=== PATIENT | male | born 1940 | race Caucasian/White ===

== ENCOUNTER 2017-09-15 12:24 | Day surgery (SDC) | payer MEDICARE, OTHER ==
[~2017-09-15] VITALS: Ht 175.3 cm; Wt 90.7 kg
[~2017-09-15 12:24] MED LIST: ACYCLOVIR200 MG PO; ASPIRIN EC325 MG PO; ATENOLOL25 MG PO; BISOPROLOL FUMAR5 MG PO; COZAAR25 MG PO; CRESTOR40 MG NG; LIPITOR40 MG PO; NORCO 5-325 TA1 EACH PO; PRAVASTATIN SOD40 MG PO; SEPTRA DS TABL1 EACH PO
[2017-09-15] MEDS ORDERED: ASPIR-LOW81 MG PO (12:43)
[2017-09-15] MEDS ORDERED: CENTRUM SILVER1 EAC3 PO (12:44)
--- NOTE | 2017-09-15 15:27 | NUR ---
09/15/17 Maureen7 Silvia Best 1523-PATIENT ARRIVED TO PACU ON 2L NC O2 SAT 100% PATIENT AWAKE DENIES PAIN OR NAUSEA. RR EVEN. ABDOMEN SOFT LAYING LEFT LATERAL. PASSING FLATUS.
--- NOTE | 2017-09-16 09:53 | OR ---
[facility] [address], [place] [address] Signed DATE OF OPERATION: 09/15/2017 SURGEON: Emre Mendoza MD PREOPERATIVE DIAGNOSIS: History of hyperplastic polyp 2008. POSTOPERATIVE DIAGNOSIS: Normal colon to cecum. PROCEDURE: Total colonoscopy to cecum. ANESTHESIA: Intravenous sedation, fentanyl 100 mcg, Versed 5 mg. INDICATION: This 76-year-old white man is a patient of Dr. Villegas. He underwent colonoscopy by me in 2008, at which time he was found to have a hyperplastic polyp. He has been referred for screening colonoscopy on the basis of his age and time interval since last colonoscopy. The risks of bleeding, infection, and perforation related to colonoscopy reviewed with him. He understands and wished to proceed. FINDINGS: The prep was good. Complete colonoscopy was undertaken to the cecum without question. There were deep sulci of the sigmoid, but no obvious diverticula proper. He had no signs of polyps or other abnormality. PROCEDURE IN DETAIL: The patient was brought to the endoscopy suite and placed in lateral decubitus position, given intravenous sedation to the point of slurred speech and nystagmus. Digital rectal examination was normal. An Olympus video colonoscope was passed in the rectum and manipulated throughout the colon, ultimately intubating the cecum itself. The ileocecal valve and appendiceal orifice were normal. Scope was withdrawn from that point and examination throughout carefully and deliberately showed no evidence of abnormality. In the sigmoid and left colon, were deep sulci of the haustra, but no sign of actual diverticula. Retroflexed view of the rectum was normal. Scope was straightened and withdrawn and removed, and the patient was taken to the recovery room in good condition. Electronically Signed By: EMRE MENDOZA MD 09/16/17 0953 PATIENT NAME: EMRE DAVIS OPERATIVE REPORT DATE OF : 38 REPORT #: [id number] PHYSICIAN: EMRE MENDOZA MD PCP: BETZAIDA MONSIVAIS MD REPORT IS CONFIDENTIAL AND NOT TO BE RELEASED WITHOUT AUTHORIZATION [facility] [address], [place] [address] Signed CONCLUSION DIAGNOSIS: Normal colon. PLAN: Expectant management as he does not have high risk profile for additional development of polyps or cancer. He will return to the ongoing care of Dr. Villegas. MD PRUDENCE Niño/MODL /[id number] cc: Ilia Villegas MD Copies: ILIA VILLEGAS MD ~ Electronically Signed By: EMRE MENDOZA MD 09/16/17 0953 PATIENT NAME: EMRE DAVIS MIRYAM OPERATIVE REPORT DATE OF : 38 REPORT #: [id number] PHYSICIAN: EMRE MENDOZA MD PCP: BETZAIDA MONSIVAIS MD REPORT IS CONFIDENTIAL AND NOT TO BE RELEASED WITHOUT AUTHORIZATION
== END 2017-09-15 16:15 | disposition home or self-care (01) ==
LOC: OPS 12:24 → DS 12:24 → OPS 13:00 → DS 13:00 → OPS 16:15
PROVIDERS: Surgery
PROC: 0DJD8ZZ Inspection of Lower Intestinal Tract, Via Natural or Artificial Opening Endoscopic (ICD-10-PCS; principal; 2017-09-15 13:00)
DX: Z12.11 Encounter for screening for malignant neoplasm of colon (principal); E78.00 Pure hypercholesterolemia, unspecified; I10 Essential (primary) hypertension; Z86.010 Personal history of colon polyps; Z88.8 Allergy status to other drugs, medicaments and biological substances; Z87.891 Personal history of nicotine dependence; Z98.890 Other specified postprocedural states; Z98.41 Cataract extraction status, right eye; Z98.42 Cataract extraction status, left eye; Z90.89 Acquired absence of other organs; Z95.3 Presence of xenogenic heart valve; Z86.14 Personal history of Methicillin resistant Staphylococcus aureus infection
CPT/HCPCS: 99153; G0500; J0290; J1580; J2250; J3010; J7120

== ENCOUNTER 2018-08-28 13:37 | Emergency (ER) | payer MEDICARE, OTHER ==
[~2018-08-28] VITALS: Ht 175.3 cm; Wt 90.7 kg
[~2018-08-28 13:37] MED LIST changes: +AMOXICILLIN500 MG PO; +ASPIR-LOW81 MG PO; +CENTRUM SILVER1 EAC3 PO; +TRIAMCINOLONE A15 GM TOP
[2018-08-28] MEDS ORDERED: LEVOTHYROXINE25 MCG PO (13:50)
--- NOTE | 2018-08-29 13:56 | EKG ---
[facility] [address] [facility] [place] [address] Signed Sinus bradycardia Left anterior fascicular block Abnormal ECG No previous ECGs available Confirmed by BURT CANNON MD ([id number]) on 08/29/2018 1:56:09 PM Electronically Signed By: BURT CANNON MD 08/29/18 1356 PATIENT NAME: EMRE DAVIS Electrocardiogram DATE OF : 38 PHYSICIAN: BURT CANNON MD REPORT #: [id number] REPORT IS CONFIDENTIAL AND NOT TO BE RELEASED WITHOUT AUTHORIZATION
== END 2018-08-28 16:36 | disposition short-term general hospital (02) ==
LOC: ED 13:37
DX: S82.102A Unspecified fracture of upper end of left tibia, initial encounter for closed fracture (principal); S82.832A Other fracture of upper and lower end of left fibula, initial encounter for closed fracture; V00.328A Other snow-ski accident, initial encounter; I10 Essential (primary) hypertension; Z88.5 Allergy status to narcotic agent; Z88.8 Allergy status to other drugs, medicaments and biological substances; Z79.899 Other long term (current) drug therapy; Z79.82 Long term (current) use of aspirin
CPT/HCPCS: 71045; 73560; 73590; 80053; 81001; 85025; 85610; 90471; 90714; 93005; 93010; 96374; 99291; J3010

== ENCOUNTER → 2018-10-12 | Emergency (ER) | payer MEDICARE, OTHER ==
[~2018-10-12] VITALS: Ht 175.3 cm; Wt 90.7 kg
[~2018-10-12] MED LIST changes: +LEVOTHYROXINE25 MCG PO; +TAMSULOSIN HCL0.4 MG PO
--- OUTSIDE RECORDS SUMMARY | ~2018-10-12 | XMS | Clinical Summary ---
Demographics + + + | Address | [address] | | | [place] [address] | + + + | Home Phone | | + + + | Preferred Language | Unknown | + + + | Marital Status | | + + + | [employer] Affiliation | LUT | + + + | Race | White | + + + | Ethnic Group | Not or | + + + Author + + + | Author | [facility] | + + + | Organization | [facility] | + + + | Address | Unknown | + + + | Phone | Unavailable | + + + Support + + + + + | Name | Relationship | Address | Phone | + + + + + | STANTON MENENDEZ | ECON | [place] | | + + + + + Care Team Providers + +------+ + | Care Heavy Threader Name | Role | Phone | + +------+ + | Ilia Villegas MD | PP | | + +------+ + Source Comments [facility] is fully live on both EpicCare Ambulatory and EpicCare InPatient[facility] Allergies + + + + + + | Active Allergy | Reactions | Severity | Noted | Comments | | | | | Date | | + + + + + + | Codeine | Rash | | 08/28/19 | | | | | | 19 | | + + + + + + | Carvedilol | Hives | | 08/28/19 | | | | | | 19 | | + + + + + + | Rosuvastatin | Hives | | 08/28/19 | | | | | | 19 | | + + + + + + | Atorvastatin Calcium | Rash | | 08/28/19 | | | | | | 19 | | + + + + + + | Lisinopril | Hives | | 08/28/19 | | | | | | 19 | | + + + + + + | Metoprolol | Rash | | 08/28/19 | | | | | | 19 | | + + + + + + Current Medications + + +---------+---------+------+------+-------+ | Prescription | Sig. | Disp. | Refills | Star | End | Statu | | | | | | t | Date | s | | | | | | Date | | | + + +---------+---------+------+------+-------+ | losartan 100 mg | Take 100 mg by mouth | | | | | Activ | | oral | once daily. | | | | | e | | tabletIndications: | Indications: high | | | | | | | high blood pressure | blood pressure | | | | | | + + +---------+---------+------+------+-------+ | pravastatin 40 mg | Take 40 mg by mouth | | | | | Activ | | oral tablet | once daily at | | | | | e | | | bedtime. | | | | | | + + +---------+---------+------+------+-------+ | bisoprolol 5 mg | Take 5 mg by mouth | | | | | Activ | | oral tablet | once daily. | | | | | e | + + +---------+---------+------+------+-------+ | levothyroxine 25 | Take 25 mcg by mouth | | | | | Activ | | mcg oral tablet | before breakfast. | | | | | e | + + +---------+---------+------+------+-------+ | aspirin EC 81 mg | Take 81 mg by mouth | | | | | Activ | | oral tablet,delayed | once daily. | | | | | e | | release (DR/EC) | | | | | | | + + +---------+---------+------+------+-------+ | TURMERIC ORAL | Take 900 mg by mouth | | | | | Activ | | | once daily. | | | | | e | + + +---------+---------+------+------+-------+ | acyclovir 400 mg | Take 400 mg by mouth | | | | | Activ | | oral tablet | four times daily as | | | | | e | | | needed (Cold | | | | | | | | sores). | | | | | | + + +---------+---------+------+------+-------+ | acetaminophen 500 | Take 2 tablets by | | | 02/2 | | Activ | | mg oral tablet | mouth three times | | | 820 | | e | | | daily. Use this | | | 19 | | | | | medication to help | | | | | | | | wean off your | | | | | | | | stronger opiate | | | | | | | | medication. DO NOT | | | | | | | | exceed 3200 mg in a | | | | | | | | 24 hr period. | | | | | | + + +---------+---------+------+------+-------+ | oxyCODONE | Take 1 to 2 tablets | 90 | 0 | 02/2 | | Activ | | (immediate release) | by mouth every three | tablet | | 820 | | e | | 5 mg oral | hours as needed | | | 19 | | | | tabletIndications: | (moderate pain | | | | | | | Closed fracture of | refractory to | | | | | | | left tibia and | non-opiates). | | | | | | | fibula, initial | | | | | | | | encounter | | | | | | | + + +---------+---------+------+------+-------+ | polyethylene | Mix 1 packet and | 24 | 0 | 02/2 | | Activ | | glycol 17 gram oral | take orally once | packet | | 820 | | e | | powder in packet | daily as needed (1st | | | 19 | | | | | line - for no BM | | | | | | | | for 2 days). | | | | | | + + +---------+---------+------+------+-------+ | senna-docusate | Take 1 tablet by | | | 02/2 | | Activ | | 8.6-50 mg oral | mouth two times | | | 8/20 | | e | | tablet | daily. | | | 19 | | | + + +---------+---------+------+------+-------+ | tamsulosin 0.4 mg | Take 1 capsule by | 60 | 0 | 02/2 | | Activ | | oral capsule | mouth once daily. | capsule | | 8/20 | | e | | | | | | 19 | | | + + +---------+---------+------+------+-------+ Active Problems + + + | Problem | Noted Date | + + + | Acquired hypothyroidism | 08/31/2018 | + + + | Closed fracture of left tibia and fibula, initial encounter | 08/29/2018 | + + + Encounters +--------+ + + + + | Date | Type | Specialty | Care Team | Description | +--------+ + + + + | 09/02/ | Pharmacy | | | | | 2019 | Visit | | | | +--------+ + + + + | 08/30/ | Procedure | | | | | 2019 | Pass | | | | +--------+ + + + + | 08/30/ | Surgery | | Richard Gonzalez, | Open Reduction | | 2018 | | | MD | Internal | | | | | | Fixationleft tibial | | | | | | plateau fracture | +--------+ + + + + | 08/29/ | Anesthesia | | Nidhi High MD | | | 2019 | Event | | | | +--------+ + + + + | 08/28/ | Hospital | | Jesus Manuel, | | | 2019 - | Encounter | | Jeffrey Hull MD | | | | | | Yesenia Hong MD | | | 09/02/ | | | Richard Gonzalez MD | | | 2018 | | | | | +--------+ + + + + +---+ + | | Discharge | | | Summaries | | | - Shatzer, | | | Natalya, | | | AGACNP - | | | 09/02/2018 | | | 8:51 AM | | | PST | | | Formatting | | | of this | | | note may be | | | different | | | from the | | | original.OR | | | [facility] | | | & [facility] | | | [facility] | | | EPARTMENT | | | OF | | | ORTHOPAEDIC | | | S & | | | REHABILITAT | | | IONINPATIEN | | | T HOSPITAL | | | DISCHARGE | | | SUMMARY& | | | INTERDISCIP | | | LINARY | | | INSTRUCTION | | | SPatient: | | | Emre C | | | SpencerMRN: | | | | | | [id number] | | | : | | | [id number] | | | dmission | | | Date: | | | 08/28/2018Di | | | scharge | | | Date: | | | 09/02/2018 | | | Attending | | | Physician: | | | Richard M | | | Friess, | | | MDPCP: | | | Ilia | | | Bakari, | | | MDService: | | | [facility] | | | Orthopaedic | | | s & | | | Rehabilitat | | | ionDiagnose | | | s Principal | | | Final | | | Diagnosis: | | | 1. L | | | bicondylar | | | tibial | | | plateau | | | fracture, | | | nondisplace | | | dProcedures | | | | | | 08/30/2018: | | | 1. ORIF L | | | tibial | | | plateauBrie | | | f Hospital | | | Course Emre | | | Shon is | | | a 77 y.o. | | | male | | | admitted | | | for the | | | procedure(s | | | ) described | | | above. | | | The | | | inpatient | | | stay | | | related to | | | this | | | procedure(s | | | ) took an | | | uncomplicat | | | ed | | | perioperati | | | ve course | | | and the | | | patient was | | | followed | | | closely by | | | the | | | attending | | | providers, | | | resident | | | providers, | | | and | | | medical/maryse | | | sing staff. | | | Post | | | operatively | | | , the | | | patient was | | | admitted | | | to the | | | hospital | | | for | | | convalescen | | | t care. | | | Pain | | | control was | | | managed | | | with iv/po | | | pain | | | medication | | | as needed. | | | The | | | Patient was | | | given | | | 24hrs of IV | | | | | | antibiotics | | | | | | post-operat | | | ively. For | | | DVT | | | prophylaxis | | | the | | | patient was | | | started on | | | Lovenox | | | and SCDs | | | were also | | | used. The | | | patient | | | made | | | appropriate | | | gains | | | toward | | | activity | | | and | | | functional | | | goals while | | | an | | | inpatient, | | | working | | | daily with | | | physical | | | therapy. | | | While on | | | the | | | hospital | | | floor, the | | | patient | | | tolerated | | | oral intake | | | sufficient | | | to | | | maintain | | | nutrition | | | and | | | hydration. | | | The | | | surgical | | | wound | | | remained | | | clean, dry, | | | and intact | | | without | | | signs | | | concerning | | | for | | | infection. | | | The | | | patient was | | | felt | | | appropriate | | | for | | | discharge | | | to home, | | | and the | | | patient | | | and/or | | | family | | | members | | | agree with | | | this course | | | of action. | | | Diet | | | Regular | | | Regular | | | diet- There | | | are no | | | restriction | | | s to your | | | diet. You | | | may eat or | | | drink | | | whatever | | | you prefer, | | | though | | | healthy | | | food | | | choices are | | | | | | recommended | | | . Wound | | | Care - If | | | you have | | | sutures or | | | gus, do | | | not get | | | your wound | | | wet for 3-5 | | | days after | | | your | | | operation. | | | Sponge bath | | | or cover | | | the | | | incision | | | with a | | | waterproof | | | bandage. | | | Keep your | | | incision | | | covered | | | with a | | | dressing | | | until there | | | is no | | | discharge | | | on | | | bandage.- | | | If you have | | | | | | Steri-Strip | | | s (paper | | | tape) over | | | your | | | incision, | | | keep the | | | incision | | | covered | | | until there | | | is no | | | discharge | | | on bandage. | | | Do not | | | remove | | | Steri-Strip | | | s, they | | | will fall | | | off on | | | their own. | | | Trim edges | | | of the | | | Steri-Strip | | | s if they | | | start to | | | peel up. Do | | | not get | | | your wound | | | wet for 5-7 | | | days after | | | your | | | operation.- | | | Once wound | | | is closed | | | (no | | | drainage), | | | you may | | | shower. Let | | | water run | | | over wound. | | | Pat dry. | | | Do not | | | scrub or | | | soak wound | | | in water.- | | | Avoid using | | | lotions, | | | powders, | | | oils, or | | | ointments | | | on your | | | incision.- | | | DO NOT let | | | anyone | | | start you | | | on | | | antibiotics | | | if they | | | suspect | | | your wound | | | is | | | infected. | | | Call [facility] | | | Orthopedics | | | first at | | | [phone] | | | 0. Activity | | | | | | Nonweightbe | | | aring left | | | leg | | | Condition | | | on | | | Discharge | | | Stable | | | Follow-Up | | | Appointment | | | s | | | ORTHOPEDICS | | | OUTPATIENT | | | CLINIC: [place] | | | to have | | | local | | | provider | | | (PCP) | | | remove | | | sutures in | | | 3 weeks | | | (~09/20). | | | Follow up | | | in 6 weeks | | | (~10/11) with | | | Dr Gonzalez. | | | Call | | | [phone] | | | 0 to | | | confirm or | | | schedule | | | this | | | appointment | | | . PCP: As | | | needed for | | | any medical | | | concerns | | | not related | | | to your | | | surgery. | | | Medication | | | List START | | | taking | | | these | | | medications | | | | | | acetaminoph | | | en 500 mg | | | TabCommonly | | | known as: | | | | | | TYLENOLTake | | | 2 tablets | | | by mouth | | | three times | | | daily. Use | | | this | | | medication | | | to help | | | wean off | | | your | | | stronger | | | opiate | | | medication. | | | DO NOT | | | exceed 3200 | | | mg in a 24 | | | hr period. | | | oxyCODONE | | | (immediate | | | release) 5 | | | mg | | | TabCommonly | | | known as: | | | | | | ROXICODONET | | | mahi 1 to 2 | | | tablets by | | | mouth every | | | three | | | hours as | | | needed | | | (moderate | | | pain | | | refractory | | | to | | | non-opiates | | | ). | | | polyethylen | | | e glycol 17 | | | gram | | | PwpkCommonl | | | y known as: | | | | | | MIRALAXMix | | | 1 packet | | | and take | | | orally once | | | daily as | | | needed (1st | | | line - for | | | no BM for | | | 2 days). | | | senna-docus | | | ate 8.6-50 | | | mg | | | TabCommonly | | | known as: | | | SENOKOT | | | STake 1 | | | tablet by | | | mouth two | | | times | | | daily. | | | tamsulosin | | | 0.4 mg | | | CapCommonly | | | known as: | | | FLOMAXTake | | | 1 capsule | | | by mouth | | | once daily. | | | CONTINUE | | | taking | | | these | | | medications | | | acyclovir | | | 400 mg | | | TabCommonly | | | known as: | | | | | | ZOVIRAXTake | | | 400 mg by | | | mouth four | | | times daily | | | as needed | | | (Cold | | | sores). | | | aspirin EC | | | 81 mg | | | TbecTake 81 | | | mg by | | | mouth once | | | daily. | | | bisoprolol | | | 5 mg | | | TabCommonly | | | known as: | | | ZEBETATake | | | 5 mg by | | | mouth once | | | daily. | | | levothyroxi | | | ne 25 mcg | | | TabTake 25 | | | mcg by | | | mouth | | | before | | | breakfast. | | | losartan | | | 100 mg | | | TabCommonly | | | known as: | | | COZAARTake | | | 100 mg by | | | mouth once | | | daily. | | | Indications | | | : high | | | blood | | | pressure | | | pravastatin | | | 40 mg | | | TabCommonly | | | known as: | | | | | | PRAVACHOLTa | | | ke 40 mg by | | | mouth once | | | daily at | | | bedtime. | | | TURMERIC | | | ORALTake | | | 900 mg by | | | mouth once | | | daily. ASK | | | your | | | doctor | | | about these | | | | | | medications | | | RX | | | DURABLE | | | MEDICAL | | | EQUIPMENT | | | MI19" | | | wheelchair | | | with | | | elevated | | | leg lifts | | | Duration:3m | | | o Problem: | | | Closed | | | fracture of | | | left tibia | | | and | | | fibula, | | | initial | | | encounter | | | Associated | | | ICD10 Code: | | | S82.202A, | | | S82.402AAsk | | | about: | | | Should I | | | take this | | | medication? | | | [facility] | | | Orthopaedic | | | Service | | | Pain Policy | | | At the | | | 6-week | | | post-operat | | | sweta jered, | | | pain | | | management | | | will be | | | reassessed | | | and pain | | | management | | | recommendat | | | ions may be | | | modified | | | by the | | | discretion | | | of the | | | Provider. | | | At the | | | 3-month | | | post-operat | | | sweta jered, | | | the patient | | | will be | | | referred to | | | pain | | | management | | | for ongoing | | | pain of | | | poly-trauma | | | , referred | | | to PCP, or | | | transitione | | | d to | | | Tylenol.All | | | refills | | | must be | | | requested | | | through a | | | pharmacy. | | | The | | | pharmacy | | | may then | | | either call | | | the office | | | with a | | | request or | | | fax the | | | request to | | | clinic.Beti | | | ents must | | | give the | | | Outpatient | | | Clinic a | | | minimum of | | | 72 hours to | | | refill or | | | deny | | | narcotic | | | prescriptio | | | n from the | | | time that | | | they | | | receive | | | request | | | from | | | pharmacy. | | | Requests | | | received | | | after 3pm | | | will not be | | | processed | | | until the | | | following | | | business | | | day.Prescri | | | ptions will | | | not be | | | available | | | through our | | | office | | | after-hours | | | , weekends, | | | and | | | holidays. | | | NO | | | EXCEPTIONS. | | | Deep Vein | | | Thrombosis | | | (Leg Blood | | | Clot) | | | Prevention | | | DVT | | | prophylaxis | | | : You are | | | at | | | increased | | | risk of | | | forming a | | | blood clot | | | following | | | your | | | surgery.- | | | We have | | | recommended | | | that you | | | take | | | Aspirin for | | | 4 weeks | | | following | | | your | | | surgery to | | | decrease | | | this risk.- | | | See | | | discharge | | | prescriptio | | | ns for | | | administrat | | | ion | | | instruction | | | s.- Call | | | Orthopedic | | | Clinic at | | | [phone] | | | 0 if any | | | persistent, | | | localized | | | swelling | | | that does | | | not improve | | | with time | | | or | | | elevation | | | or if you | | | have any | | | persistent | | | calf pain, | | | shortness | | | of breath | | | or chest | | | pain.Contac | | | t Your | | | Physician | | | When to | | | Call: 1. | | | Difficulty | | | breathing, | | | chest pain | | | or unusual | | | shortness | | | of breath; | | | 2. | | | Excessive | | | bleeding, | | | drainage, | | | redness, | | | swelling at | | | the | | | operative | | | site (if | | | the wound | | | appears to | | | be worse | | | instead of | | | better each | | | day); 3. | | | Fevers, | | | chills, | | | increased | | | pain that | | | is not | | | relieved by | | | pain | | | medications | | | ; 4. | | | Persistent | | | nausea or | | | vomiting; | | | 5. Other | | | specific | | | concerns; | | | Please | | | call:- | | | [phone] | | | 00 during | | | business | | | hours | | | (8:00am - | | | 4:30pm)- | | | [phone] | | | 11 if after | | | hours and | | | ask for the | | | | | | orthopaedic | | | surgery | | | resident on | | | | | | call.Additi | | | onal | | | Post-Op | | | Instruction | | | s / What to | | | Expect | | | CONSTIPATIO | | | N - To | | | prevent | | | constipatio | | | n you have | | | been | | | advised to | | | purchase | | | over the | | | counter | | | medications | | | that will | | | help you | | | have a | | | bowel | | | movement. | | | These | | | medications | | | include | | | senna and | | | miralax. | | | Take these | | | medications | | | together | | | until you | | | have a | | | bowel | | | movement. | | | Once you | | | reach your | | | goal, you | | | can reduce | | | or stop | | | taking one | | | or both | | | medications | | | . If you | | | have loose | | | or | | | excessive | | | stools stop | | | taking the | | | | | | medication. | | | Also keep | | | in mind | | | that eating | | | a well | | | balanced | | | diet with | | | plenty of | | | fruits and | | | vegetables; | | | proper | | | hydration; | | | and walking | | | can also | | | help | | | encourage | | | bowel | | | movements. | | | -Apply ice | | | over the | | | surgical | | | site for 20 | | | minutes at | | | a time as | | | needed for | | | pain.-Avoid | | | alcohol | | | and smoking | | | during the | | | healing | | | process.-Yo | | | u may | | | experience | | | numbness | | | that is | | | usually | | | temporary.- | | | There will | | | be bruising | | | and | | | swelling | | | that should | | | improve in | | | the first | | | 2 weeks.-To | | | reduce | | | likelihood | | | of falling | | | at home, | | | remove | | | throw rugs, | | | loose | | | wires or | | | other | | | objects | | | from floor | | | and leave | | | some lights | | | on at | | | night.- | | | Elevate | | | your | | | extremity | | | whenever | | | possible to | | | improve | | | pain and | | | swelling.Pa | | | in | | | Management | | | Opiate | | | medications | | | . Per | | | policy, you | | | will have | | | only been | | | written for | | | 7 days of | | | opiates | | | upon | | | discharge. | | | It is best | | | for your | | | health to | | | taper these | | | | | | medications | | | gradually | | | over the | | | next 7 | | | days. We | | | recommend | | | extend the | | | time | | | interval | | | between the | | | doses to | | | taper. The | | | | | | alternative | | | would be | | | to maintain | | | the same | | | time | | | interval, | | | but | | | decrease | | | the dose. | | | Example | | | Taper: DOSE | | | every 4 | | | hours at | | | time of | | | discharge | | | Day 1: DOSE | | | every 4 | | | hrDays 2: | | | DOSE every | | | 5 hours | | | Days 3 - 4: | | | DOSE every | | | 6 hours | | | Day 4 - 5: | | | DOSE every | | | 8 hoursDay | | | 6: DOSE | | | every 12 | | | hoursDay 7: | | | infrequent | | | dose, only | | | as needed, | | | no more | | | than once a | | | day or | | | with PT | | | Over the | | | Counter | | | Medications | | | :You are | | | encouraged | | | to use | | | acetaminoph | | | en (aka | | | Tylenol) as | | | long as | | | you have no | | | history of | | | liver | | | issues. | | | The maximum | | | daily dose | | | of | | | acetaminoph | | | en is | | | 4000mg a | | | day. | | | Please | | | follow the | | | directions | | | on the | | | bottle | | | closely. | | | One | | | commonly | | | used | | | regimen | | | while you | | | are in the | | | hospital is | | | 1,000mg | | | three times | | | daily, or | | | 650mg four | | | times | | | daily. | | | Please stop | | | using | | | immediately | | | is you are | | | having | | | right sided | | | abdominal | | | pain, | | | appear | | | yellow and | | | seek | | | medical | | | attention | | | immediately | | | . - You | | | are advised | | | to not | | | drive, | | | operate | | | heavy | | | equipment, | | | or consume | | | alcohol | | | while on | | | prescriptio | | | n narcotic | | | pain | | | medication. | | | - Take a | | | stool | | | softener | | | while | | | taking | | | narcotic | | | pain | | | medication | | | in order to | | | prevent | | | constipatio | | | n.- If you | | | are running | | | out of | | | pain | | | medication | | | and feel | | | that you | | | will need | | | more, call | | | [phone] | | | 0 during | | | business | | | hours in | | | order to | | | get a new | | | prescriptio | | | n. Please | | | allow 48 | | | hours for | | | refills to | | | be | | | processed.- | | | Schedule | | | II | | | narcotics | | | can NOT be | | | called in | | | to a | | | pharmacy. | | | Please | | | arrange for | | | someone to | | | coal picker | | | your | | | prescriptio | | | n or allow | | | additional | | | time for | | | our clinic | | | to mail you | | | requested | | | refill.- | | | On-call | | | (after | | | hours) MDs | | | are not | | | permitted | | | to | | | prescribe | | | narcotic | | | pain | | | medications | | | .- | | | Prescriptio | | | ns will not | | | be | | | available | | | through our | | | office on | | | weekends or | | | | | | holidays.Ho | | | me Health | | | Referral | | | after | | | Hospitaliza | | | tion | | | Comments: I | | | certify | | | that this | | | patient is | | | under my | | | care and | | | that I, or | | | Nurse | | | Practitione | | | r or | | | Physician | | | Event Planning Intern | | | working | | | with me, | | | had a face | | | to face | | | encounter | | | with this | | | patient on | | | 09/01/2018On | | | behalf of | | | Attending | | | Physician: | | | Richard M | | | Friess, MDI | | | am | | | ordering | | | and certify | | | that the | | | following | | | services | | | are | | | medically | | | necessary | | | home health | | | services | | | Home Health | | | Physical | | | Therapy | | | Evaluate | | | and Treat | | | I am | | | ordering | | | and certify | | | that the | | | following | | | services | | | are | | | medically | | | necessary | | | home health | | | services | | | Home Health | | | | | | Occupationa | | | l Therapy | | | Evaluate | | | and Treat | | | I am | | | ordering | | | and certify | | | that the | | | following | | | services | | | are | | | medically | | | necessary | | | home health | | | services | | | Home Health | | | Care/Bath | | | Aid I | | | certify | | | that the | | | patient is | | | homebound | | | based on | | | the | | | following | | | clinical | | | findings | | | Post-hospit | | | al | | | weakness, | | | decreased | | | strength | | | and | | | endurance, | | | and tires | | | easily with | | | minimal | | | exertion | | | Vital Signs | | | on | | | Discharge: | | | Ht 1.778 m | | | (5' 10"), | | | Wt 89.6 kg | | | (197 lb 8 | | | oz), BP | | | 122/79, | | | Pulse 70, | | | Temperature | | | 36.6 C | | | (97.9 F), | | | RR 16, | | | SpO2 92%, | | | BMI 28.34 | | | kg/(m^2). | | | Facility | | | age limit | | | for growth | | | percentiles | | | is 17 | | | years. | | | Condition | | | on | | | Discharge: | | | ImprovedDis | | | charging | | | Patient To: | | | Home Date | | | and Time | | | of | | | Discharge | | | Summary | | | Completion: | | | 09/02/2018, | | | 8:51 AM | | | Discharging | | | Provider: | | | Natalya Vazquez | | | [place], | | | AGACNPDisch | | | arging | | | Attending: | | | Richard M | | | MD Carlos | | | Thank you | | | for the | | | opportunity | | | to take | | | care of | | | Emre C | | | Shon | | | during this | | | inpatient | | | stay, it | | | has been | | | our | | | pleasure.Je | | | nnifer C. | | | [place], | | | AGACNP===== | | | | | | | | | | | | | | | | | | ====[place] | | | Health & | | | Science | | | [facility] | | | epartment | | | of | | | Orthopaedic | | | s & | | | Rehabilitat | | | [id number] | | [address] | | | [address] | | | [address] | | | [address]: | | | [id number] | | | [place] | | | [phone] | | [phone] | | | | | | | | | | | | | | | | | | | | | ========= | +---+ + +--------+--------+---+---+-----+ | 08/28/ | Intake | | | N/A | | 2019 | | | | | +--------+--------+---+---+-----+ from Last 3 Months Family History + + +------+ + | Medical History | Relation | Name | Comments | + + +------+ + | Emphysema | Brother | | | + + +------+ + | Lupus | Father | | | + + +------+ + | Coronary Artery | Mother | | | | Disease | | | | + + +------+ + | Heart Disease | Mother | | | + + +------+ + + +------+ + + | Relation | Name | Status | Comments | + +------+ + + | Brother | | | | + +------+ + + | Father | | | | + +------+ + + | Mother | | | | + +------+ + + Social History + +-------+ +--------+ + | Tobacco Use | Types | Packs/Day | Years | Date | | | | | Used | | + +-------+ +--------+ + | Former Smoker | | 1 | | Quit: 07/06/1971 | + +-------+ +--------+ + + +---+---+---+ | Smokeless Tobacco: | | | | | Never Used | | | | + +---+---+---+ + + +---------+ + | Alcohol Use | Drinks/We | oz/Week | Comments | | | ek | | | + + +---------+ + | Yes | | | 1 drink/day | + + +---------+ + + + + | Sex Assigned at | Date Recorded | | | | + + + | Not on file | | + + + Last Filed Vital Signs + + + + | Vital Sign | Reading | Time Taken | + + + + | Blood Pressure | 124/60 | 09/02/2018 12:57 PM PST | + + + + | Pulse | 60 | 09/02/2018 12:57 PM PST | + + + + | Temperature | 36.8 C (98.2 F) | 09/02/2018 12:57 PM PST | + + + + | Respiratory Rate | 16 | 09/02/2018 12:57 PM PST | + + + + | Oxygen Saturation | 95% | 09/02/2018 12:57 PM PST | + + + + | Inhaled Oxygen | - | - | | Concentration | | | + + + + | Weight | 89.6 kg (197 lb 8 | 08/29/2018 12:00 AM PST | | | oz) | | + + + + | Height | 177.8 cm (5' 10") | 08/29/2018 12:00 AM PST | + + + + | Body Mass Index | 28.34 | 08/29/2018 12:00 AM PST | + + + + Plan of Treatment +--------+---------+ + + + | Date | Type | Specialty | Care Team | Description | +--------+---------+ + + + | 10/19/ | Office | | Richard Gonzalez, | | | 2018 | Visit | | [address] | | | | | | [address] | | | | | | [place], [place] | | | | | | [address] | | | | | | [phone] | | | | | | | | +--------+---------+ + + + + + + + + | Health Maintenance | Due Date | Last Done | Comments | + + + + + | Pneumococcal (Adult) | | | | | (1 of 2 - PCV13) | 5 | | | + + + + + | Influenza (Flu) | Completed | 03/29/2018, 04/15/2016, | | | vaccination | | 03/30/2013, Additional history | | | | | exists | | + + + + + Implants + +------+------+ +--------+--------+--------+ | Implanted | Type | Area | Manufacture | Device | Expira | Model | | | | | r | | tion | / | | | | | | Identi | Date | Serial | | | | | | fier | | / Lot | + +------+------+ +--------+--------+--------+ | Plate 220mm Stainless Steel 9 | | | [employer] | | | 222.22 | | Hole Lcp Bone Tibia Left | | | | | | 5 / / | | Proximal Lateral Nonsterile - | | | | | | | | [id number]: Qty: 1 | | | | | | | | on 08/30/2018 by Carlos, | | | | | | | | Richard English MD | | | | | | | + +------+------+ +--------+--------+--------+ | Screw Bone 5mm 46mm Lcp | | | [employer] | | | 212.21 | | Stainless Steel T25 Full | | | | | | 7 / / | | Thread Cone Periarticular | | | | | | | | Cortical Fix Angle Self - | | | | | | | | [id number]: Qty: 1 on | | | | | | | | 08/30/2018 by Richard Gonzalez | | | | | | | | MD Amador | | | | | | | + +------+------+ +--------+--------+--------+ | Screw Bone 5mm 50mm Lcp | | | [employer] | | | 212.21 | | Stainless Steel T25 Full | | | | | | 9 / / | | Thread Cone Periarticular | | | | | | | | Cortical Fix Angle Self - | | | | | | | | [id number]: Qty: 1 on | | | | | | | | 08/30/2018 by Richard Gonzalez | | | | | | | | M, MD | | | | | | | + +------+------+ +--------+--------+--------+ | Screw Bone 5mm 60mm Lcp | | | [employer] | | | 212.22 | | Stainless Steel T25 Full | | | | | | 1 / / | | Thread Cone Periarticular | | | | | | | | Cortical Fix Angle Self - | | | | | | | | [id number]: Qty: 1 on | | | | | | | | 08/30/2018 by Richard Gonzalez | | | | | | | | M, MD | | | | | | | + +------+------+ +--------+--------+--------+ | Screw Bone 5mm 75mm Lcp | | | [employer] | | | 212.22 | | Stainless Steel Full Thread | | | | | | 4 / / | | Periarticular Cortical Self | | | | | | | | Tapping Tip Locking - | | | | | | | | [id number]: Qty: 1 on | | | | | | | | 08/30/2018 by Richard Gonzalez | | | | | | | | M, MD | | | | | | | + +------+------+ +--------+--------+--------+ | Screw Bone 5mm 80mm Lcp | | | [employer] | | | 212.22 | | Stainless Steel Full Thread | | | | | | 5 / / | | Periarticular Cortical T25 | | | | | | | | Stardrive Self Tap - | | | | | | | | [id number]: Qty: 1 on | | | | | | | | 08/30/2018 by Richard Gonzalez | | | | | | | | Amador, MD | | | | | | | + +------+------+ +--------+--------+--------+ | Screw Bone 4.5mm 8mm 34mm Lcp | | | [employer] | | | 214.83 | | Stainless Steel | | | | | | 4 / / | | Periarticular Condyle | | | | | | | | Cortical Self Tapping Large - | | | | | | | | [id number]: Qty: 3 | | | | | | | | on 08/30/2018 by Carlos, | | | | | | | | Richard English MD | | | | | | | + +------+------+ +--------+--------+--------+ | Screw Bone 4.5mm 38mm Lc-Dcp | | | [employer] | | | 214.83 | | Dhs Dcs Stainless Steel | | | | | | 8 / / | | Cortical Self Tapping | | | | | | | | Nonsterile Large Fragment - | | | | | | | | [id number]: Qty: 1 on | | | | | | | | 08/30/2018 by Richard Gonzalez | | | | | | | | M, MD | | | | | | | + +------+------+ +--------+--------+--------+ | Screw Bone 4.5mm 40mm Lcp | | | [employer] | | | 214.84 | | Stainless Steel Standard | | | | | | 0 / / | | Cortical Self Tapping Tip | | | | | | | | Nonsterile - | | | | | | | | [id number]: Qty: 1 on | | | | | | | | 08/30/2018 by Richard Gonzalez | | | | | | | | M, MD | | | | | | | + +------+------+ +--------+--------+--------+ Procedures + +--------+ + + + | Procedure Name | Priori | Date/Time | Associated Diagnosis | Comments | | | ty | | | | + +--------+ + + + | PROCEDURE NOTE | Routin | 09/02/2018 | | Results for this | | | e | 2:24 PM | | procedure are in the | | | | PST | | results section. | + +--------+ + + + | PROCEDURE NOTE | Routin | 08/30/2018 | | Results for this | | | e | 11:48 PM | | procedure are in the | | | | PST | | results section. | + +--------+ + + + | X-RAY KNEE 2 VIEWS | Urgent | 08/30/2018 | | Results for this | | LEFT | | 8:29 PM | | procedure are in the | | | | PST | | results section. | + +--------+ + + + | CAPILLARY BLOOD | Routin | 08/30/2018 | Closed fracture of | Results for this | | GLUCOSE (NO CHG), | e | 6:16 PM | left tibia and | procedure are in the | | POC | | PST | fibula, initial | results section. | | | | | encounter | | + +--------+ + + + | PROCEDURE NOTE | Routin | 08/30/2018 | | Results for this | | | e | 6:08 PM | | procedure are in the | | | | PST | | results section. | + +--------+ + + + | X-RAY FLUOROSCOPY IN | Urgent | 08/30/2018 | | Results for this | | OR > 1 HOUR | | 5:52 PM | | procedure are in the | | | | PST | | results section. | + +--------+ + + + | X-RAY TIBIA & FIBULA | Urgent | 08/30/2018 | | Results for this | | 2 VIEWS LT | | 5:52 PM | | procedure are in the | | | | PST | | results section. | + +--------+ + + + | ETT | Routin | 08/30/2018 | | Results for this | | | e | 4:24 PM | | procedure are in the | | | | PST | | results section. | + +--------+ + + + | CAPILLARY BLOOD | Routin | 08/30/2018 | Closed fracture of | Results for this | | GLUCOSE (NO CHG), | e | 2:37 PM | left tibia and | procedure are in the | | POC | | PST | fibula, initial | results section. | | | | | encounter | | + +--------+ + + + | PROXIMAL TIBIA | Electi | 08/30/2018 | Left Tibial | | | (PLATEAU) OPEN | ve | 2:16 PM | Plateau Fracture | | | REDUCTION INTERNAL | Surgic | PST | | | | FIXATION | al | | | | + +--------+ + + + | CBC (HEMOGRAM) ONLY | Routin | 08/30/2018 | | Results for this | | | e | 5:00 AM | | procedure are in the | | | | PST | | results section. | + +--------+ + + + | MAGNESIUM, PLASMA | Routin | 08/30/2018 | | Results for this | | | e | 5:00 AM | | procedure are in the | | | | PST | | results section. | + +--------+ + + + | BASIC METABOLIC SET | Routin | 08/30/2018 | | Results for this | | (NA, K, CL, TCO2, | e | 5:00 AM | | procedure are in the | | BUN, CR, GLU, CA) | | PST | | results section. | + +--------+ + + + | CBC ONLY | Routin | 08/30/2018 | | Results for this | | | e | 5:00 AM | | procedure are in the | | | | PST | | results section. | + +--------+ + + + | CARDIOLOGY | | 08/30/2018 | | Results for this | | | | 12:00 AM | | procedure are in the | | | | PST | | results section. | + +--------+ + + + | TRANSTHORACIC | Urgent | 08/29/2018 | | Results for this | | ECHOCARDIOGRAM, | | 2:25 PM | | procedure are in the | | ADULT | | PST | | results section. | + +--------+ + + + | CAPILLARY BLOOD | Routin | 08/29/2018 | Closed fracture of | Results for this | | GLUCOSE (NO CHG), | e | 9:44 AM | left tibia and | procedure are in the | | POC | | PST | fibula, initial | results section. | | | | | encounter | | + +--------+ + + + | X-RAY CHEST 1 VIEW | Urgent | 08/29/2018 | | Results for this | | | | 7:30 AM | | procedure are in the | | | | PST | | results section. | + +--------+ + + + | TROPONIN I, PLASMA | Urgent | 08/29/2018 | | Results for this | | | | 3:11 AM | | procedure are in the | | | | PST | | results section. | + +--------+ + + + | BASIC METABOLIC SET | Urgent | 08/29/2018 | | Results for this | | (NA, K, CL, TCO2, | | 3:11 AM | | procedure are in the | | BUN, CR, GLU, CA) | | PST | | results section. | + +--------+ + + + | 12 LEAD ECG | Routin | 08/28/2018 | | Results for this | | | e | 11:38 PM | | procedure are in the | | | | PST | | results section. | + +--------+ + + + | CT LOWER EXTREMITY | Urgent | 08/28/2018 | | Results for this | | LEFT WO CONTRAST | | 9:59 PM | | procedure are in the | | | | PST | | results section. | + +--------+ + + + | RAINBOW HOLD TUBE - | Urgent | 08/28/2018 | | | | RED TOP | | 8:25 PM | | | | | | PST | | | + +--------+ + + + | RAINBOW HOLD TUBE - | Urgent | 08/28/2018 | | | | PURPLE TOP | | 8:25 PM | | | | | | PST | | | + +--------+ + + + | RAINBOW HOLD TUBE - | Urgent | 08/28/2018 | | | | GREEN TOP | | 8:25 PM | | | | | | PST | | | + +--------+ + + + | RAINBOW HOLD TUBE - | Urgent | 08/28/2018 | | | | BLUE TOP | | 8:25 PM | | | | | | PST | | | + +--------+ + + + | BLOOD BANK HOLD TUBE | Urgent | 08/28/2018 | | Results for this | | - DON | | 8:25 PM | | procedure are in the | | | | PST | | results section. | | T PROCESS | | | | | + +--------+ + + + | RAINBOW HOLD, CORE | Urgent | 08/28/2018 | | Results for this | | PANEL | | 8:25 PM | | procedure are in the | | | | PST | | results section. | + +--------+ + + + | CBC (HEMOGRAM) ONLY | Urgent | 08/28/2018 | | Results for this | | | | 8:25 PM | | procedure are in the | | | | PST | | results section. | + +--------+ + + + | TROPONIN I, PLASMA | Urgent | 08/28/2018 | | Results for this | | | | 8:25 PM | | procedure are in the | | | | PST | | results section. | + +--------+ + + + | CONFIRMATORY ABO/RH | Routin | 08/28/2018 | | Results for this | | | e | 8:25 PM | | procedure are in the | | | | PST | | results section. | + +--------+ + + + | ANTIBODY SCREEN | Routin | 08/28/2018 | | Results for this | | | e | 8:25 PM | | procedure are in the | | | | PST | | results section. | + +--------+ + + + | ABO & RH TYPE | Routin | 08/28/2018 | | Results for this | | | e | 8:25 PM | | procedure are in the | | | | PST | | results section. | + +--------+ + + + | COAGULOPATHY PANEL | Urgent | 08/28/2018 | | Results for this | | (INR,APTT,FIBRINOGEN | | 8:25 PM | | procedure are in the | | ) | | PST | | results section. | + +--------+ + + + | CBC ONLY | Urgent | 08/28/2018 | | Results for this | | | | 8:25 PM | | procedure are in the | | | | PST | | results section. | + +--------+ + + + from Last 3 Months Results PROCEDURE NOTE (09/02/2018 2:24 PM) + + + | Narrative | Performed At | + + + | Richard Gonzalez MD 09/06/2018 12:42 PM Date of Service: | | | 08/30/2018 Attending Surgeon: Richard Gonzalez MD | | | Event Planning Intern(s): kwame barrientos MD Preoperative Diagnosis: 1. left | | | bicondylar tibial plateau fracture. Postoperative Diagnosis: | | | same Procedures Performed: 1. ORIF left bicondylar tibial | | | plateau fracture. Anesthesia: General endotracheal anesthesia. | | | Implants: [employer]ynthes MARIA M proximal tibial locking plates and small | | | fragment screws Indication For Procedure: Emre Menendez who | | | sustained a left bicondylar tibial plateau fracture while skiing. | | | THis is significanlty displaced and unstable nad he was admitted for | | | open reduction and internal fixation once the skin was less | | | swollen. We discussed the procedure, alternatives, risks at length | | | with the patient and family and answered all their questions to | | | their satisfaction. A consent form was signed and leg marked. | | | Procedure In Detail: The patient was identified in the preoperative | | | holding area by name, date, medical record number, and was | | | transported to the operating room and transferred to the operating | | | table where general endotracheal anesthesia was induced without | | | difficulty. We then prepped and draped his left lower extremity | | | in the usual sterile fashion. At this time, a time-out procedure was | | | undertaken during which he was identified and the consent form was | | | reviewed as well as the site marking. It was verified that he had | | | received his preoperative antibiotics as well as the placement of a | | | pneumatic compression device in his right lower extremity, which was | | | on and working. Everyone in the room was in agreement that the | | | correct side, site, and procedure were to take place and the | | | procedure began. After the placement of the tourniquet, the | | | incision was marked and then made with a 15 blade scalpel along the | | | lateral aspect of the leg, curving anterior between Gerdy's tubercle | | | and the fibular head. Sharp dissection was carried down to the | | | level of the bone with an electrocautery. The iliotibial band was | | | reflected from the joint line, and the anterior compartment | | | musculature was reflected posteriorly from the tibial attachments. A | | | sharp sub-meniscal arthrotomy was made, and all sutures were placed | | | into the lateral meniscus, skin, and capsule to lateral the joint | | | surface. A curved circular tamp was then inserted and the | | | articular fragment was elevated. Its position was checked on AP and | | | lateral fluoroscopy images and found to be in adequate position. It | | | was then held into place using a K-wire. The medial tibia plateau | | | was reduced using bumps and clamps placed through a percutaneous | | | incision over the medial tibia plateau. OBth medial and lateral | | | tibia plateau was well reduced. Once this was completed, an | | | appropriately-sized lateral [employer]ynthe[employer] proximal tibial MARIA M locking | | | plate was positioned and provisionally fixed using K-wires. This was | | | checked with fluoroscopy and found to be in adequate position. We | | | then placed a nonlocking shaft screw to adhere the plate to the | | | bone, as well as locking screws proximally, as well as an additional | | | nonlocking 4.5 mm cortical screws within the shaft. We then | | | removed all provisional K-wires and clamps, and final fluoroscopy | | | fluoroscopic images were obtained. It was found at this time that | | | the fracture ends were all adequately reduced and securely held with | | | hardware. The knee was stable to varus and valgus stress. All | | | wounds were then copiously irrigated with sterile saline and the | | | fascia was closed with 0 Vicryl. Subdermal tissue was closed with | | | 2-0 Biosyn and the skin was closed with 3-0 nylon. Sterile | | | Webril was then wrapped, as well as a large Franck wrap. The patient | | | was then awoken from anesthesia and extubated without difficulty and | | | transported back to the postanesthesia care unit. Postoperative | | | Plan: The patient be touchdown weightbearing on his left lower | | | extremity for approximately 6 weeks, given the severity of his | | | fracture. He will follow up in approximately 2-3 weeks locally in | | | [place] with his PCP for suture removal. He will need to return | | | and see me at the 6 week marke with repeat xrasy ap/lateral left | | | knee at his 6 week followup visit. In accordance with medicare | | | guidelines I was present for the critical portion of the procedure. | | | Richard Gonzalez MD | | + + + PROCEDURE NOTE (08/30/2018 11:48 PM)X-RAY KNEE 2 VIEWS LEFT (08/30/2018 8:29 PM) + + + | Narrative | Performed At | + + + | EXAM: KNEE 2 VIEWS LEFT HISTORY: post op tibial plateau, include | [facility] | | all hardware COMPARISON: 08/28/2018 FINDINGS: The proximal | RADIOLOGY VOICE | | tibial fixation plate and screws are intact and in satisfactory | RECOGNITION 2 | | position. The comminuted proximal tibial fracture is in improved | | | anatomic alignment compared to prior exam. The mildly displaced | | | proximal fibular fracture is unchanged. The knee joint remains | | | aligned. There is mild soft tissue swelling and a small joint | | | effusion. Vascular calcifications are noted. IMPRESSION: | | | Intact fixation hardware about a comminuted proximal tibial fracture, | | | in improved anatomic alignment compared to prior exam. Unchanged | | | mildly displaced proximal fibular fracture. I have personally | | | reviewed the images and, if necessary, edited the report. I agree with | | | the report as now presented. Final signature: Douglas Burden, | | | 08/31/2018 8:05 AM Preliminary: Jesse Bernard MD | | | Dictation initiated: Jesse Bernard MD 08/31/2018 7:34 AM | | + + + + + | Procedure Note | + + | Service Account, Radiant Res In Interface - 08/31/2018 8:06 AM PST EXAM: KNEE 2 | | VIEWS LEFT HISTORY: post op tibial plateau, include all hardware COMPARISON: 08/28/2018 | | FINDINGS: The proximal tibial fixation plate and screws are intact and in satisfactory | | position. The comminuted proximal tibial fracture is in improved anatomic alignment | | compared to prior exam. The mildly displaced proximal fibular fracture is unchanged. The | | knee joint remains aligned. There is mild soft tissue swelling and a small joint | | effusion. Vascular calcifications are noted. IMPRESSION: Intact fixation hardware about | | a comminuted proximal tibial fracture, in improved anatomic alignment compared to prior | | exam. Unchanged mildly displaced proximal fibular fracture. I have personally reviewed | | the images and, if necessary, edited the report. I agree with the report as now | | presented. Final signature: Douglas Burden MD 08/31/2018 8:05 AM Preliminary: Jesse | | MD Joana Dictation initiated: Jesse Bernard MD 08/31/2018 7:34 AM | | | |Intact fixation hardware about a comminuted proximal tibial fracture, in improved anatomic alignment compared to prior exam. | | | |Unchanged mildly displaced proximal fibular fracture. | | | |I have personally reviewed the images and, if necessary, edited the report. I agree with e report as now presented. | | | |Final signature: Dougals Burden MD 08/31/2018 8:05 AM | |Preliminary: Jesse Bernard MD | |Dictation initiated: Jesse Bernard MD 08/31/2018 7:34 AM | + + + +---------+ + + | Performing | Address | City/State/Zipcode | Phone Number | | Organization | | | | + +---------+ + + | [facility] | | | | | VOICE RECOGNITION 2 | | | | + +---------+ + + CAPILLARY BLOOD GLUCOSE (NO CHG), POC (08/30/2018 6:16 PM)Only the most recent of 3 result s within the time period is included. + +---------+ + + | Component | Value | Ref Range | Performed At | + +---------+ + + | BLOOD GLUCOSE, POC | 111 (H) | 60 - 99 mg/dL | [facility] | | | | | [facility] | | | | | [facility] | + +---------+ + + + + + + + | Performing | Address | City/State/Zipcode | Phone Number | | Organization | | | | + + + + + | [facility] | [address] | [place] | | | [facility] | [address] | [address] | | | TESTS | | | | + + + + + PROCEDURE NOTE (08/30/2018 6:08 PM) + + + | Narrative | Performed At | + + + | Kwame Barrientos MD 08/30/2018 6:20 PM [facility] | | [facility] Department of Orthopaedics & Rehabilitation | | | BRIEF OPERATIVE NOTE Patient: /Age: MRN: CSN: | | | Date: Admission Date: Hospital Day: Orthopaedic | | | Attending: Emre Menendez 1940 77 y.o. [phone] [id number] | | | 08/30/2018 08/28/2018 2 Richard Gonzalez MD | | | Attending | | | Surgeon: Richard Gonzalez MD Event Planning Intern(s): MD Melchor MARTINEZ | | | MD Johnny Preoperative Diagnosis(es): Left bicondylar | | | tibial plateau fracture, nondisplaced Postoperative | | | Diagnosis(es): same Procedure(s) Performed: Left tibial | | | plateau open reduction internal fixation Anesthesia Type: | | | General Estimated Blood Loss: 100 mL IV Fluids: Please | | | see the anesthesia record Urine Output: Please see the anesthesia | | | record Tourniquet Time: None Complications: None | | | Apparent Orthopaedic Implants: Synthes tibial MARIA M plate | | | Specimens: None Drains: None Findings in | | | Brief: Well-reduced fracture OR Disposition: Transferred | | | from the OR in stable condition. POST PROCEDURE PLAN PACU | | | Disposition: Admit to primary service, ortho consulting, and | | | transfer to the hospital [facility], acute care Care Protocol Items: | | | 1. Immobility due to illness 1. PT/OT: Ordered | | | 2. Weight bearing: touch-down weight bearing, left lower | | | extremity 3. ROM: range of motion as | | | tolerated. 2. VTE prophylaxis: Per primary team, ok for | | | prophylaxis for 2-3 weeks from ortho standpoint 3. Acute | | | pain from illness: oral analgesia and IV analgesia, wean as possible | | | 4. Infectious Disease: ceFAZolin, for 24 hours | | | perioperatively 5. Special Concerns: post-op imaging ordered, | | | brigid out POD#1 6. Disposition: Continue acute inpatient care | | | 7. Orthopaedic Follow-up: ORTHO TRAUMA & FRACTURE, | | | [phone] Please call the clinic to make a follow up appointment | | | in approximately 2 weeks with Thao Hodge 8. Anticipated | | | Discharge: 2-3 days KWAME BARRIENTOS MD | | | [facility] | | | [place] Department of Orthopaedics & Rehabilitation [address] [place] [address] | | | [facility] Mail Code: OP31 [facility] [address] | | | | | + + + X-RAY FLUOROSCOPY IN OR > 1 HOUR (08/30/2018 5:52 PM) + + + | Narrative | Performed At | + + + | - At the time of the study, no professional interpretation was | | | requested. - | | + + + X-RAY TIBIA & FIBULA 2 VIEWS LT (08/30/2018 5:52 PM) + + + | Narrative | Performed At | + + + | - At the time of the study, no professional interpretation was | | | requested. - | | + + + ANE ETT (08/30/2018 4:24 PM) + + + | Narrative | Performed At | + + + | Mari Sinclair CRNA 08/30/2018 4:49 PM Procedure Reason | | | for Intubation: For surgical procedure, Location Performed: OR , | | | Patient was preoxygenated Mask Ventilation Grade 1 - Ventilated by | | | mask Intubation Blade type: Other , Atraumatic laryngoscopy: | | | Atraumatic Laryngoscopy, Intubation adjuncts: Stylet used , | | | Laryngoscopic view: Grade II, Fiberoptics used: Glidescope , Number | | | of Attempts: 2, Positive for EtCO2: Yes, Breath sounds: Bilateral | | | and equal Prior intubation attempts: Blade type: Frantz , | | | Blade size: 4, Intubation adjuncts: Stylet used, , Laryngoscopic | | | view: Grade III, Fiberoptics used: N/A ETT ETT Size: 7.5 ETT | | | secured with: adhesive tape Depth at Lip: 22 Cm Airway | | | leak: No Narrative Attending: CASEY POON First | | | attempt with mac 4 Arytenoids only visualized. Attempt to pass | | | styletted ett thru cords, they were not open. Glidescope used, | | | grade 2 view. ett passed easily. Sats stable throughout intubation | | | Performed by MARI TURNER | | + + + CBC (HEMOGRAM) ONLY (08/30/2018 5:00 AM)Only the most recent of 2 results within the time period is included. + + + + + | Component | Value | Ref Range | Performed At | + + + + + | WHITE CELL COUNT | 9.42 | 3.50 - 10.80 K/cu mm | [facility] | | | | | SERVICES CORE | + + + + + | RED CELL COUNT | 4.09 (L) | 4.50 - 6.00 M/cu mm | [facility] | | | | | SERVICES, CORE | + + + + + | HEMOGLOBIN | 13.1 (L) | 13.5 - 17.5 g/dL | [facility] | | | | | SERVICES, CORE | + + + + + | HEMATOCRIT | 40.3 (L) | 41.0 - 53.0 % | [facility] | | | | | SERVICES, CORE | + + + + + | MCV | 98.5 | 80.0 - 100.0 fL | [facility] | | | | | SERVICES, CORE | + + + + + | MCHC | 32.5 | 32.0 - 36.0 g/dL | [facility] | | | | | SERVICES, CORE | + + + + + | RDW SD | 50.7 (H) | 35.1 - 46.3 fL | [facility] | | | | | SERVICES, CORE | + + + + + | PLATELET COUNT | 137 (L)Comment: Few | 150 - 400 K/cu mm | [facility] | | | platelet clumps present. | | SERVICES, CORE | | | Macroplatelets present. | | | + + + + + | MPV | 11.5 | 9.7 - 12.3 fL | [facility] | | | | | SERVICES, CORE | + + + + + | NRBC% | 0.0 | 0.0 - 0.3 % | [facility] | | | | | SERVICES, CORE | + + + + + | NRBC# | 0.00 | 0.00 - 0.02 K/cu mm | [facility] | | | | | PHOEBE, [place]AR | + + + + + + + | Specimen | + + | Blood - Blood | + + + + + + + | Performing | Address | City/State/Zipcode | Phone Number | | Organization | | | | + + + + + | [facility] | [address] | [place] [address] | | | [place] | [address] | | | + + + + + BASIC METABOLIC SET (NA, K, CL, TCO2, BUN, CR, GLU, CA) (08/30/2018 5:00 AM)Only the most recent of 2 results within the time period is included. + +---------+ + + | Component | Value | Ref Range | Performed At | + +---------+ + + | GLUCOSE, PLASMA | 110 (H) | 70 - 99 mg/dL | [facility] | | (LAB) | | | SERVICES, CORE | + +---------+ + + | BUN, PLASMA (LAB) | 24 (H) | 6 - 20 mg/dL | [facility] | | | | | SERVICES, CORE | + +---------+ + + | CREATININE PLASMA | 1.27 | 0.70 - 1.30 mg/dL | [facility] | | (LAB) | | | SERVICES, CORE | + +---------+ + + | EGFR - | >60 | >60 mL/min | [facility] | | [facility] | | | SERVICES, CORE | + +---------+ + + | EGFR NON | 55 (L) | >60 mL/min | [facility] | | -[facility] | | | SERVICES, CORE | + +---------+ + + | SODIUM, PLASMA (LAB) | 137 | 136 - 145 mmol/L | [facility] | | | | | SERVICES, CORE | + +---------+ + + | POTASSIUM, PLASMA | 4.1 | 3.4 - 5.0 mmol/L | [facility] | | (LAB) | | | SERVICES, CORE | + +---------+ + + | CHLORIDE, PLASMA | 106 | 97 - 108 mmol/L | [facility] | | (LAB) | | | SERVICES, CORE | + +---------+ + + | TOTAL CO2, PLASMA | 25 | 21 - 32 mmol/L | [facility] | | (LAB) | | | SERVICES, CORE | + +---------+ + + | CALCIUM, PLASMA | 8.1 (L) | 8.6 - 10.2 mg/dL | [facility] | | (LAB) | | | SERVICES, CORE | + +---------+ + + | ANION GAP | 6 | 4 - 11 mmol/L | [facility] | | | | | SERVICES, CORE | + +---------+ + + | POTASSIUM CMNT | No Hemo | | [facility] | | | | | SERVICES, CORE | + +---------+ + + + + | Specimen | + + | Blood - Blood | + + + + + | Narrative | Performed At | + + + | GFR is estimated using the MDRD equation recommended by the | [facility] | | National Kidney Disease Education Program. Estimated GFR | LABORATORY | | Interpretive Information: <60 mL/min/1.73 sq | SERVICES, CORE | | m Chronic Kidney Disease <15 mL/min/1.73 | | | sq m Kidney Failure Estimated GFR greater | | | than 60 mL/min/1.73 sq m is of limited clinical value. The MDRD | | | equation is not valid in the following situations: - Patients under | | | 18 years of age - Severe malnutrition or obesity - Vegetarian diet | | | - Rapidly changing kidney function - Amputees, paraplegics, or other | | | muscle-wasting diseses | | + + + + + + + + | Performing | Address | City/State/Zipcode | Phone Number | | Organization | | | | + + + + + | [facility] | [address] | [place] [address] | | | SERVICES, [place] | [address] | | | + + + + + MAGNESIUM, PLASMA (08/30/2018 5:00 AM) + +-------+ + + | Component | Value | Ref Range | Performed At | + +-------+ + + | MAGNESIUM,PLASMA | 2.5 | 1.6 - 2.6 mg/dL | [facility] | | | | | [facility] | + +-------+ + + + + | Specimen | + + | Blood - Blood | + + + + + + + | Performing | Address | City/State/Zipcode | Phone Number | | Organization | | | | + + + + + | [facility] | [address] | [place] [address] | | | SERVICES, CORE | [address] | | | + + + + + CARDIOLOGY (08/30/2018) + + + | Narrative | Performed At | + + + | | | + + + TRANSTHORACIC ECHOCARDIOGRAM, ADULT (08/29/2018 2:25 PM) + + + + + | Component | Value | Ref Range | Performed At | + + + + + | AOV VMN (AORTIC | 19.5 | | [facility] | | VALVE) | | | CARDIOLOGY | + + + + + | BIPLANE, EF | 58 | | [facility] | | | | | CARDIOLOGY | + + + + + | EJECTION FRACTION | 55 to 60 | | [facility] | | | | | CARDIOLOGY | + + + + + | LA DIMENSION | 3.2 | | [facility] | | | | | CARDIOLOGY | + + + + + | LVIDD | 4.9 | | [facility] | | | | | CARDIOLOGY | + + + + + | MV A VMAX | 0.8 | | [facility] | | | | | CARDIOLOGY | + + + + + | MV E? | 0.1 | | [facility] | | | | | CARDIOLOGY | + + + + + | MV E VMAX | 0.5 | | [facility] | | | | | CARDIOLOGY | + + + + + | MV E/E' (MITRAL | 5.4 | | [facility] | | VALVE) | | | CARDIOLOGY | + + + + + | MITRAL ANNULUS | 9.1 | | [facility] | | MEDIAL E/E" (TISSUE | | | CARDIOLOGY | | DOPPLER) | | | | + + + + + | RVSP | 44 | | [facility] | | | | | CARDIOLOGY | + + + + + | RV TDI S? | 11.0 | | [facility] | | | | | CARDIOLOGY | + + + + + | TR VMAX (TRICUSPID | 3.0 | | [facility] | | VALVE) | | | CARDIOLOGY | + + + + + | EJECTION FRACTION | 57.5 | % | [facility] | | RANGE MEAN VALUE | | | CARDIOLOGY | + + + + + + + + | Narrative | Performed At | + + + | [facility] | [facility] | | [facility] Adult Echocardiography | CARDIOLOGY | | Laboratory [address] [place] [address] | | | [place] [address] Pt Name: | | | EMRE MENENDEZ Study Date/Time 08/29/2018 / 2:25:40 | | | PMMRN: [id number] Most recent | | | prior: -Acc #: [id number] No. previous | | | echos: 0DOB: 1940 77 years Heart Rate: | | | 70 bpmHeight: 70.0 in Blood | | | Pressure: 128/62 mm/HgWeight: 198.0 | | | lb Gender: | | | MBSA: 2.08 m | | | Order ID: [id number] | | | Study Location: 14CSonographer: Marta Haines [facility] AE, PESonographer | | | 2:Referring Provider: Yesenia Ryanalities Performed: 2D, Color | | | flow, Spectral Doppler and Definity contrast.Study Quality: This was a | | | technically difficult study, but image quality improved with echo | | | contrast.Imaging Limitations: There is prominent lung artifact | | | seen.Exam Indication: Bioprosthetic aortic valve; Preoperative | | | EvaluationHistory: 77 y.o. M with PMHx of CAD s/p single vessel bypass | | | and aortic valve replacement, Hypothyroidism, HTN, who presents with | | | a tibial plateau fracture after a skiing accident. We are consulted | | | for preoperative risk stratification. Patient history has been | | | obtained from the EHR Transthoracic Echocardiographic Report | | | + | | | ---------+Final | | | Impressions: | | | | | | | | | | | | | | | | | | 1. The left ventricular size is | | | normal. | | | 2. The LV function is | | | normal. | | | 3. Right ventricular size, thickness | | | and function are normal. 4. The | | | estimated right ventricular systolic pressure is mildly | | | elevated (RVSP = 44.2 | | | mmHg). | | | 5. 25mm Magna | | | Ease BioAVR. There is no valvular or | | | perivalvular regurgitation. Advertising Teacher 3.0m/s, AT | | | < 100ms, PkGr 37, MnGr 22 which are mildly elevated for | | | valve type and compared to previous outside echo. | | | Short acceleration time suggestive of patient | | | prosthesis mismatch but this should be followed up on post | | | hospital | | | admission. | | | 6. There are no prior exams available for comparison but | | | see comments in # | | | 5 | | | | | | + | | | + Description of Findings: Cardiac | | | Rhythm: Normal sinus rhythm.Left Ventricle: The left ventricular size | | | is normal. Visually estimated left ventricular ejection fraction is 55 | | | - 60%. There is no left ventricular hypertrophy. Abnormal | | | (paradoxical) motion consistent with left bundle branch block. The LV | | | diastolic filling pattern is normal. The ejection fraction is 58.0 % | | | as measured by Neves's biplane method. The LV function is normal. | | | Due to poor endocardial definition, ultrasound contrast was used | | | (Definity).Left Ventricular Wall Motion: Left ventricular systolic | | | thickening is normal in all segments.Atria: Left atrial size is | | | normal. Normal right atrium.Right Ventricle: Right ventricular size, | | | thickness and function are normal. The RV TDI s' velocity is | | | 11cm/sec.Aortic Valve: No indication of aortic valve regurgitation. | | | The peak & mean transvalvular gradients are 37.1 mmHg and 21.8 mmHg | | | respectively. The DVI is 0.32. The calculated KEO is 1.33 cm | | | using an LVOT diameter of 2.30 cm (continuity equation). The | | | indexed stroke volume is 34.2 ml/m | | | . The peak aortic velocity was obtained from the apical location. | | | 25mm Magna Ease BioAVR. There is no valvular or perivalvular | | | regurgitation. Advertising Teacher 3.0m/s, AT < 100ms, PkGr 37, MnGr 22 which are | | | mildly elevated for valve type and compared to previous outside echo. | | | Short acceleration time suggestive of patient prosthesis mismatch but | | | this should be followed up on post hospital admission. The peak aortic | | | velocity was obtained from the apical location.Mitral Valve: The | | | mitral valve is structurally normal. Mild mitral annular | | | calcification. Trace mitral valve regurgitation.Tricuspid Valve: The | | | tricuspid valve is structurally normal. Mild tricuspid regurgitation. | | | The tricuspid regurgitant velocity is 3.01 m/s, and with an assumed | | | right atrial pressure of 8 mmHg, the estimated right ventricular | | | systolic pressure is mildly elevated at 44.2 mmHg.Pulmonic Valve: The | | | pulmonic valve is not well visualized. Mild pulmonary valve | | | regurgitation.Aorta: Visualized portions of the ascending aorta and | | | aortic root appear normal.Venous: The inferior vena cava was not well | | | visualized.Pericardium: No pericardial effusion is seen. Additional | | | Findings: There are no prior exams.2D | | | Measurements Doppler Measurements | | | 2D NL Values | | | Aortic MitralLVID(d) 4.89 (3.5-5.7cm) | | | Max Russel 3.05 Peak E 0.54 | | | cm | | | m/s | | | m/sLVID(s) 3.63 Mean grad | | | 21.8 Peak A 0.84 | | | cm | | | mmHg m/sIVS(d) 1.15 (0.6-1.1cm) | | | LVOT Russel 0.97 E/A Ratio 0.65 | | | cm | | | m/sLVPW(d) 1.20 (0.6-1.1cm) LVOT VTI 0.171 TDI | | | (E/e') 5.4 | | | cm mLA A/Ps 2D | | | 3.20 (2.7-3.9cm) LVOT Diam 2.30 MV mn gd | | | cm cmLA vol A/L | | | 27.8 (16-34) LVOT SV 34.2 MR | | | EROindex ml/m | | | indexed ml/m | | | LA vol MOD 54.1 (40-73ml) Tricuspid | | | PulmonicBP ml TR | | | Vmax 3.01 PV Vmax 1.3LA vol MOD 26.0 | | | (16-34) m/s | | | m/sindex ml/m | | | RA Press 8 RVOT | | | VTILVEDV 55.20 | | | mmHgindex ml/m | | | RVSP 44 PV mn | | | gdBiplane EF 58.0 % mmHg | | | Aorta: | | | Index: | | | Ao Sinus 3.00 (2.1-3.5cm) | | | 14.4 | | | cm mm/m | | | Asc | | | Ao 3.90 18.8 | | | (prox) cm | | | mm/m | | | Evaluation of chamber size and geometry is accomplished through the | | | incorporation of linear, volumetric, and indexed values Report | | | electronically signed by: [id number] Bruno Mars MD (08/30/2018, | | | 9:08:12 AM)Fellow(s) participating in diagnosis: Abbe Lizarraga; | | | Final | | + + + + + | Procedure Note | + + | Interface, Cardiology Results - 08/30/2018 9:08 AM [facility] | | [facility] Echocardiography Laboratory [address] [place] [address] | | [place], [place] [address] Pt Name: EMRE Agudelo | | SHON Study Date/Time 08/29/2018 / 2:25:40 PMMRN: [id number] Most | | recent prior: -Acc #: [id number] No. previous echos: 0DOB: 1940 77 | | years Heart Rate: 70 bpmHeight: 70.0 in Blood Pressure: | | 128/62 mm/HgWeight: 198.0 lb Gender: MBSA: 2.08 m | | Order ID: [id number] [facility] | | [facility] AE, PESonographer 2:Referring Provider: Yesenia Morley Performed: | | 2D, Color flow, Spectral Doppler and Definity contrast.Study Quality: This was a | | technically difficult study, but image quality improved with echo contrast.Imaging | | Limitations: There is prominent lung artifact seen.Exam Indication: Bioprosthetic aortic | | valve; Preoperative EvaluationHistory: 77 y.o. M with PMHx of CAD s/p single vessel | | bypass and aortic valve replacement, Hypothyroidism, HTN, who presents with a tibial | | plateau fracture after a skiing accident. We are consulted for preoperative risk | | stratification. Patient history has been obtained from the EHR Transthoracic | | Echocardiographic | | Report+ +Fi | | nal Impressions: | | | | 1. The left ventricular size is | | normal. 2. The LV function is normal. | | 3. Right ventricular size, thickness and function | | are normal. 4. The estimated right ventricular systolic pressure is | | mildly elevated (RVSP = 44.2 mmHg). | | 5. 25mm Magna Ease BioAVR. There is no valvular or perivalvular | | regurgitation. Advertising Teacher 3.0m/s, AT < 100ms, PkGr 37, MnGr 22 which are mildly elevated | | for valve type and compared to previous outside echo. Short acceleration time | | suggestive of patient prosthesis mismatch but this should be followed up on post | | hospital admission. 6. There are no prior exams | | available for comparison but see comments in # 5 | | | | + + | | Description of Findings: Cardiac Rhythm: Normal sinus rhythm.Left Ventricle: The left | | ventricular size is normal. Visually estimated left ventricular ejection fraction is 55 | | - 60%. There is no left ventricular hypertrophy. Abnormal (paradoxical) motion | | consistent with left bundle branch block. The LV diastolic filling pattern is normal. | | The ejection fraction is 58.0 % as measured by Neves's biplane method. The LV function | | is normal. Due to poor endocardial definition, ultrasound contrast was used | | (Definity).Left Ventricular Wall Motion: Left ventricular systolic thickening is normal | | in all segments.Atria: Left atrial size is normal. Normal right atrium.Right Ventricle: | | Right ventricular size, thickness and function are normal. The RV TDI s' velocity is | | 11cm/sec.Aortic Valve: No indication of aortic valve regurgitation. The peak & mean | | transvalvular gradients are 37.1 mmHg and 21.8 mmHg respectively. The DVI is 0.32. The | | calculated KEO is 1.33 cm | | using an LVOT diameter of 2.30 cm (continuity equation). The indexed stroke volume is | | 34.2 ml/m | | . The peak aortic velocity was obtained from the apical location. 25mm Magna Ease | | BioAVR. There is no valvular or perivalvular regurgitation. Advertising Teacher 3.0m/s, AT < 100ms, PkGr | | 37, MnGr 22 which are mildly elevated for valve type and compared to previous outside | | echo. Short acceleration time suggestive of patient prosthesis mismatch but this should | | be followed up on post hospital admission. The peak aortic velocity was obtained from | | the apical location.Mitral Valve: The mitral valve is structurally normal. Mild mitral | | annular calcification. Trace mitral valve regurgitation.Tricuspid Valve: The tricuspid | | valve is structurally normal. Mild tricuspid regurgitation. The tricuspid regurgitant | | velocity is 3.01 m/s, and with an assumed right atrial pressure of 8 mmHg, the estimated | | right ventricular systolic pressure is mildly elevated at 44.2 mmHg.Pulmonic Valve: The | | pulmonic valve is not well visualized. Mild pulmonary valve regurgitation.Aorta: | | Visualized portions of the ascending aorta and aortic root appear normal.Venous: The | | inferior vena cava was not well visualized.Pericardium: No pericardial effusion is seen. | | Additional Findings: There are no prior exams.2D Measurements Doppler | | Measurements 2D NL Values Aortic MitralLVID(d) 4.89 | | (3.5-5.7cm) Max Russel 3.05 Peak E 0.54 cm m/s | | m/sLVID(s) 3.63 Mean grad 21.8 Peak A 0.84 | | cm mmHg m/sIVS(d) 1.15 (0.6-1.1cm) LVOT | | Russel 0.97 E/A Ratio 0.65 cm m/sLVPW(d) 1.20 | | (0.6-1.1cm) LVOT VTI 0.171 TDI (E/e') 5.4 cm mLA | | A/Ps 2D 3.20 (2.7-3.9cm) LVOT Diam 2.30 MV mn gd cm | | cmLA vol A/L 27.8 (16-34) LVOT SV 34.2 MR EROindex ml/m | | indexed ml/m | | LA vol MOD 54.1 (40-73ml) Tricuspid PulmonicBP ml TR | | Vmax 3.01 PV Vmax 1.3LA vol MOD 26.0 (16-34) m/s | | m/sindex ml/m | | RA Press 8 RVOT VTILVEDV 55.20 | | mmHgindex ml/m | | RVSP 44 PV mn gdBiplane EF 58.0 % mmHg | | Aorta: Index: | | Ao Sinus 3.00 (2.1-3.5cm) 14.4 cm | | mm/m | | Asc Ao 3.90 18.8 | | (prox) cm mm/m | | Evaluation of chamber size and geometry is accomplished through the incorporation of | | linear, volumetric, and indexed values Report electronically signed by: [id number] | | Bruno Mars MD (08/30/2018, 9:08:12 AM)Fellow(s) participating in diagnosis: Abbe | | Elham; Final | | | |Additional Findings: There are no prior exams. | |2D Measurements Doppler Measurements | | | | 2D NL Values Aortic Mitral | |LVID(d) 4.89 (3.5-5.7cm) Max Russel 3.05 Peak E 0.54 | | cm m/s m/s | |LVID(s) 3.63 Mean grad 21.8 Peak A 0.84 | | cm mmHg m/s | |IVS(d) 1.15 (0.6-1.1cm) LVOT Russel 0.97 E/A Ratio 0.65 | | cm m/s | |LVPW(d) 1.20 (0.6-1.1cm) LVOT VTI 0.171 TDI (E/e') 5.4 | | cm m | |LA A/Ps 2D 3.20 (2.7-3.9cm) LVOT Diam 2.30 MV mn gd | | cm cm | |LA vol A/L 27.8 (16-34) LVOT SV 34.2 MR ERO | |index ml/m indexed ml/m | |LA vol MOD 54.1 (40-73ml) Tricuspid Pulmonic | |BP ml TR Vmax 3.01 PV Vmax 1.3 | |LA vol MOD 26.0 (16-34) m/s m/s | |index ml/m RA Press 8 RVOT VTI | |LVEDV 55.20 mmHg | |index ml/m RVSP 44 PV mn gd | |Biplane EF 58.0 % mmHg | | | | Aorta: Index: | | Ao Sinus 3.00 (2.1-3.5cm) 14.4 | | cm mm/m | | Asc Ao 3.90 18.8 | | (prox) cm mm/m | |Evaluation of chamber size and geometry is accomplished through the incorporation of | |linear, volumetric, and indexed values | | | |Report electronically signed by: [id number] Bruno Mars MD (08/30/2018, 9:08:12 AM) | |Fellow(s) participating in diagnosis: Abbe Lizarraga; | | | | | | | | Final | + + + + + + + | Performing | Address | City/State/Zipcode | Phone Number | | Organization | | | | + + + + + | [facility] | [address] | [place], [place] | | | CARDIOLOGY | [address] | [address] | | + + + + + X-RAY CHEST 1 VIEW (08/29/2018 7:30 AM) + + + | Narrative | Performed At | + + + | EXAM: CHEST 1 VIEW HISTORY: preop COMPARISON: None. | [facility] | | FINDINGS: Midline sternal closure devices and a valve prosthesis | RADIOLOGY VOICE | | are noted. The cardiomediastinal contour is normal. The lungs are | RECOGNITION 2 | | clear. There is no pleural effusion or pneumothorax. There is no | | | pulmonary edema. The bones are intact. IMPRESSION: Clear | | | lungs. I have personally reviewed the images and, if necessary, | | | edited the report. I agree with the report as now presented. | | | Final signature: Sharad Saxena MD 08/29/2018 12:35 PM | | | Preliminary: Sharad Saxena MD Dictation initiated: Sharad Saxena MD 08/29/2018 12:34 PM | | + + + + + | Procedure Note | + + | Service Account, [employer] Res In Interface - 08/29/2018 12:36 PM PST EXAM: CHEST 1 | | VIEW HISTORY: preop COMPARISON: None. FINDINGS: Midline sternal closure devices and a | | valve prosthesis are noted. The cardiomediastinal contour is normal. The lungs are | | clear. There is no pleural effusion or pneumothorax. There is no pulmonary edema. The | | bones are intact. IMPRESSION: Clear lungs. I have personally reviewed the images and, if | | necessary, edited the report. I agree with the report as now presented. Final | | signature: Sharad Saxena MD 08/29/2018 12:35 PM Preliminary: Sharad Saxena MD | | Dictation initiated: Sharad Saxena MD 08/29/2018 12:34 PM | |Midline sternal closure devices and a valve prosthesis are noted. The cardiomediastinal con tour is normal. The lungs are clear. There is no pleural effusion or pneumothorax. There is no pulmonary edema. The bones are intact. | | | |IMPRESSION: | | | |Clear lungs. | | | |I have personally reviewed the images and, if necessary, edited the report. I agree with e report as now presented. | | | |Final signature: Sharad Saxena MD 08/29/2018 12:35 PM | |Preliminary: Sharad Saxena MD | |Dictation initiated: Sharad Saxena MD 08/29/2018 12:34 PM | + + + +---------+ + + | Performing | Address | City/State/Zipcode | Phone Number | | Organization | | | | + +---------+ + + | [facility] | | | | | VOICE RECOGNITION 2 | | | | + +---------+ + + TROPONIN I, PLASMA (08/29/2018 3:11 AM)Only the most recent of 2 results within the time bev duarte is included. + +-------+ + + | Component | Value | Ref Range | Performed At | + +-------+ + + | TROPONIN I | 0.27 | <0.80 ng/mL | [facility] | | | | | SERVICES, CORE | + +-------+ + + + + | Specimen | + + | Blood - Blood | + + + + + + + | Performing | Address | City/State/Zipcode | Phone Number | | Organization | | | | + + + + + | [facility] | [address] | [place] [address] | | | [place] | [address] | | | + + + + + 12 LEAD ECG (08/28/2018 11:38 PM) + + + + + | Component | Value | Ref Range | Performed At | + + + + + | VENTRICULAR RATE | 68 | bpm | [facility] | | | | | CARDIOLOGY | + + + + + | ATRIAL RATE | 68 | ms | [facility] | | | | | CARDIOLOGY | + + + + + | P-R INTERVAL | 118 | ms | [facility] | | | | | CARDIOLOGY | + + + + + | P AXIS | 37 | deg | [facility] | | | | | CARDIOLOGY | + + + + + | QRS DURATION | 122 | ms | [facility] | | | | | CARDIOLOGY | + + + + + | QT | 403 | ms | [facility] | | | | | CARDIOLOGY | + + + + + | QTCB | 429 | ms | [facility] | | | | | CARDIOLOGY | + + + + + | R AXIS | -89 | deg | [facility] | | | | | CARDIOLOGY | + + + + + | T AXIS | 108 | deg | [facility] | | | | | CARDIOLOGY | + + + + + | ECG IMPRESSION | Sinus rhythm | | [facility] | | | | | CARDIOLOGY | + + + + + | ECG IMPRESSION | Left bundle branch | | [facility] | | | block- ABNORMAL ECG - | | CARDIOLOGY | + + + + + | ECG IMPRESSION | Electronically signed | | [facility] | | | by: MIRYAM TAFOYA | | CARDIOLOGY | | | 08-29-2018 08:48:52 | | | + + + + + + + + | Narrative | Performed At | + + + | | | + + + + + + + + | Performing | Address | City/State/Zipcode | Phone Number | | Organization | | | | + + + + + | [facility] | [address] | [place], [place] | | | CARDIOLOGY | [address] | [address] | | + + + + + CT LOWER EXTREMITY LEFT WO CONTRAST (08/28/2018 9:59 PM) + + + | Narrative | Performed At | + + + | EXAM: CT EXT LWR LEFT WO CONTRAST HISTORY: tibial plateau | [facility] | | fracture COMPARISON: None. TECHNIQUE: Non-contrast axial CT | RADIOLOGY VOICE | | images of the left knee were acquired. Sagittal and coronal | RECOGNITION 2 | | reformations were completed. No IV contrast was administered. | | | FINDINGS: There is a comminuted tibial plateau fracture with a | | | sagittally oriented fracture margin bisecting the tibial condyles, | | | extending through the tibial spines with only trace articular surface | | | incongruity. There is comminution and minimal displacement at the | | | anterior lip of the tibial plateau with 3 mm articular surface | | | incongruity. Minimal displacement of the proximal diaphyseal fracture | | | fragments is noted. A comminuted, impacted and mildly displaced | | | fibular head-neck fracture is observed. No additional fracture or | | | focal destruction is identified. The joint spaces are preserved with | | | minimal spurring. There is a moderate lipohemarthrosis. Diffuse soft | | | tissue edema is noted. There are vascular calcifications. | | | IMPRESSION: Comminuted, minimally displaced left tibial plateau | | | fracture as described. Comminuted, impacted and mildly displaced | | | fibular head-neck fracture. Moderate lipohemarthrosis. I have | | | personally reviewed the images and, if necessary, edited the report. I | | | agree with the report as now presented. Final signature: Lillian | | | Sagrario Hardwick MD 08/29/2018 10:34 AM Preliminary: Lillian Hardwick, | | | Dictation initiated: Lillian Hardwick MD 08/29/2018 | | | 10:30 AM | | + + + + + | Procedure Note | + + | Service Account, Radiant Res In Interface - 08/29/2018 10:36 AM PST EXAM: CT EXT LWR | | LEFT WO CONTRAST HISTORY: tibial plateau fracture COMPARISON: None. TECHNIQUE: | | Non-contrast axial CT images of the left knee were acquired. Sagittal and coronal | | reformations were completed. No IV contrast was administered. FINDINGS: There is a | | comminuted tibial plateau fracture with a sagittally oriented fracture margin bisecting | | the tibial condyles, extending through the tibial spines with only trace articular | | surface incongruity. There is comminution and minimal displacement at the anterior lip | | of the tibial plateau with 3 mm articular surface incongruity. Minimal displacement of | | the proximal diaphyseal fracture fragments is noted. A comminuted, impacted and mildly | | displaced fibular head-neck fracture is observed. No additional fracture or focal | | destruction is identified. The joint spaces are preserved with minimal spurring. There | | is a moderate lipohemarthrosis. Diffuse soft tissue edema is noted. There are vascular | | calcifications. IMPRESSION: Comminuted, minimally displaced left tibial plateau fracture | | as described. Comminuted, impacted and mildly displaced fibular head-neck fracture. | | Moderate lipohemarthrosis. I have personally reviewed the images and, if necessary, | | edited the report. I agree with the report as now presented. Final signature: Lillian Zabala | | MD [place] 08/29/2018 10:34 AM Preliminary: Lillian Hardwick MD Dictation | | initiated: Lillian Hardwick MD 08/29/2018 10:30 AM | | | |Comminuted, impacted and mildly displaced fibular head-neck fracture. | | | |Moderate lipohemarthrosis. | | | |I have personally reviewed the images and, if necessary, edited the report. I agree with th e report as now presented. | | | |Final signature: Lillian Hardwick MD 08/29/2018 10:34 AM | |Preliminary: Lillian Hardwick MD | |Dictation initiated: Lillian Hardwick MD 08/29/2018 10:30 AM | + + + +---------+ + + | Performing | Address | City/State/Zipcode | Phone Number | | Organization | | | | + +---------+ + + | [facility] | | | | | VOICE RECOGNITION 2 | | | | + +---------+ + + RAINBOW HOLD TUBE - RED TOP (08/28/2018 8:25 PM) + + | Specimen | + + | Blood | + + + + + + + | Performing | Address | City/State/Zipcode | Phone Number | | Organization | | | | + + + + + | [facility] | [address] | [place] [address] | | | SERVICES, [place] | [address] | | | + + + + + RAINBOW HOLD TUBE - PURPLE TOP (08/28/2018 8:25 PM) + + | Specimen | + + | Blood | + + + + + + + | Performing | Address | City/State/Zipcode | Phone Number | | Organization | | | | + + + + + | [facility] | [address] | [place] [address] | | | SERVICES, CORE | [address] | | | + + + + + RAINBOW HOLD TUBE - GREEN TOP (08/28/2018 8:25 PM) + + | Specimen | + + | Blood | + + + + + + + | Performing | Address | City/State/Zipcode | Phone Number | | Organization | | | | + + + + + | [facility] | [address] | [place] [address] | | | SERVICES, CORE | [address] | | | + + + + + RAINBOW HOLD TUBE - BLUE TOP (08/28/2018 8:25 PM) + + | Specimen | + + | Blood | + + + + + + + | Performing | Address | City/State/Zipcode | Phone Number | | Organization | | | | + + + + + | [facility] | [address] | [place] [address] | | | SERVICES, CORE | [address] | | | + + + + + BLOOD BANK HOLD TUBE - DON T PROCESS (08/28/2018 8:25 PM) + + + + + | Component | Value | Ref Range | Performed At | + + + + + | SPECIMEN COLLECTED, | Sample received with | | [facility] | | HELD | adeq label/volume to | | SERVICES, | | | process | | TRANSFUSION | | | | | MEDICINE | + + + + + + + | Specimen | + + | Blood - Blood | + + + + + + + | Performing | Address | City/State/Zipcode | Phone Number | | Organization | | | | + + + + + | [facility] | [address] | [place] [address] | | | SERVICES, | [address] | | | | TRANSFUSION MEDICINE | | | | + + + + + CONFIRMATORY ABO/RH (08/28/2018 8:25 PM) + + + + + | Component | Value | Ref Range | Performed At | + + + + + | ABO Group | O | | [facility] | | | | | SERVICES, | | | | | TRANSFUSION | | | | | MEDICINE | + + + + + | Rh Type | Positive | | [facility] | | | | | SERVICES, | | | | | TRANSFUSION | | | | | MEDICINE | + + + + + + + | Specimen | + + | Blood - Blood | + + + + + + + | Performing | Address | City/State/Zipcode | Phone Number | | Organization | | | | + + + + + | [facility] | [address] | [place] [address] | | | SERVICES, | [address] | | | | TRANSFUSION MEDICINE | | | | + + + + + COAGULOPATHY PANEL (INR,APTT,FIBRINOGEN) (08/28/2018 8:25 PM) + +-------+ + + | Component | Value | Ref Range | Performed At | + +-------+ + + | INR | 1.00 | 0.90 - 1.20 INR | [facility] | | | | | SERVICES, CORE | + +-------+ + + | APTT | 28.9 | 26.0 - 36.0 seconds | [facility] | | | | | SERVICES, CORE | + +-------+ + + | FIBRINOGEN LEVEL | 346 | 150 - 450 mg/dL | [facility] | | | | | SERVICES, CORE | + +-------+ + + + + | Specimen | + + | Blood - Blood | + + + + + | Narrative | Performed At | + + + | INR Therapeutic ranges for full anticoagulation: INR for | [facility] | | Venous Thromboembolism (2.0 - 3.0) INR | LABORATORY | | INR for most patients with mech. valves (2.5 - 3.5) INR | SERVICES, CORE | | APTT values for monitoring heparin therapy may be affected by | | | specimens processed >1 hour after collection. APTT Therapeutic | | | Range: (75 - 120) sec | | | Heparin levels of 0.35 - 0.7 U/mL | | + + + + + + + + | Performing | Address | City/State/Zipcode | Phone Number | | Organization | | | | + + + + + | [facility] | [address] | [place] [address] | | | SERVICES, CORE | [address] | | | + + + + + ANTIBODY SCREEN (08/28/2018 8:25 PM) + + + + + | Component | Value | Ref Range | Performed At | + + + + + | Antibody Screen | Negative | | [facility] | | | | | SERVICES, | | | | | TRANSFUSION | | | | | MEDICINE | + + + + + + + | Specimen | + + | Blood - Blood | + + + + + + + | Performing | Address | City/State/Zipcode | Phone Number | | Organization | | | | + + + + + | [facility] | [address] | [place] [address] | | | SERVICES, | [address] | | | | TRANSFUSION MEDICINE | | | | + + + + + ABO & RH TYPE (08/28/2018 8:25 PM) + + + + + | Component | Value | Ref Range | Performed At | + + + + + | ABO Group | O | | [facility] | | | | | SERVICES, | | | | | TRANSFUSION | | | | | MEDICINE | + + + + + | Rh Type | Positive | | [facility] | | | | | SERVICES, | | | | | TRANSFUSION | | | | | MEDICINE | + + + + + + + | Specimen | + + | Blood - Blood | + + + + + + + | Performing | Address | City/State/Zipcode | Phone Number | | Organization | | | | + + + + + | [facility] | [address] | [place] [address] | | | SERVICES, | [address] | | | | TRANSFUSION MEDICINE | | | | + + + + + from Last 3 Months Insurance + +--------+ +--------+ + + | Payer | Benefi | Subscriber | Type | Phone | Address | | | t Plan | ID | | | | | | / | | | | | | | Group | | | | | + +--------+ +--------+ + + | MEDICARE | MEDICA | xxxxxxxxxxx | Medica | +- | [address] | | | RE A & | | re | [phone] | [place] [address] | | | B | | | | | + +--------+ +--------+ + + | [employer] | MUTUAL | [id number] | Indankush | [phone] | [employer] | | MEDICARE SUPPL | OF | | ity | [address] | | | [place] | | | | [id number] | | | MEDICA | | | | | | | RE | | | | | | | SUPPL | | | | | + +--------+ +--------+ + + + +--------+ +--------+ + + | Guarantor Name | Accoun | Relation to | Date | Phone | Billing Address | | | t Type | Patient | of | | | | | | | | | | + +--------+ +--------+ + + | EMRE MENENDEZ | Person | Self [birth year] | Home: | [address] | | | al/Fam | | 1941 | [phone] | [place] [address] | | | [place] | | | [phone] | | + +--------+ +--------+ + +
--- OUTSIDE RECORDS SUMMARY | ~2018-10-12 | XMS | Clinical Summary ---
Demographics + + + | Address | [address] | | | [place] [address] | + + + | Home Phone | | + + + | Preferred Language | Unknown | + + + | Marital Status | | + + + | Jew Affiliation | 1028 | + + + | Race | Unknown | + + + | Ethnic Group | Unknown | + + + Author + + + | Author | [email or web address] | + + + | Organization | [email or web address] | + + + | Address | Unknown | + + + | Phone | Unavailable | + + + Support + + + + + | Name | Relationship | Address | Phone | + + + + + | Demi Davis I | ECON | [address] | | | | [place] | | | | | [address] | | + + + + + | Héctor Francois | ECON | Unknown | | + + + + + Care Team Providers + +------+ + | Care Radio News Anchor Name | Role | Phone | + +------+ + | Ilia Villegas MD | PP | | + +------+ + Allergies + + + + + + | Active Allergy | Reactions | Severity | Noted | Comments | | | | | Date | | + + + + + + | Carvedilol | Hives | High | 09/03/19 | | | | | | 16 | | + + + + + + | Rosuvastatin | Hives | High | 05/11/20 | Hives and itching | | | | | 14 | -patient take | | | | | | pravastatin at home | + + + + + + | Atorvastatin | Hives | High | 05/11/20 | Patient takes | | | | | 14 | pravastatin at home | + + + + + + | Lisinopril | Hives | High | | | + + + + + + | Metoprolol | Rash | Medium | 09/26/19 | | | | | | 16 | | + + + + + + Current Medications + + +--------+---------+------+------+-------+ | Prescription | Sig. | Disp. | Refills | Star | End | Statu | | | | | | t | Date | s | | | | | | Date | | | + + +--------+---------+------+------+-------+ | Multiple | Take by mouth | | | | | Activ | | Vitamins-Minerals | daily. | | | | | e | | (CENTRUM SILVER | | | | | | | | ADULT 50+) TABS | | | | | | | + + +--------+---------+------+------+-------+ | acyclovir | Take 200 mg by mouth | | | | | Activ | | (ZOVIRAX) 200 MG | as needed. Cap 5 | | | | | e | | capsule | times daily for 10 | | | | | | | | days PRN | | | | | | + + +--------+---------+------+------+-------+ | fluticasone | 1 spray by Each Nare | 16 g | 0 | 03/0 | | Activ | | (FLONASE) 50 MCG/ACT | route daily as | | | 5/20 | | e | | nasal | needed for Rhinitis. | | | 16 | | | + + +--------+---------+------+------+-------+ | pravastatin | Take 1 tablet by | 30 | 11 | 03/2 | | Activ | | (PRAVACHOL) 40 MG | mouth nightly. | tablet | | /20 | | e | | tablet | | | | 17 | | | + + +--------+---------+------+------+-------+ | triamcinolone | Apply topically as | | | | | Activ | | (KENALOG) 0.1 % | needed. | | | | | e | | cream | | | | | | | + + +--------+---------+------+------+-------+ | amoxicillin | Take 500 mg by mouth | | | | | Activ | | (AMOXIL) 500 MG | as needed. | | | | | e | | capsule | | | | | | | + + +--------+---------+------+------+-------+ | levothyroxine | Take 25 mcg by mouth | | | | | Activ | | (SYNTHROID) 25 MCG | every morning | | | | | e | | tablet | before breakfast. | | | | | | + + +--------+---------+------+------+-------+ | aspirin 81 MG | Take 81 mg by mouth | | | | | Activ | | tablet | daily. | | | | | e | + + +--------+---------+------+------+-------+ | losartan (COZAAR) | TAKE 1 TABLET BY | 90 | 1 | 02/0 | | Activ | | 100 MG tablet | MOUTH ONCE DAILY | tablet | | 4/20 | | e | | | | | | 19 | | | + + +--------+---------+------+------+-------+ | bisoprolol | Take 1 tablet by | 90 | 3 | 02/0 | 02/0 | Activ | | (ZEBETA) 5 MG tablet | mouth daily. | tablet | | 6/20 | 6/20 | e | | | | | | 19 | 20 | | + + +--------+---------+------+------+-------+ Active Problems + + + | Problem | Noted Date | + + + | S/P aortic valve replacement | 10/01/2016 | + + + | S/P CABG x 1 | 09/06/2015 | + + + | CAD (coronary artery disease) | 05/11/2014 | + + + + + | Last Assessment & Plan: 2V-CAD, Hx PCI/stent, Hx CABG/AVR, | | LVEF 55-60%. 75yo WM, continues to recover from his open | | heart procedure. Minimal incisional discomfort, incision healed | | nicely. No edema. He continues to walk on a daily basis, | | denying any anginal type chest discomfort, no significant | | shortness of breath, unaware of any palpitations. His recent | | echocardiogram shows a stable bioprosthetic aortic valve with no | | aortic insufficiency, minimal gradient. Ejection fraction is low | | normal. Tolerating medications. No changes in therapy. | | Endocarditis prophylaxis reenforced.Hx CAB09/04/2015, CABG*1/AVR | | (free JOYCE to D1, #25 Magna-Ease).Hx PCI/stent: 02/27/2012, LAD | | (3.5*8mm, 3.0*15mm Promus VIN's), D1 POBA.Hx Pacemaker/ICD: | | noLast Cath, 08/09/2015: RHC: RA 3mmHg, RV 29/3, PA 31/11, PCWP 9 | | LHC: systemic 148/58, LVEDP 20, | | trans-Ao 26mmHg, CO/CI (Tami: | | 5.1/2.5; Th: 5.5/2.6), KEO (F/Th): 1.1/1.2cm2 | | Cor: left main OK, mid-LAD stent patent, 80% osteal | | D1 (pinched by stent), LCx OK, 20-40% prox-RCA | | LVEF 45-50%, global hypokinesis, no segmental | | WMA.Last Echo, 12/10/2015 ([facility]): bio-AVR, stable, no AI, | | peak/mean gradients 14/9mmHg, mild MR, mild TR, trace PI, LVEDd | | 60mm, LVEF 55-60%, mild LAE, est systolic PAP 33-38mmHg.Last | | stress test, 06/20/2015: 8:56min Ephraim, (-) chest pain, ECG (-), | | frequent PAC's, PAT, PVC's, no ischemia or infarction, however, | | LV enlarged with global hypokinesis, LVEF 37%.ECG, 09/17/2015: | | sinus rhythm (96bpm), PAC, LAFB, PRWP, IVCD, non-spec ST-T | | changes. | + + + + + | Carotid stenosis | 05/11/2014 | + + + + + | Last Assessment & Plan: Carotid stenosis, magdalena. Hx Right CEA | | 2005. Denies any new visual disturbances, dysarthria, dysphasia, | | lateralizing signs or symptoms.Carotid US, 07/24/2015: mild | | disease, magdalena. | + + + + + | Mixed hyperlipidemia | 05/11/2014 | + + + + + | Last Assessment & Plan: Hyperlipidemia, continue current meds | | at current dose (pravastatin). Labs anticipated. | + + Resolved Problems + + + + | Problem | Noted | Resolved | | | Date | Date | + + + + | (aortic stenosis) | 05/11/20 | | | | 14 | 7 | + + + + + + | Last Assessment & Plan: /AI. AVR, 09/04/2015, CABG*1/AVR | | (free JOYCE to D1, #25 Magna-Ease). Endocarditis prophylaxis | | reenforced.Last Echo, 12/10/2015 ([facility]): bio-AVR, stable, | | no AI, peak/mean gradients 14/9mmHg, mild MR, mild TR, trace PI, | | LVEDd 60mm, LVEF 55-60%, mild LAE, est systolic PAP 33-38mmHg. | + + Encounters +--------+--------+ + + + | Date | Type | Specialty | Care Team | Description | +--------+--------+ + + + | 08/11/ | Refill | | Nyla Forman | Medication Refill | | 2018 | | | ADEOLA Kee | | +--------+--------+ + + + | 08/08/ | Refill | | Gloria Chavez, | Medication Refill | | 2018 | | | MD | | +--------+--------+ + + + from Last 3 Months Family History + + +------+ + | Medical History | Relation | Name | Comments | + + +------+ + | Heart disease | Mother | | | + + +------+ + | High cholesterol | Mother | | | + + +------+ + | Hypertension | Mother | | | + + +------+ + + +------+ + + | Relation | Name | Status | Comments | + +------+ + + | Father | | | Lupus | | | | (Age | | | | | 51) | | + +------+ + + | Mother | | | heart disease,DMII,aortic stenosis | | | | (Age | | | | | 89) | | + +------+ + + Social History + + + +--------+ + | Tobacco Use | Types | Packs/Day | Years | Date | | | | | Used | | + + + +--------+ + | Former Smoker | Cigarettes | 1 | 25 | Quit: 07/06/1981 | + + + +--------+ + + +---+---+---+ | Smokeless Tobacco: | | | | | Former User | | | | + +---+---+---+ + + | Comments: quit 35 years ago | + + + + +---------+ + | Alcohol Use | Drinks/We | oz/Week | Comments | | | ek | | | + + +---------+ + | Yes | 0 | 0.0 | OCC | | | Standard | | | | | drinks or | | | | | | | | | | equivalen | | | | | t | | | + + +---------+ + + + + | Sex Assigned at | Date Recorded | | | | + + + | Not on file | | + + + Last Filed Vital Signs + + + + | Vital Sign | Reading | Time Taken | + + + + | Blood Pressure | 132/68 | 01/11/2018 12:56 PM PDT | + + + + | Pulse | 85 | 01/11/2018 12:56 PM PDT | + + + + | Temperature | 37 C (98.6 F) | 09/26/2015 10:43 AM PDT | + + + + | Respiratory Rate | 16 | 01/02/2016 10:29 AM PDT | + + + + | Oxygen Saturation | 94% | 01/11/2018 12:56 PM PDT | + + + + | Inhaled Oxygen | - | - | | Concentration | | | + + + + | Weight | 89.5 kg (197 lb 4.8 | 01/11/2018 12:56 PM PDT | | | oz) | | + + + + | Height | 175.3 cm (5' 9") | 01/11/2018 12:56 PM PDT | + + + + | Body Mass Index | 29.14 | 01/11/2018 12:56 PM PDT | + + + + Plan of Treatment +--------+---------+ + + + | Date | Type | Specialty | Care Team | Description | +--------+---------+ + + + | 01/19/ | Office | | Gloria Chavez, | | | 2019 | Visit | | MD Valentino Cortez | | | | | | Dr [address], | | | | | | [place] [address] | | | | | | [phone] | | | | | | | | +--------+---------+ + + + + + + + + | Health Maintenance | Due Date | Last Done | Comments | + + + + + | Vaccine: | | | | | Dtap/Tdap/Td (1 - | 9 | | | | Tdap) | | | | + + + + + | Vaccine: Zoster (1 | | | | | of 2) | 0 | | | + + + + + | Vaccine: | | | | | Pneumococcal 65+ | 5 | | | | Low/Medium Risk (1 | | | | | of 2 - PCV13) | | | | + + + + + | Vaccine: Influenza | | | | | (Season Ended) | 9 | | | + + + + + Implants + +------+-------+ +--------+--------+--------+ | Implanted | Type | Area | Manufacture | Device | Expira | Model | | | | | r | | tion | / | | | | | | Identi | Date | Serial | | | | | | fier | | / Lot | + +------+-------+ +--------+--------+--------+ | Valve Aort Mgnaes Pericard 25 | | N/A: | MATIAS | | 07/12/ | [id number] | | - [id number]: Qty: 1 | | Heart | LIFESCIENCE | | 2020 | [id number] | | on 09/04/2015 by Rhona | | | Renae POWELL - | | | /[id number] | | MD Daniel | | | EDLS | | | 86 / | + +------+-------+ +--------+--------+--------+ | Plate Strnl Acute [id number] | | N/A: | ACUTE | | 10/04/ | [id number] | | SnaImplanted: Qty: 1 on | | Heart | INNOVATIONS | | 2016 | 4 / / | | 09/04/2015 by Rhona | | | ANDRE - YOLIS | | | | | MD Daniel | | | | | | | + +------+-------+ +--------+--------+--------+ Results Not on filefrom Last 3 Months Insurance + +--------+ +------+-------+ + | Payer | Benefi | Subscriber | Type | Phone | Address | | | t Plan | ID | | | | | | / | | | | | | | Group | | | | | + +--------+ +------+-------+ + | MEDICARE | MEDICA | [id number] | | | [address] | | | RE | | | | [place] [address] | | | IP-OP | | | | | + +--------+ +------+-------+ + | [employer] | MUTUAL | [id number] | | | | | | OF | | | | | | | [place] | | | | | + +--------+ +------+-------+ + + +--------+ +--------+ + + | Guarantor Name | Accoun | Relation to | Date | Phone | Billing Address | | | t Type | Patient | of | | | | | | | | | | + +--------+ +--------+ + + | EMRE DAVIS | Person | Self | [birth year] | Home: | [address] | | [address] | | 1941 | [phone] | [place] | | | [place] | | | [address] | [address] | + +--------+ +--------+ + +
--- OUTSIDE RECORDS SUMMARY | ~2018-10-12 | XMS | Encounter Summary ---
Demographics + + + | Address | [address] | | | [place] [address] | + + + | Home Phone | | + + + | Preferred Language | Unknown | + + + | Marital Status | | + + + | Hinduism Affiliation | LUT | + + + | Race | White | + + + | Ethnic Group | Not or | + + + Author + + + | Author | [facility] | + + + | Organization | [facility] | + + + | Address | Unknown | + + + | Phone | Unavailable | + + + Support + + + + + | Name | Relationship | Address | Phone | + + + + + | STANTNO DAVIS | ECON | [place] | | + + + + + Care Team Providers + +------+ + | Care Massage Operator Name | Role | Phone | + +------+ + | Ilia Villegas MD | PCP | | + +------+ + Encounter Details +--------+--------+ + + + | Date | Type | Department | Care Team | Description | +--------+--------+ + + + | 08/28/ | Intake | Transfer Center | | N/A | | 2019 | | [address] | | | | | | [place], | | | | | | [place] [address] | | | +--------+--------+ + + + Social History + +-------+ +--------+ [...] on file | | + + + as of this encounter Plan of Treatment +--------+---------+ + + + | Date | Type | Specialty | Care Team | Description | +--------+---------+ + + + | 10/19/ | Office | Orthopedics | Richard Gonzalez, | | | 2018 | Visit | | [address] | | | | | | [address] | | | | | | [place], [place] | | | | | | [address] | | | | | | [phone] | | | | | | | | +--------+---------+ + + + as of this encounter Visit Diagnoses Not on filein this encounter"
--- OUTSIDE RECORDS SUMMARY | ~2018-10-12 | XMS | Encounter Summary ---
Demographics + + + | Address | [address] | | | [place] [address] | + + + | Home Phone | | + + + | Preferred Language | Unknown | + + + | Marital Status | | + + + | Latter-Day Affiliation | LUT | + + + | Race | White | + + + | Ethnic Group | Not or | + + + Author + + + | Author | [facility] | + + + | Organization | [facility] | + + + | Address | Unknown | + + + | Phone | Unavailable | + + + Support + + + + + | Name | Relationship | Address | Phone | + + + + + | STANTON DAVIS | ECON | [place] | | + + + + + Care Team Providers + +------+ + | Care Instruction Librarian Name | Role | Phone | + +------+ + | Ilia Villegas MD | PCP | | + +------+ + Encounter Details +--------+ + + + + | Date | Type | Department | Care Team | Description | +--------+ + + + + | 08/30/ | Procedure | [facility]A [facility] | | | | 2019 | Pass | [facility] | | | | | | Admitting Desk | | | | | | Located on the 9 | | | | | | floor [address] [facility] | | | | | | [facility] | | | | | | [place], [place] | | | | | | [address] | | | +--------+ + + + + Social History + +-------+ [...] [address] | | | | | | [place], [place] | | | | | | [address] | | | | | | [phone] | | | | | | | | +--------+---------+ + + + as of this encounter Visit Diagnoses Not on filein this encounter"
--- OUTSIDE RECORDS SUMMARY | ~2018-10-12 | XMS | Encounter Summary ---
Demographics + + + | Address | [address] | | | [place] [address] | + + + | Home Phone | | + + + | Preferred Language | Unknown | + + + | Marital Status | | + + + | Sabianism Affiliation | LUT | + + + | Race | White | + + + | Ethnic Group | Not or | + + + Author + + + | Author | [facility] | + + + | Organization | [facility] | + + + | Address | Unknown | + + + | Phone | Unavailable | + + + Support + + + + + | Name | Relationship | Address | Phone | + + + + + | STANTON MENENDEZ | ECON | [place] | | + + + + + Care Team Providers + +------+ + | Care Oil Well Gun Perforator Operator Name | Role | Phone | + +------+ + | Ilia Villegas MD | PCP | | + +------+ + Reason for Visit + + + | Reason | Comments | + + + | Leg Injury | | + + + | Transfer of Care | | + + + AUTH/CERT +--------+--------+ + + + + | Status | Reason | Specialty | Diagnoses / | Referred By | Referred To | | | | | Procedures | Contact | Contact | +--------+--------+ + + + + | | | | | | | +--------+--------+ + + + + Encounter Details +--------+---------+ + + + | Date | Type | Department | Care Team | Description | +--------+---------+ + + + | 08/30/ | Surgery | 6A Intra Op [facility] | Leonard Zarate, | Open Reduction | | 2019 | | [facility] | MD [address] | Internal | | | | Admitting Desk | [facility] | Fixationleft tibial | | | | Located on the | [place], [place] | plateau fracture | | | | floor [address] [facility] | [address] | | | | | [facility] | [phone] | | | | | [place], [place] | | | | | | [address] | | | +--------+---------+ + + + Social History + +-------+ [...] + + + as of this encounter Last Filed Vital Signs + + + [...] AM PST | + + + + in this encounter Functional Status + + + + | Functional Status | Response | Date of Assessment | + + + + | Because of a physical, mental, or emotional | No | 08/31/2018 | | condition, do you have serious difficulty | | | | doing errands alone such as visiting the | | | | doctor? | | | + + + + + + + + | Cognitive Status | Response | Date of Assessment | + + + + | Because of a physical, mental, or emotional | No | 08/31/2018 | | condition, do you have serious difficulty | | | | concentrating, remembering, or making | | | | decisions? (5 years old or older) | | | + + + + as of this encounter Discharge Summaries Natalya Millard AGACNP - 09/02/2018 8:51 AM PSTFormatting of this note may be different from the original. [facility]PART[facility] OF ORTHOPAEDICS & [facility]ABIL[facility]ATION INPATIENT HOSPITAL DISCHARGE SUMMARY & INTERDISCIPLINARY INSTRUCTIONS Patient: Emre Menendez CSN: [id number] Admission Date: 08/28/2018 Discharge Date: 09/02/2018 Attending Physician: Leonard Zarate MD PCP: Ilia Villegas MD Service: [facility] Orthopaedics & Rehabilitation Diagnoses Principal Final Diagnosis: 1. L bicondylar tibial plateau fracture, nondisplaced Procedures 08/30/2018: 1. ORIF L tibial plateau Brief Hospital Course Emre Menendez is a 77 y.o. male admitted for the procedure(s) described above. The inpatien t stay related to this procedure(s) took an uncomplicated perioperative course and the patie nt was followed closely by the attending providers, resident providers, and medical/nursing staff. Post operatively, the patient was admitted to the hospital for convalescent care. P ain control was managed with iv/po pain medication as needed. The Patient was given 24hrs o f IV antibiotics post-operatively. For DVT prophylaxis the patient was started on Lovenox a nd SCDs were also used. The patient made appropriate gains toward activity and functional goals while an inpatient, working daily with physical therapy. While on the hospital floor, the patient tolerated oral intake sufficient to maintain nutrition and hydration. The surgi guera wound remained clean, dry, and intact without signs concerning for infection. The patie nt was felt appropriate for discharge to home, and the patient and/or family members agree w ith this course of action. Diet Regular Regular diet- There are no restrictions to your diet. You may eat or drink whatever you pr efer, though healthy food choices are recommended. Wound Care - If you have sutures or gus, do not get your wound wet for 3-5 days after your operati on. Sponge bath or cover the incision with a waterproof bandage. Keep your incision covered with a dressing until there is no discharge on bandage.- If you have Steri-Strips (paper tap e) over your incision, keep the incision covered until there is no discharge on bandage. Do not remove Steri-Strips, they will fall off on their own. Trim edges of the Steri-Strips if they start to peel up. Do not get your wound wet for 5-7 days after your operation.- Once wo und is closed (no drainage), you may shower. Let water run over wound. Pat dry. Do not scrub or soak wound in water.- Avoid using lotions, powders, oils, or ointments on your incision. - DO NOT let anyone start you on antibiotics if they suspect your wound is infected. Call [facility] Orthopedics first at [phone]. Activity Nonweightbearing left leg Condition on Discharge Stable Follow-Up Appointments ORTHOPEDICS OUTPATIENT CLINIC: OK to have local provider (PCP) remove sutures in 3 weeks (~ 09/20). Follow up in 6 weeks (~10/11) with Dr Zarate. Call [phone] to confirm or schedule this appointment. PCP: As needed for any medical concerns not related to your surgery. Medication List START taking these medications acetaminophen 500 mg Tab Commonly known as: TYLENOL Take 2 tablets by mouth three times daily. Use this medication to help wean off your strong er opiate medication. DO NOT exceed 3200 mg in a 24 hr period. oxyCODONE (immediate release) 5 mg Tab Commonly known as: ROXICODONE Take 1 to 2 tablets by mouth every three hours as needed (moderate pain refractory to non-o piates). polyethylene glycol 17 gram Pwpk Commonly known as: MIRALAX Mix 1 packet and take orally once daily as needed (1st line - for no BM for 2 days). senna-docusate 8.6-50 mg Tab Commonly known as: SENOKOT S Take 1 tablet by mouth two times daily. tamsulosin 0.4 mg Cap Commonly known as: FLOMAX Take 1 capsule by mouth once daily. CONTINUE taking these medications acyclovir 400 mg Tab Commonly known as: ZOVIRAX Take 400 mg by mouth four times daily as needed (Cold sores). aspirin EC 81 mg Tbec Take 81 mg by mouth once daily. bisoprolol 5 mg Tab Commonly known as: ZEBETA Take 5 mg by mouth once daily. levothyroxine 25 mcg Tab Take 25 mcg by mouth before breakfast. losartan 100 mg Tab Commonly known as: COZAAR Take 100 mg by mouth once daily. Indications: high blood pressure pravastatin 40 mg Tab Commonly known as: PRAVACHOL Take 40 mg by mouth once daily at bedtime. TURMERIC ORAL Take 900 mg by mouth once daily. ASK your doctor about these medications RX DURABLE MEDICAL EQUIPMENT MD 19" wheelchair with elevated leg lifts Duration:3mo Problem: Closed fracture of left tibia and fibula, initial encounter Associated ICD10 Code: S82.202A, S82.402A Ask about: Should I take this medication? [facility] Orthopaedic Service Pain Policy At the 6-week post-operative jered, pain management will be reassessed and pain management r ecommendations may be modified by the discretion of the Provider. At the 3-month post-operative jered, the patient will be referred to pain management for smitha oing pain of poly-trauma, referred to PCP, or transitioned to Tylenol. All refills must be requested through a pharmacy. The pharmacy may then either call the o ffice with a request or fax the request to clinic. Patients must give the Outpatient Clinic a minimum of 72 hours to refill or deny narcotic p rescription from the time that they receive request from pharmacy. Requests received after 3pm will not be processed until the following business day. Prescriptions will not be available through our office after-hours, weekends, and holidays. NO EXCEPTIONS. Deep Vein Thrombosis (Leg Blood Clot) Prevention DVT prophylaxis: You are at increased risk of forming a blood clot following your surgery. - We have recommended that you take Aspirin for 4 weeks following your surgery to decrease this risk. - See discharge prescriptions for administration instructions. - Call Orthopedic Clinic at [phone] if any persistent, localized swelling that does no t improve with time or elevation or if you have any persistent calf pain, shortness of breat h or chest pain. Contact Your Physician When to Call: 1. Difficulty breathing, chest pain or unusual shortness of breath; 2. Excessive bleeding, drainage, redness, swelling at the operative site (if the wound appe ars to be worse instead of better each day); 3. Fevers, chills, increased pain that is not relieved by pain medications; 4. Persistent nausea or vomiting; 5. Other specific concerns; Please call: - during business hours (8:00am - 4:30pm) - if after hours and ask for the orthopaedic surgery resident director of application development. Additional Post-Op Instructions / What to Expect CONSTIPATION - To prevent constipation you have been advised to purchase over the counter m edications that will help you have a bowel movement. These medications include senna and kirsten alax. Take these medications together until you have a bowel movement. Once you reach your g oal, you can reduce or stop taking one or both medications. If you have loose or excessive s tools stop taking the medication. Also keep in mind that eating a well balanced diet with pl enty of fruits and vegetables; proper hydration; and walking can also help encourage bowel m ovements. -Apply ice over the surgical site for 20 minutes at a time as needed for pain. -Avoid alcohol and smoking during the healing process. -You may experience numbness that is usually temporary. -There will be bruising and swelling that should improve in the first 2 weeks. -To reduce likelihood of falling at home, remove throw rugs, loose wires or other objects f rom floor and leave some lights on at night. - Elevate your extremity whenever possible to improve pain and swelling. Pain Management Opiate medications. Per policy, you will have only been written for 7 days of opiates upon discharge. It is best for your health to taper these medications gradually over the next 7 days. We recommend extend the time interval between the doses to taper. The alternative w ould be to maintain the same time interval, but decrease the dose. Example Taper: DOSE every 4 hours at time of discharge Day 1: DOSE every 4 hr Days 2: DOSE every 5 hours Days 3 - 4: DOSE every 6 hours Day 4 - 5: DOSE every 8 hours Day 6: DOSE every 12 hours Day 7: infrequent dose, only as needed, no more than once a day or with PT Over the Counter Medications: You are encouraged to use acetaminophen (aka Tylenol) as long as you have no history of nahomi er issues. The maximum daily dose of acetaminophen is 4000mg a day. Please follow the dire ctions on the bottle closely. One commonly used regimen while you are in the hospital is 1, 000mg three times daily, or 650mg four times daily. Please stop using immediately is you ar e having right sided abdominal pain, appear yellow and seek medical attention immediately. - You are advised to not drive, operate heavy equipment, or consume alcohol while on prescr iption narcotic pain medication. - Take a stool softener while taking narcotic pain medication in order to prevent constipat ion. - If you are running out of pain medication and feel that you will need more, call [phone] during business hours in order to get a new prescription. Please allow 48 hours for ref ills to be processed. - Schedule II narcotics can NOT be called in to a pharmacy. Please arrange for someone to p ick up your prescription or allow additional time for our clinic to mail you requested refil l. - On-call (after hours) MDs are not permitted to prescribe narcotic pain medications. - Prescriptions will not be available through our office on weekends or holidays. Home Health Referral after Hospitalization Comments: I certify that this patient is under my care and that I, or Nurse Practitioner or Physician Director Of Student Aid working with me, had a face to face encounter with this patient on 09/01/2018 On behalf of Attending Physician: Leonard Zarate MD I am ordering and certify that the following services are medically necessary [facility] Physical Therapy Evaluate and Treat I am ordering and certify that the following services are medically necessary [facility] Occupational Therapy Evaluate and Treat I am ordering and certify that the following services are medically necessary [facility] Care/Bath Aid I certify that the patient is homebound based on the following clinical findings Post-hospi emily weakness, decreased strength and endurance, and tires easily with minimal exertion Vital Signs on Discharge: Ht 1.778 m (5' 10"), Wt 89.6 kg (197 lb 8 oz), BP 122/79, Pulse 7 0, Temperature 36.6 C (97.9 F), RR 16, SpO2 92%, BMI 28.34 kg/(m^2). Facility age limit for growth percentiles is 18 years. Condition on Discharge: Improved Discharging Patient To: Home Date and Time of Discharge Summary Completion: 09/02/2018, 8:51 AM Discharging Provider: MAGDALENA Barrios Discharging Attending: Leonard Zarate MD Thank you for the opportunity to take care of Emre Menendez during this inpatient stay, it has been our pleasure. MAGDALENA Barrios [facility] Department of Orthopaedics & Rehabilitation [address] [place] [address] Mail Code: OP31 [facility] [phone] in this encounter Medications at Time of Discharge + + +---------+---------+ + + | Medication | Sig. | Disp. | Refills | Start | End Date | | | | | | Date | | + + +---------+---------+ + + | acetaminophen 500 | Take 2 tablets by | | | 09/02/19 | | | mg oral tablet | mouth three times | | | 19 | | | | daily. Use this | | | | | | | medication to [...] hr period. | | | | | + + +---------+---------+ + + | acyclovir 400 mg | Take 400 mg by mouth | | | | | | oral tablet | four times daily as | | | | | | | needed (Cold | | | | | | | sores). | | | | | + + +---------+---------+ + + | aspirin EC 81 mg | Take 81 mg by mouth | | | | | | oral tablet,delayed | once daily. | | | | | | release (DR/EC) | | | | | | + + +---------+---------+ + + | bisoprolol 5 mg | Take 5 mg by mouth | | | | | | oral tablet | once daily. | | | | | + + +---------+---------+ + + | levothyroxine 25 | Take 25 mcg by mouth | | | | | | mcg oral tablet | before breakfast. | | | | | + + +---------+---------+ + + | losartan 100 mg | Take 100 mg by mouth | | | | | | oral | once daily. | | | | | | tabletIndications: | Indications: high | | | | | | high blood pressure | blood pressure | | | | | + + +---------+---------+ + + | oxyCODONE | Take 1 to 2 tablets | 90 | 0 | 09/02/19 | | | (immediate release) | by mouth every three | tablet | | 19 | | | 5 mg oral | hours as needed | | | | | | tabletIndications: | (moderate pain | | | | | | Closed fracture of | refractory to | | | | | | left tibia and | non-opiates). | | | | | | fibula, initial | | | | | | | encounter | | | | | | + + +---------+---------+ + + | polyethylene | Mix 1 packet and | 24 | 0 | 09/02/19 | | | glycol 17 gram oral | take orally once | packet | | 19 | | | powder in packet | daily as needed (1st | | | | | | | line - for no BM | | | | | | | for 2 days). | | | | | + + +---------+---------+ + + | pravastatin 40 mg | Take 40 mg by mouth | | | | | | oral tablet | once daily at | | | | | | | bedtime. | | | | | + + +---------+---------+ + + | senna-docusate | Take 1 tablet by | | | 09/02/19 | | | 8.6-50 mg oral | mouth two times | | | 19 | | | tablet | daily. | | | | | + + +---------+---------+ + + | tamsulosin 0.4 mg | Take 1 capsule by | 60 | 0 | 09/02/19 | | | oral capsule | mouth once daily. | capsule | | 19 | | + + +---------+---------+ + + | TURMERIC ORAL | Take 900 mg by mouth | | | | | | | once daily. | | | | | + + +---------+---------+ + + as of this encounter Progress Notes Natalya Millard AGACNRee - 09/02/2018 8:42 AM PSTFormatting of this note may be different from the original. Orthopaedic Surgery Progress Note Patient: /Age: MRN: CSN: Date: Admission Date: Hospital Day: Orthopaedic Attending: Emre Menendez 1940 77 y.o. [id number] 09/02/2018 08/28/2018 5 Leonard Zarate MD Diagnosis(es): 1. L bicondylar tibial plateau fracture, nondisplaced Orthopaedic Procedure(s) & Date(s): 08/30/2018: 1. ORIF L tibial plateau Assessment & Plan: Emre Menendez is a 77 y.o.M with the above-described diagnoses and procedures. Today's specific concerns include: #L bicondylar tibial plateau fracture Now s/p operative fixation, as above. Doing well, pain adequately controlled. Tolerating pa in on current pain regimen . Anticipate discharge to home today 09/02 -- TDWB LLE, reinforced with pt #postop urinary retention Elderly man with postop urinary retention, now well controlled with tamsulosin -- tamsulosin at discharge x60 d to give him time to schedule PCP visit -- outpatient follow up with PCP #dvt ppx -- lovenox while inpatient -- will discharge with ASA 81 BID x3-4 weeks Secondary Survey: Done on 08/31/2018 Care Protocol Items: 1. Immobility due to illness 1. Weight bearing: touch-down weight bearing, left lower extr emity 2. ROM: as tolerated, motion encouraged 2. VTE prophylaxis: high risk, lovenox SC 40mg daily or by weight, sequential compression d evices, discharging on 81mg ASA daily x4 weeks 3. Antibiotics: ceFAZolin, for 24 hours perioperatively completed 4. Special Concerns: post-op imaging reviewed, case managment for discharge planning, 5. Drains: None 6. Dressings: DRESSING CARE Leave dressing in place until your follow up appointment, or at a minimum, 7-10 days after leaving the hospital. After that time, you may change your dressing daily and check the inc ision for any signs of infection, such as: redness, swelling, unusual pain, or increasing d rainage. Your incision should be kept clean and dry. If you have sutures or gus, do not get your wound wet for 5-7 days after your operation: either sponge bath or cover the incis ion with a waterproof bandage. You may shower, but please do not scrub at the dressing/surg ical site. Please do not soak the dressing in pool, tub, or jacuzzi. Keep your incision co beto with a dressing until there is no discharge on bandage. 5. Orthopaedic Follow-up: OK to have PCP or local provider evaluate inscions and remove sut ures ~ 3wks post op (~09/20) Please call the clinic to make a follow up appointment in approx imately 6 weeks (~10/11) with ORTHO TRAUMA & FRACTURE, Dr Zarate Subjective: -- pain well controlled -- ready to go home today, son is 4hrs away so calling him now Objective: BP 122/79 (BP Location: Right upper arm, Patient Position: Lying on back) | Pulse 70 | Te mp 36.6 C (97.9 F) | Resp 16 | Ht 1.778 m (5' 10") | Wt 89.6 kg (197 lb 8 oz) | SpO2 92% | BMI 28.34 kg/m | BSA 2.1 m Imaging: Radiograph, L knee, 08/30/2018: per my read: - tibial plateau fracture s./p ORIF, with hardware well positioned and intact Exam: General: Adult M, resting semi-recumbent in bed. Appears younger than stated age. Appears comfortable, NAD, smiling, with bright and happy eyes. Family () present at bedside. Neuro: AAOx4, face grossly symmetric CV: RRR by palp, extremities wwp Pulm: Unlabored breathing at regular rate on RA. Easily conversant. MSK: LEFT LOWER EXTREMITY: Inspection: Elevated on leg ramp. Surgical dressing in place, with compressive overwrap, m ild strikethru on kerlix over proximal aspect of lateral leg, otherwise c/d/i, all dressing removed, sutured incisions well approxiamted No visible erythema. No visible drainage. , red ressed with Mepilex and acewrapped. Palpation: Deferred about the knee, otherwise NT. ROM: full A/ROM ankle, foot, toes Motor: fires tibialis anterior, fires gastrocsoleus complex, fires EHL, fires FHL, fire s quads Sensory: SILT saph/SPN/DPN/sural/tibial Vascular: palpable dorsalis pedis, digits warm & well perfused Reflexes: not performed Natalya Millard, [facility] Orthopaedic Trauma Surgery Pager [phone] Jacqueline Flowers MD, JUANITA - 09/01/2018 9:04 AM PSTFormatting of this note may be different fro m the original. Orthopaedic Surgery Progress Note Patient: /Age: MRN: CSN: Date: Admission Date: Hospital Day: Orthopaedic Attending: Emre Menendez 1940 77 y.o. [id number] 09/01/2018 08/28/2018 4 Leonard Zarate MD Diagnosis(es): 1. L bicondylar tibial plateau fracture, nondisplaced Orthopaedic Procedure(s) & Date(s): 08/30/2018: 1. ORIF L tibial plateau Assessment & Plan: Emre Menendez is a 77 y.o.M with the above-described diagnoses and procedures. Today's specific concerns include: #L bicondylar tibial plateau fracture Now s/p operative fixation, as above. Doing well, pain adequately controlled. Will trial ho me pain med package today. Anticipate discharge to home 09/02 -- TDWB LLE, reinforced with pt -- pain control: discontinued HM IV prn for breakthru today -- mobilize with PT -- anticipate discharge to home 09/02 PM #postop urinary retention Elderly man with postop urinary retention, now well controlled with tamsulosin -- tamsulosin at discharge x30 d -- outpatient follow up with PCP #dvt ppx -- lovenox while inpatient -- will discharge with ASA 81 BID x3-4 weeks Secondary Survey: Done on 08/31/2018 Care Protocol Items: 1. Immobility due to illness 1. Weight bearing: touch-down weight bearing, left lower extr emity 2. ROM: as tolerated, motion encouraged 2. VTE prophylaxis: high risk, lovenox SC 40mg daily or by weight, sequential compression d evices 3. Antibiotics: ceFAZolin, for 24 hours perioperatively 4. Special Concerns: post-op imaging reviewed, case managment for discharge planning, 5. Drains: None 6. Dressings: DRESSING CARE Leave dressing in place until your follow up appointment, or at a minimum, 7-10 days after leaving the hospital. After that time, you may change your dressing daily and check the inc ision for any signs of infection, such as: redness, swelling, unusual pain, or increasing d rainage. Your incision should be kept clean and dry. If you have sutures or gus, do not get your wound wet for 5-7 days after your operation: either sponge bath or cover the incis ion with a waterproof bandage. You may shower, but please do not scrub at the dressing/surg ical site. Please do not soak the dressing in pool, tub, or jacuzzi. Keep your incision co beto with a dressing until there is no discharge on bandage. If you have Steri-Strips (paper tape) over your incision, keep the incision covered until t here is no discharge on bandage. Do not remove Steri-Strips, they will fall off on own. Tr im edges of the Steri-Strips if they start to peel up. Do not soak in a bath tub or hot tub until your wound is completely healed, this usually takes 3-4 weeks Do not shave over the incision. Do not use lotions, powders, oils, or ointments on your incision. 5. Orthopaedic Follow-up: Please call the clinic to make a follow up appointment in [facility] 2 weeks with ORTHO TRAUMA & FRACTURE, AYLEEN Lara Subjective: -- pain well controlled -- asked this provider if I thought his ski boot might fit differently after he heals Objective: BP 118/53 (BP Location: Right upper arm, Patient Position: Lying on back) | Pulse 69 | Te mp 36.5 C (97.7 F) | Resp 18 | Ht 1.778 m (5' 10") | Wt 89.6 kg (197 lb 8 oz) | SpO2 97% | BMI 28.34 kg/m | BSA 2.1 m Imaging: Radiograph, L knee, 08/30/2018: per my read: - tibial plateau fracture s./p ORIF, with hardware well positioned and intact Exam: General: Adult M, resting semi-recumbent in bed. Appears younger than stated age. Appears comfortable, NAD, smiling, with bright and happy eyes. Family () present at bedside. Neuro: AAOx4, face grossly symmetric CV: RRR by palp, extremities wwp Pulm: Unlabored breathing at regular rate on RA. Easily conversant. MSK: LEFT LOWER EXTREMITY: Inspection: Elevated on leg ramp. Surgical dressing in place, with compressive overwrap, m ild strikethru on kerlix over proximal aspect of lateral leg, otherwise c/d/i, not taken paola n. No visible erythema. No visible drainage. Palpation: Deferred about the knee, otherwise NT. ROM: full A/ROM ankle, foot, toes Motor: fires tibialis anterior, fires gastrocsoleus complex, fires EHL, fires FHL, fire s quads Sensory: SILT saph/SPN/DPN/sural/tibial Vascular: palpable dorsalis pedis, digits warm & well perfused Reflexes: not performed Jacqueline Flowers MD, JUANITA [facility] Department of Orthopaedics & Rehabilitation [address] [place] [address] Mail Code: OP31 [facility] [id number] Addendum: Emre Menendez is a 77 year old male with a left bicondylar tibial plateau fracture who was s urgically fixed on 08/30/18 with a plate and screw construct. Given the nature of the constru ct, he will need to remain only touch down weight bearing on that side to enable appropriate bony healing; this will restrict his ambulation for 6-12 weeks. Currently, he has difficult y supporting his own weight with his upper extremities using a walker, which places him at h igh risk of falling and compromising his fixation and potential for healing. He was only abl e to walk with the walker 15 feet safely. He is normally independent at home and only has he lp from his ; family lives hours away. Given his current mobility concerns and need to p rotect his surgical fixation, we recommend that the patient receive a manual wheelchair for use outside of the hospital. He will likely require such use for activities of daily living required for both in and erh-gu-vke-house activities. Patient has the physical and cognitive capacity to use a manual wheelchair. Jacqueline Flowers MD, JUANITA Orthopaedic Surgery resident, PGY1 [id number] Melchor Turner MD - 08/31/2018 10:19 AM PSTFormatting of this note may be different from the original. Orthopaedic Surgery Progress Note Patient: /Age: MRN: CSN: Date: Admission Date: Hospital Day: Orthopaedic Attending: Emre Menendez 1940 77 y.o. [id number] 08/31/2018 08/28/2018 3 Leonard Zarate MD Diagnosis(es): 1. L bicondylar tibial plateau fracture, nondisplaced Orthopaedic Procedure(s) & Date(s): 08/30/2018: 1. ORIF L tibial plateau Assessment & Plan: Emre Menendez is a 77 y.o.M with the above-described diagnoses and procedures. Today's specific concerns include: #L bicondylar tibial plateau fracture Now s/p operative fixation, as above -- pain control -- mobilize with PT #dvt ppt -- lovenox while inpatient -- will discharge with ASA 81 BID x3-4 weeks Secondary Survey: Done on 08/31/2018 Care Protocol Items: 1. Immobility due to illness 1. Weight bearing: touch-down weight bearing, left lower extr emity 2. ROM: as tolerated, motion encouraged 2. VTE prophylaxis: high risk, lovenox SC 40mg daily or by weight, sequential compression d evices 3. Antibiotics: ceFAZolin, for 24 hours perioperatively 4. Special Concerns: post-op imaging reviewed, case managment for discharge planning, rainey out POD#1 5. Drains: None 6. Dressings: DRESSING CARE Leave dressing in place until your follow up appointment, or at a minimum, 7-10 days after leaving the hospital. After that time, you may change your dressing daily and check the inc ision for any signs of infection, such as: redness, swelling, unusual pain, or increasing d rainage. Your incision should be kept clean and dry. If you have sutures or gus, do not get your wound wet for 5-7 days after your operation: either sponge bath or cover the incis ion with a waterproof bandage. You may shower, but please do not scrub at the dressing/surg ical site. Please do not soak the dressing in pool, tub, or jacuzzi. Keep your incision co beto with a dressing until there is no discharge on bandage. If you have Steri-Strips (paper tape) over your incision, keep the incision covered until t here is no discharge on bandage. Do not remove Steri-Strips, they will fall off on own. Tr im edges of the Steri-Strips if they start to peel up. Do not soak in a bath tub or hot tub until your wound is completely healed, this usually takes 3-4 weeks Do not shave over the incision. Do not use lotions, powders, oils, or ointments on your incision. 5. Orthopaedic Follow-up: Please call the clinic to make a follow up appointment in [facility] 2 weeks with ORTHO TRAUMA & FRACTURE, AYLEEN Lara Subjective: -- pain well controlled -- discussed skiing. Pt looks forward to getting back out on the slope, acknowledges he's l ikely to miss this season, looks forward to possibly catching the tail end of [place] on [place] Objective: BP 123/50 (BP Location: Right upper arm, Patient Position: Lying on back) | Pulse 63 | Te mp 36.7 C (98.1 F) | Resp 16 | Ht 1.778 m (5' 10") | Wt 89.6 kg (197 lb 8 oz) | SpO2 94% | BMI 28.34 kg/m | BSA 2.1 m Imaging: Radiograph, L knee, 08/30/2018: per my read: - tibial plateau fracture s./p ORIF, with hardware well positioned and intact Exam: General: Adult M, resting semi-recumbent in bed. Appears younger than stated age. Appears comfortable, NAD. Family () present at bedside. Neuro: AAOx4, face grossly symmetric CV: RRR by palp, extremities wwp Pulm: Unlabored breathing at regular rate on RA. Easily conversant. MSK: LEFT LOWER EXTREMITY: Inspection: Elevated on leg ramp. Surgical dressing in place, with compressive overwrap, c /d/i, not taken down. No visible erythema. No visible drainage. Palpation: Deferred about the knee, otherwise NT. ROM: full A/ROM ankle, foot, toes Motor: fires tibialis anterior, fires gastrocsoleus complex, fires EHL, fires FHL Sensory: grossly intact to light touch, medial, lateral, dorsal, 1st dorsal web space, p lantar Vascular: palpable dorsalis pedis, palpable posterior tibial, digits warm & well perfused , capillary refill < 2 seconds Reflexes: not performed Jacqueline Flowers MD, JUANITA [facility] Department of Orthopaedics & Rehabilitation [address] [facility] Mail Code: OP31 [facility] [address] Addendum: Emre Menendez is a 77 year old male with a left bicondylar tibial plateau fracture who was s urgically fixed on 08/30/18 with a plate and screw construct. Given the nature of the constru ct, he will need to remain only touch down weight bearing on that side to enable appropriate bony healing; this will restrict his ambulation for 6-12 weeks. Currently, he has difficult y supporting his own weight with his upper extremities using a walker, which places him at h igh risk of falling and compromising his fixation and potential for healing. He was only abl e to walk with the walker 15 feet safely. He is normally independent at home and only has he lp from his ; family lives hours away. Given his current mobility concerns and need to p rotect his surgical fixation, we recommend that the patient receive a manual wheelchair for use outside of the hospital. He will likely require such use for activities of daily living required for both in and ilv-pr-mvw-house activities. Patient has the physical and cognitive capacity to use a manual wheelchair. Melchor Turner MD Orthopaedic Surgery, R2 08/31/2018 2:20 PM Corey Burris MD - 08/30/2018 10:13 AM PSTFormatting of this note may be different from the original. .INPATIENT PROGRESS NOTE Hospital Day:2 Author; COREY BURRIS MD Interval Hx: No new issues overnight. Has been elevating leg appropriately. Physical Exam: Last Vitals: BP 154/67 (BP Location: Right upper arm, Patient Position: Lying on back) | P ulse 83 | Temp 36.9 C (98.4 F) | Resp 16 | Ht 1.778 m (5' 10") | Wt 89.6 kg (197 lb 8 oz) | SpO2 95% | BMI 28.34 kg/m | BSA 2.1 m O2 Delivery Device: None (room air) (08/30/18 0800) 24 Hour Vital Min/Max: Systolic (24hrs), Av , Min:94 , Max:154 Diastolic (24hrs), Av, Min:53, Max:67Pulse Av.3 Min: 67 Max: 83 Temp Av.8 C (98.3 F) Min: 36.7 C (98.1 F) Max: 36.9 C (98.4 F) Resp Av Min: 16 Max: 16 SpO2 Av.3 % Min: 91 % Max: 95 % Intake/Output Summary (Last 24 hours) at 08/30/18 1014 Last data filed at 08/30/18 0400 Gross per 24 hour Intake 20 ml Output 1475 ml Net -1455 ml Compartments available are easily soft. Active ankle plantarflexion and dorsiflexion. Sen sation intact in first dorsal space, dorsal surface of foot, and plantar surface of foot. Assessment and Plan: Stable. Will transfer care to orthopedic trauma team for definitive fixation. Explained t he process to the patient and he seems to understand. Finn Paula MD - 08/30/2018 8:54 AM PSTFormatting of this note may be different from the original. Internal Medicine Clinical Hospitalist Service Progress Note 24 Hour Events: - no acute events overnight - TTE completed yesterday late PM: LVEF 55-60%, normal LV function, no valvular/perivalvul ar regurgitation at AVR site (short acceleration time suggestive of patient prosthesis [facility], follow-up as an outpatient) - plan for operative repair of L tibial plateau fracture later today Current Symptoms: - feels well today, slept ~5 consecutive hours last night after oxy administration - some sternal soreness from his fall, but no new CP, SOB, palpitations, dizziness, light-h eadedness Physical Examination: Last 24 hour min/max Temp: 36.9 C (98.4 F) Temp Min: 36.7 C (98.1 F) Max: 36.9 C (98.4 F) Pulse: 83 Pulse Min: 67 Max: 83 Resp: 16 Resp Min: 16 Max: 16 BP: 154/67 BP Min: 94/53 Max: 154/67 SpO2: 95 % SpO2 Min: 91 % Max: 95 % Body mass index is 28.34 kg/m. General: Comfortable in bed, NAD, a/o, pleasant Head and Eyes: Head atraumatic. EOMI Neck: Supple. JVP slightly above clavicle at 45 degrees Cardiovascular: S1 and S2 present. RRR, 2/6 systolic murmur over RUSB Pulmonary: clear bilaterally, no w/r/r Abdominal: Soft, nontender and nondistended Extremities: no c/c, no edema; LLE in a brace Laboratory Interpretation: Na = 137 (138) K = 4.1 (4.0) Cr = 1.27 (1.23) Mg = 2.5 Wbc = 9.4 (10.7) Hct = 40.3 (44.2) Plt = 137 (188) Imaging Interpretation: TTE completed yesterday late PM: LVEF 55-60%, normal LV function, mildly increased RVSP, n o valvular/perivalvular regurgitation at AVR site (short acceleration time suggestive of pat ient prosthesis mismatch, follow-up as an outpatient) Assessment and Plan Emre Menendez is a 77 y.o. M with PMHx of CAD s/p single vessel bypass and aortic valve re placement, Hypothyroidism, HTN, who presents with a tibial plateau fracture after a skiing a ccident. We are consulted for preoperative risk stratification. Perioperative risk stratification CAD s/p PCI x2 followed by CABG AVR The patient has a history of CAD s/p PCI followed by CABG, without subsequent ACS nor histo ry of HF. On exam, JVP falls within normal limits. He can clearly exceed 4 mets without is maru, as he can ski a black jesus without chest pain nor dyspnea. However, EKG revealed a LBBB of uncertain chronicity. I suspect this is not new, but will repeat TTE to exclude int erval development of new wall motion abnormalities. - Convey TTE results to patient's local director clinical operations -- (short acceleration time suggestive of patient prosthesis mismatch, follow-up as an outpatient) - Patient cleared for surgery - Continuebisoprolol perioperatively - Continue pravastatin perioperatively. - Recommend to hold losartan on the day of surgery, can restart the following day if BP terry erates and Cr stable - Resume ASA 81 as soon as deemed safe per Orthopedics team [facility] will sign off at this time, please page [phone] with further questions. MD Chloé Mcnamara MD Pager - [phone] Clinical and Medical Teaching Hospitalist Services [facility] I spent more than 25 minutes in the care of the patient of which greater than 50% was spent counseling the patient regarding perioperative management, TTE results; coordination of car e with orthopedics. Natalya Millard AGACNP - 08/30/2018 8:52 AM PSTFormatting of this note may be different from the original. Orthopaedic Surgery Progress Note Date: 08/30/2018 Hospital Day: 2 Orthopaedic Attending: Leonard Zarate MD Diagnosis(es): Left tibial plateau fracture Orthopaedic Procedure(s) & Date(s): 08/30/2018: (tentative) 1. ORIF Left tibial plateau Assessment & Plan: Emre Menendez is a 77 y.o.M with the orthopaedic diagnoses and procedur es listed above. Today's specific concerns include: TTE read today, cleared for OR NPO Reviewed procedure with patient and at bedside Secondary Survey: Done on 08/29/2018 Care Protocol Items: 1. Activity: 1. Weight bearing: non-weight bearing, left lower extremity 2. ROM: as tolerated, ankle, foot/toe, motion encouraged 2. VTE prophylaxis: high risk, lovenox SC 40mg daily or by weight, sequential compression d evices, Please hold chemoppx night of surgery 3. Pain management: oral analgesia and IV analgesia, wean as possible 4. Antibiotics: ceFAZolin, for 24 hours perioperatively 5. Special Concerns: case managment for discharge planning 6. Dressings/Drains: Maintain knee immobilizer until OR 7. Dispo/Discharge: Continue acute inpatient care 8. Follow-up: To be determined, based on clinical course Subjective: Pain well controlled, he and his asked appropriate questions regarding surgical plan. Surgical food and beverage intern and patient also engaged in a brief conversation about the love of skiing. Objective: 24 hour Vitals: Temp Av.8 C (98.3 F) Min: 36.7 C (98.1 F) Max: 36.9 C (98.4 F) Systolic (24hrs), Av , Min:94 , Max:154 Diastolic (24hrs), Av, Min:53, Max:67 Pulse Av.3 Min: 67 Max: 83 SpO2 Av.3 % Min: 91 % Max: 95 % Lab Results Component Value Date HCT 40.3 08/30/2018 HCT 44.2 08/28/2018 Lab Results Component Value Date WBC 9.42 08/30/2018 HB 13.1 08/30/2018 HCT 40.3 08/30/2018 PLT 137 08/30/2018 MCV 98.5 08/30/2018 RDW 50.7 08/30/2018 Lab Results Component Value Date NA 137 08/30/2018 K 4.1 08/30/2018 CL 106 08/30/2018 BICARB 25 08/30/2018 BUN 24 08/30/2018 EGFRAFRICAN >60 08/30/2018 EGFRNONAFR 55 08/30/2018 CR 1.27 08/30/2018 GLU 110 08/30/2018 CA 8.1 08/30/2018 ANIONGAP 6 08/30/2018 Intake/Output Summary (Last 24 hours) at 08/30/18 0814 Last data filed at 08/30/18 0400 Gross per 24 hour Intake 20 ml Output 1475 ml Net -1455 ml Exam: General: appropriate, oriented, pleasant affect, NAD Pulm/Card: Easily conversant on RA, regular pulse, not auscultated LEFT LOWER EXTREMITY: Inspection: KI in place,leg elevated on pillows ROM: No pain with passive stretch of toes Motor: fires tibialis anterior, fires gastrocsoleus complex, fires EHL, fires FHL, Sensory: grossly intact to light touch, medial, lateral, dorsal, 1st dorsal web space, p lantar Vascular: palpable dorsalis pedis, palpable posterior tibial, digits warm & well perfused , capillary refill < 2 seconds Natalya Millard, [facility] Orthopaedic Trauma Surgery Pager [phone] Associated attestation - Leonard Zarate MD - 08/30/2018 4:03 PM PSTOrtho Staff Daily Rou nding Note I have personally seen and examined Emre Menendez today. I have discussed the findings wit h the orthopaedic trauma team residents and agree with the full plan as detailed in the zack y progress note today. To OR today. Swelling is not too bad. Will plna for ORIf of the tibia plateau fracture. Please do not hesitate to call me for questions. LEONARD ZARATE MD [facility] [address] [id number] [place] [address] Marta Haines - 08/29/2018 3:24 PM PSTTransthoracic echocardiogram completed. Final report to follow. Shirley Blevins MD - 08/29/2018 2:43 PM PSTFormatting of this note may be different from the original. Orthopaedic Surgery Progress Note Attending: [place] Diagnosis: Left tibial plateau fracture Procedures: None S: Pain controlled. Seems to understand management plan. O: Last Vitals: BP 113/62 (BP Location: Right upper arm, Patient Position: Lying on back) | P ulse 71 | Temp 36.6 C (97.9 F) | Resp 14 | Ht 1.778 m (5' 10") | Wt 89.6 kg (197 lb 8 oz) | SpO2 93% | BMI 28.34 kg/m | BSA 2.1 m 24 Hour Vital Min/Max: Systolic (24hrs), Av , Min:109 , Max:166 Diastolic (24hrs), Av, Min:62, Max:78 Pulse Min: 63 Max: 72 Temp Min: 36.6 C (97.9 F) Max: 36.8 C (98.2 F) Resp Min: 14 Max: 18 SpO2 Min: 92 % Max: 97 % Intake/Output Summary (Last 24 hours) at 08/29/18 1443 Last data filed at 08/29/18 1419 Gross per 24 hour Intake 20 ml Output 625 ml Net -605 ml CBC with diff last 72 hours (or 3 results) Recent Labs 08/28/182024 WBC 10.72 HB 14.2 HCT 44.2 PLT 188 Gen: NAD Bilateral upper extremities and RLE atraumatic with full active ROM LLE: KI in place, moderate effusion, mild edema at the knee, actively dorsi and plantar fle xes ankle, wiggles toes, SILT at the foot including first dorsal web space, toes wwp. A/P: Emre Menendez is a 77 y.o. male with the above diagnosis/procedures who is stable . Left tibial plateau fracture - NWB LLE, maintain KI - Elevate, will obtain leg ramp today - NPO midnight for OR tomorrow - Consent completed, Type and screen done - TTE being completed right now for evaluation prior to OR - Xrays and CT completed for preop - Holding losartan tomorrow for periop - Flomax added due to difficulty voiding when in bed - 1 dose lovenox this afternoon for DVT ppx Secondary survey completed today with no additional injuries Plan discussed with patient and his partner. Shirley Blevins MD Orthopaedic Surgery PGY-5 Pager: [phone] Dakotah Muñoz MD - 08/28/2018 11:27 PM PSTAdmit orders placed by orthopedics. Please compl ete TTE prior to coming to floor if possible. Dakotah Muñoz, PGY-2 Orthopedic Surgery [id number] Dakotah Muñoz MD - 08/28/2018 11:27 PM PSTFormatting of this note may be different from crys marrero. [facility] DEPARTMENT OF ORTHOPAEDICS & REHABILITATION COMPARTMENT CHECK Emre Menendez Author: Dakotah Muñoz MD Attending: Corey Burris Pain with passive stretch: no Distal Pulse: palpable Compartments compressible: soft, compressible Paresthesias:no Pain level: well controlled. Will recheck in 5 hours approximately. I have re-instructed the nurse and patient/family on what signs and symptoms to watch for. Dakotah Muñoz MD 08/28/2018, 11:25 PM in this encounter Plan of Treatment +--------+---------+ + + + | Date | Type | Specialty | Care Team | Description | +--------+---------+ + + + | 10/19/ | Office | Orthopedics | Leonard Zarate, | | | 2018 | Visit | | [address] [facility] | | | | | | Hussain Lassiter | | | | | | [place], [place] | | | | | | [address] | | | | | | [phone] | | | | | | | | +--------+---------+ + + + + +--------+ + + | Name | Priori | Associated Diagnoses | Order Schedule | | | ty | | | + +--------+ + + | TRANSTHORACIC ECHOCARDIOGRAM, | Urgent | | One Time for 1 | | ADULT | | | Occurrences starting | | | | | 08/29/2018 until | | | | | 08/29/2018 | + +--------+ + + as of this encounter Procedures + +--------+ + + + | [...] section. | + +--------+ + + + in this encounter Results PROCEDURE NOTE (09/02/2018 2:24 PM) + + + | Narrative | Performed At | + + + | Leonard Zarate MD 09/06/2018 12:42 PM Date of Service: | | | 08/30/2018 Attending Surgeon: Leonard Zarate MD | | | Director Of Student Aid(s): kwame barrientos MD Preoperative Diagnosis: 1. left [...] 2-3 weeks locally in | | | [place] with his PCP for suture removal. He will need to return | | | and see me at the 6 week marke with repeat xrasy ap/lateral left | | | knee at his 6 week followup visit. In accordance with medicare | | | guidelines I was present for the critical portion of the procedure. | | | Leonard Zarate MD | | + + + PROCEDURE [...] report as now presented. Final signature: Douglas Burden | | | 08/31/2018 8:05 AM Preliminary: Jesse Bernard MD | | | Dictation initiated: Jesse Bernard MD 08/31/2018 7:34 AM | | + + + + + | Procedure Note | + + | Service Account, Vehrity Res In Interface - 08/31/2018 8:06 AM [...] now presented. | | | |Final signature: Douglas Burden MD 08/31/2018 8:05 AM | |Preliminary: [...] BLOOD GLUCOSE (NO CHG), POC (08/30/2018 6:16 PM) + +---------+ + + | Component | Value | Ref Range | Performed At | + +---------+ + + | BLOOD GLUCOSE, POC | 111 (H) | 60 - 99 mg/dL | [facility] | | | | | [place] [facility] | | | | | CARE TESTS | + +---------+ + + + + + + + | Performing | Address | City/State/Zipcode | Phone Number | | Organization | | | | + + + + + | [facility] | [address] [facility] [facility] [facility] | [place], [place] | | | [place] [facility] [place] [place] | [facility] | [address] | | | TESTS | | | | + + + + + PROCEDURE NOTE (08/30/2018 6:08 PM) + + + | Narrative | Performed At | + + + | Kwame Barrientos MD 08/30/2018 6:20 PM [facility] | | | [facility] Department of Orthopaedics & Rehabilitation | | | BRIEF OPERATIVE NOTE Patient: /Age: MRN: CSN: | | | Date: Admission Date: Hospital Day: Orthopaedic | | | Attending: Emre Menendez 1940 77 y.o. [id number] | | | 08/30/2018 08/28/2018 2 Leonard Zarate MD | | | Attending | | | Surgeon: Leonard Zarate MD Director Of Student Aid(s): MD Melchor MARTINEZ | | | MD [...] Concerns: post-op imaging ordered, | | | rainey out POD#1 6. Disposition: Continue acute inpatient care | | | 7. Orthopaedic Follow-up: ORTHO TRAUMA & FRACTURE, | | | [phone] Please call the clinic to make a follow up appointment | | | in approximately 2 weeks with Thao Hodge 8. Anticipated | | | Discharge: 2-3 days KWAME BARRIENTOS MD | | | [facility] | | | [place] Department of Orthopaedics & Rehabilitation [address] [place] [address] | | | [facility] Mail Code: OP31 [facility] [address] | | | | | + + [...] requested. - | | + + + CAPILLARY BLOOD GLUCOSE (NO CHG), POC (08/30/2018 2:37 PM) + +-------+ + + | Component | Value | Ref Range | Performed At | + +-------+ + + | BLOOD GLUCOSE, POC | 97 | 60 - 99 mg/dL | [facility] | | | | | [place] | | | | | CARE TESTS | + +-------+ + + + + + + + | Performing | Address | City/State/Zipcode | Phone Number | | Organization | | | | + + + + + | [facility] | [address] | [place], [place] | | | [facility] | [address] | [address] | | | TESTS | | | | + + + + + CBC (HEMOGRAM) ONLY (08/30/2018 5:00 AM) + + + + + | Component | Value | Ref Range | Performed At | + + + + + | WHITE CELL COUNT | 9.42 | 3.50 - 10.80 K/cu mm | [facility] | | | | | SERVICES, CORE | + + + + + | RED CELL COUNT | 4.09 (L) | 4.50 - 6.00 M/cu mm | [facility] | | | | [...] 32.5 | 32.0 - 36.0 g/dL | [facility] | | | | | SERVICES, CORE | + + + + + | RDW SD | 50.7 (H) | 35.1 - 46.3 fL | [facility] | | | | | SERVICES, CORE | + + + + + | PLATELET COUNT | 137 (L)Comment: Few | 150 - 400 K/cu mm | [facility] | | | platelet clumps present. | | SERVICES, CORE | | | Macroplatelets present. | | | + + + + + | MPV | 11.5 | 9.7 - 12.3 fL | [facility] | | | | | SERVICES, CORE | + + + + + | NRBC% | 0.0 | 0.0 - 0.3 % | [facility] | | | | | SERVICES, CORE | + + + + + | NRBC# | 0.00 | 0.00 - 0.02 K/cu mm | [facility] | | | | | SERVICES, CORE | + + + + + + + | Specimen | + + | Blood - Blood | + + + + + + + | Performing | Address | City/State/Zipcode | Phone Number | | Organization | | | | + + + + + | [facility] | [address] | [place] [address] | | | SERVICES, CORE | [address] | | | + + + + + MAGNESIUM, PLASMA (08/30/2018 5:00 AM) + +-------+ + + | Component | Value | Ref Range | Performed At | + +-------+ + + | MAGNESIUM,PLASMA | 2.5 | 1.6 - 2.6 mg/dL | [facility] | | | | | SERVICES, CORE | + +-------+ + + + + | Specimen | + + | Blood - Blood | + + + + + + + | Performing | Address | City/State/Zipcode | Phone Number | | Organization | | | | + + + + + | [facility] | [address] [facility] [address] | [place] [address] | | | SERVICES, CORE | [address] | | | + + + + + BASIC METABOLIC SET (NA, K, CL, TCO2, BUN, CR, GLU, CA) (08/30/2018 5:00 AM) + +---------+ + + | Component | [...] LABORATORY | | (LAB) | | | PHOEBE, CORE | + +---------+ + + | EGFR - | >60 | >60 mL/min | [facility] | | NIUEAN | | | PHOEBE, CORE | + +---------+ + + | EGFR NON | 55 (L) | >60 mL/min | [facility] | | -NIUEAN | | | PHOEBE, CORE | + +---------+ + + | [...] 6 | 4 - 11 mmol/L | [facility] | | | | | SERVICES, CORE | + +---------+ + + | POTASSIUM CMNT | No Hemo | | [facility] | | | | | SERVICES, CORE | + +---------+ + + + + | Specimen | + + | Blood - Blood | + + + + + | Narrative | Performed At | + + + | GFR is estimated using the MDRD equation recommended by the | [facility] | | National Kidney Disease Education Program. [...] | + + + + + | [facility] | [address] | [place] [address] | | | EDGAR SANDHU | SHE[place]LEY [...] EJECTION FRACTION | 57.5 | % | [facility] DEPT OF | | RANGE MEAN VALUE | | | CARDIOLOGY | + + + + + + + + | Narrative | Performed At | + + + | [facility] | [facility] DEPT OF | | [facility] Adult Echocardiography | CARDIOLOGY | | [address] | | | [place] [address] Pt Name: | | | EMRE MENENDEZ Study Date/Time 08/29/2018 / 2:25:40 | | | PMMRN: [id number] Most recent | | | prior: -Acc #: [id number] No. previous | | | echos: 0DOB: 1940 77 years Heart Rate: | | | 70 bpmHeight: 70.0 in Blood | | | Pressure: 128/62 mm/HgWeight: 198.0 | | | lb Gender: | | | MBSA: 2.08 m | | | Order ID: [id number] | | | Study Location: 14CSonographer: Marta Haines [facility] AE, PESonographer | | | 2:Referring Provider: Yesenia Morley Performed: 2D, Color | | | flow, [...] valvular or | | | perivalvular regurgitation. [employer] Fabricating Supervisor 3.0m/s, AT | | | < 100ms, [...] valvular or perivalvular | | | regurgitation. Steel Fabricating Supervisor 3.0m/s, AT < 100ms, PkGr 37, MnGr [...] Report | | | electronically signed by: [id number] Bruno Mars MD (08/30/2018, | | | 9:08:12 AM)Fellow(s) participating in diagnosis: Abbe Lizarraga; | | | Final | | + + + + + | Procedure Note | + + | Interface, Cardiology Results - 08/30/2018 9:08 AM [facility] [employer] | | [facility] Echocardiography Laboratory [facility] | | [place], [place] [address] Pt Name: EMRE Agudelo | | SUSAN Study Date/Time 08/29/2018 / 2:25:40 PMMRN: [id number] Most | | recent prior: -[facility] #: [id number] No. previous echos: 0DOB: 1940 77 | | years Heart Rate: 70 bpmHeight: 70.0 in Blood Pressure: | | 128/62 mm/HgWeight: 198.0 lb Gender: MBSA: 2.08 m | | Order ID: [id number] [facility] | | [facility] AE, PESonographer 2:Referring Provider: Yesenia Morley Performed: [...] no valvular or perivalvular | | regurgitation. Steel Fabricating Supervisor 3.0m/s, AT < 100ms, PkGr 37, MnGr [...] There is no valvular or perivalvular regurgitation. Steel Fabricating Supervisor 3.0m/s, AT < 100ms, PkGr | | [...] and indexed values Report electronically signed by: [id number] | | Bruno Mars MD (08/30/2018, 9:08:12 AM)Fellow(s) participating in diagnosis: Abbe | | Shalen; Final | | | |Additional Findings: There [...] | | | |Report electronically signed by: [id number] Bruno Mars MD (08/30/2018, 9:08:12 AM) | |Fellow(s) participating in diagnosis: Abbe Lizarraga; | | | | | | | | Final | + + + + + + + | Performing | Address | City/State/Zipcode | Phone Number | | Organization | | | | + + + + + | [facility] | [address] | [place], [place] | | | CARDIOLOGY | [address] | [address] | | + + + + + CAPILLARY BLOOD GLUCOSE (NO CHG), POC (08/29/2018 9:44 AM) + +---------+ + + | Component | Value | Ref Range | Performed At | + +---------+ + + | BLOOD GLUCOSE, POC | 129 (H) | 60 - 99 mg/dL | [facility] | | | | | [facility] | | | | | CARE TESTS | + +---------+ + + + + + + + | Performing | Address | City/State/Zipcode | Phone Number | | Organization | | | | + + + + + | [facility] | [address] | [place], [place] | | | [facility] | [address] | [address] | | | TESTS | | | [...] Preliminary: Sharad Saxena MD Dictation initiated: Sharad English | | | MD Hemanth 08/29/2018 12:34 PM | | + + + + + | Procedure Note | + + | Service Account, Radiant Res In Interface - 08/29/2018 12:36 PM [...] + + TROPONIN I, PLASMA (08/29/2018 3:11 AM) + +-------+ + + | Component | Value | Ref Range | Performed At | + +-------+ + + | TROPONIN I | 0.27 | <0.80 ng/mL | [facility] | | | | | SERVICES, CORE | + +-------+ + + + + | Specimen | + + | Blood - Blood | + + + + + + + | Performing | Address | City/State/Zipcode | Phone Number | | Organization | | | | + + + + + | [facility] | [address] | [place] [address] | | | SERVICES, CORE | [address] | | | + + + + + BASIC METABOLIC SET (NA, K, CL, TCO2, BUN, CR, GLU, CA) (08/29/2018 3:11 AM) + +---------+ + + | Component | Value | Ref Range | Performed At | + +---------+ + + | GLUCOSE, PLASMA | 106 (H) | 70 - 99 mg/dL | [facility] | | (LAB) | | | SERVICES, CORE | + +---------+ + + | BUN, PLASMA (LAB) | 19 | 6 - 20 mg/dL | [facility] | | | | | SERVICES, CORE | + +---------+ + + | CREATININE PLASMA | 1.23 | 0.70 - 1.30 mg/dL | [facility] | | (LAB) | | | SERVICES, CORE | + +---------+ + + | EGFR - | >60 | >60 mL/min | [facility] | | NIUEAN | | | PHOEBE, CORE | + +---------+ + + | EGFR NON | 57 (L) | >60 mL/min | [facility] | | -NIUEAN | | | SERVICES, CORE | + +---------+ + + | SODIUM, PLASMA (LAB) | 138 | 136 - 145 mmol/L | [facility] | | | | | SERVICES, CORE | + +---------+ + + | POTASSIUM, PLASMA | 4.0 | 3.4 - 5.0 mmol/L | [facility] | | (LAB) | | | SERVICES, CORE | + +---------+ + + | CHLORIDE, PLASMA | 107 | 97 - 108 mmol/L | [facility] | | (LAB) | | | SERVICES, CORE | + +---------+ + + | TOTAL CO2, PLASMA | 23 | 21 - 32 mmol/L | [facility] | | (LAB) | | | SERVICES, CORE | + +---------+ + + | CALCIUM, PLASMA | 8.2 (L) | 8.6 - 10.2 mg/dL | [facility] | | (LAB) | | | SERVICES, CORE | + +---------+ + + | ANION GAP | 8 | 4 - 11 mmol/L | [facility] [...] | + + + + + | [facility] | [address] | [place] [address] | | | EDGAR SANDHU | SHELLEY [...] | [facility] | [address] | [place], [place] | | | CARDIOLOGY | [address] | [address] | | + + + + + [...] + + + + + | [facility] | [address] | [place] [address] | | | EDGAR SANDHU | SHELLEY [...] | + + + + + | [employer] [facility] | [address] | [place] [address] | | | SERVICES, CORE | [address] | | | + + + + + RAINBOW HOLD TUBE - GREEN TOP (08/28/2018 8:25 PM) + + | Specimen | + + | Blood | + + + + + + + | Performing | Address | City/State/Zipcode | Phone Number | | Organization | | | | + + + + + | [facility] | [address] | [place] [address] | | | EDGAR SANDHU | [address] | | | + + + + + RAINBOW HOLD TUBE - BLUE TOP (08/28/2018 8:25 PM) + + | Specimen | + + | Blood | + + + + + + + | Performing | Address | City/State/Zipcode | Phone Number | | Organization | | | | + + + + + | [facility] | [address] | [place] [address] | | | EDGAR SANDHU | [address] | | | + + + + + BLOOD BANK HOLD TUBE - DON T PROCESS (08/28/2018 8:25 PM) + + + + + | Component | Value | Ref Range | Performed At | + + + + + | SPECIMEN COLLECTED, | Sample received with | | [facility] | | HELD | marvin label/volume to | | SERVICES, | | [...] | + + + + + | [facility] | [address] | [place] [address] | | | SERVICES, | [address] | | | | TRANSFUSION MEDICINE | | | | + + + + + TROPONIN I, PLASMA (08/28/2018 8:25 PM) + +-------+ + + | Component | Value | Ref Range | Performed At | + +-------+ + + | TROPONIN I | 0.30 | <0.80 ng/mL | [facility] | | | | | PHOEBE, EDGAR | + +-------+ + + + + | Specimen | + + | Blood - Blood | + + + + + + + | Performing | Address | City/State/Zipcode | Phone Number | | Organization | | | | + + + + + | [facility] | [address] | [place] [address] | | | SERVICES, CORE | [address] | | | + + + + + CONFIRMATORY ABO/RH (08/28/2018 8:25 PM) + + + + + | Component | Value | Ref Range | Performed At | + + + + + | [facility] | O | | [facility] | | | | | SERVICES, [...] + | [facility] | [address] | [place] [address] | | | SERVICES, | [address] | | | | TRANSFUSION MEDICINE | | | | + + + + + ANTIBODY SCREEN (08/28/2018 8:25 PM) + + + + + | Component | Value | Ref Range | Performed At | + + + + + | Antibody Screen | Negative | | [facility] | | | | | SERVICES, [...] | + + + + + | [facility] | [address] [place] [address] | [place] [id number] | | | PHOEBE | [address] | | | | TRANSFUSION MEDICINE | | | | + + + + + CBC (HEMOGRAM) ONLY (08/28/2018 8:25 PM) + + + + + | Component | Value | Ref Range | Performed At | + + + + + | WHITE CELL COUNT | 10.72 | 3.50 - 10.80 K/cu mm | [facility] | | | | | PHOEBE CORE | + + + + + | RED CELL COUNT | 4.46 (L) | 4.50 - 6.00 M/cu mm | [facility] | | | | | SERVICES, CORE | + + + + + | HEMOGLOBIN | 14.2 | 13.5 - 17.5 g/dL | [facility] | | | | | SERVICES, CORE | + + + + + | HEMATOCRIT | 44.2 | 41.0 - 53.0 % | [facility] | | | | | SERVICES, CORE | + + + + + | MCV | 99.1 | 80.0 - 100.0 fL | [facility] | | | | | SERVICES, CORE | + + + + + | MCHC | 32.1 | 32.0 - 36.0 g/dL | [facility] | | | | | SERVICES, CORE | + + + + + | RDW SD | 51.2 (H) | 35.1 - 46.3 fL | [facility] | | | | | SERVICES, CORE | + + + + + | PLATELET COUNT | 188 | 150 - 400 K/cu mm | [facility] | | | | | SERVICES, CORE | + + + + + | MPV | 12.0 | 9.7 - 12.3 fL | [facility] | | | | | SERVICES, CORE | + + + + + | NRBC% | 0.0 | 0.0 - 0.3 % | [facility] | | | | | SERVICES, CORE | + + + + + | NRBC# | 0.00 | 0.00 - 0.02 K/cu mm | [facility] | | | | | SERVICES, CORE | + + + + + + + | Specimen | + + | Blood - Blood | + + + + + + + | Performing | Address | City/State/Zipcode | Phone Number | | Organization | | | | + + + + + | [facility] | [address] | [place] [address] | | | SERVICES, CORE | [address] [...] | + + + + + | [facility] | [address] | [place] [address] | | | SERVICES, | [address] | | | | TRANSFUSION MEDICINE | | | | + + + + + COAGULOPATHY PANEL (INR,APTT,FIBRINOGEN) (08/28/2018 8:25 PM) + +-------+ + + | Component | Value | Ref Range | Performed At | + +-------+ + + | INR | 1.00 | 0.90 - 1.20 INR | [facility] | | | | | SERVICES, CORE | + +-------+ + + | APTT | 28.9 | 26.0 - 36.0 seconds | [facility] | | | | [...] + | [facility] | [address] | [place] [address] | | | PHOEBE, EDGAR | [address] | | | + + + + + in this encounter Visit Diagnoses Not on filein this encounter Admitting Diagnoses + + | Diagnosis | + + | Closed fracture of left tibia and fibula, initial encounter | + + | Tibia fracture | + + Administered Medications + +--------+ + +------+------+ | Medication Order | MAR | Action | Dose | Rate | Site | | | Action | Date | | | | + +--------+ + +------+------+ | acetaminophen (TYLENOL) tablet | Given | | 1,000 mg | | | | 1,000 mg 1,000 mg, oral, THREE | | 9 15:51 | | | | | TIMES DAILY, First dose on Sun | | PST | | | | | 08/29/18 at 0900, Until | | | | | | | Discontinued | | | | | | + +--------+ + +------+------+ +-------+ + +---+---+ | Given | | 1,000 mg | | | | | 9 21:51 | | | | | | PST | | | | +-------+ + +---+---+ | Given | | 1,000 mg | | | | | 9 08:32 | | | | | | PST | | | | +-------+ + +---+---+ +---+---+ | | | +---+---+ + +-------+ +--------+---+---+ | acyclovir (ZOVIRAX) tablet 400 | Given | | 400 mg | | | | mg 400 mg, oral, FOUR TIMES | | 9 12:53 | | | | | DAILY NEEDED, Starting Wed | | PST | | | | | 09/01/18 at 1230, Until Day | | | | | | | 09/02/18 at 2026, symptomatic oral | | | | | | | lesion | | | | | | + +-------+ +--------+---+---+ +---+---+ | | | +---+---+ + +-------+ +-------+---+---+ | bisacodyl (DULCOLAX) | Given | | 10 mg | | | | suppository 10 mg 10 mg, rectal, | | 9 06:02 | | | | | DAILY NEEDED, Starting Sun | | PST | | | | | 08/29/18 at 0008, Until Day | | | | | | | 09/02/18 at 2026, 2nd line for no | | | | | | | BM in past 2 days or if no | | | | | | | response to MIRALAX or if patient | | | | | | | unable to tolerate oral | | | | | | + +-------+ +-------+---+---+ +-------+ +-------+---+---+ | Given | | 10 mg | | | | | 9 08:32 | | | | | | PST | | | | +-------+ +-------+---+---+ +---+---+ | | | +---+---+ + +-------+ +------+---+---+ | bisoprolol (ZEBETA) tablet 5 mg | Given | | 5 mg | | | | 5 mg, oral, DAILY, First dose | | 9 08:09 | | | | | on 08/29/18 at 1300, Until | | PST | | | | | Discontinued | | | | | | + +-------+ +------+---+---+ +-------+ +------+---+---+ | Given | | 5 mg | | | | | 9 09:16 | | | | | | PST | | | | +-------+ +------+---+---+ | Given | | 5 mg | | | | | 9 08:32 | | | | | | PST | | | | +-------+ +------+---+---+ +---+---+ | | | +---+---+ + +-------+ +-------+---+---+ | bupivacaine-EPINEPHrine | Given | | 10 mL | | | | (MARCAINE-EPINEPHRINE) 0.5 | | 9 17:54 | | | | | %-1:200,000 injection | | PST | | | | | INTRAPROCEDURE PRN, Starting Mon | | | | | | | 08/30/18 at 1754, Until Mon | | | | | | | 08/30/18 at 1806 | | | | | | + +-------+ +-------+---+---+ +---+---+ | | | +---+---+ + +-------+ +-------+---+---+ | diphenhydrAMINE (BENADRYL) | Given | | 25 mg | | | | capsule 25 mg 25 mg, oral, EVERY | | 9 21:34 | | | | | 12 HOURS NEEDED, Starting Sun | | PST | | | | | 08/29/18 at 1849, Until Day | | | | | | | 09/02/18 at 2026, rash, itching | | | | | | + +-------+ +-------+---+---+ +---+---+ | | | +---+---+ + +-------+ +-------+---+---------+ | enoxaparin (LOVENOX) injection | Given | | 40 mg | | Abdomen | | 40 mg 40 mg, subcutaneous, EVERY | | 9 21:33 | | | | | EVENING, First dose on e | | PST | | | | | 08/31/18 at 2100, Until | | | | | | | Discontinued | | | | | | + +-------+ +-------+---+---------+ +-------+ +-------+---+---------+ | Given | | 40 mg | | Abdomen | | | 9 20:20 | | | | | | PST | | | | +-------+ +-------+---+---------+ +---+---+ | | | +---+---+ + + + +---+---+---+ | lactated ringers IV 75 mL/hr, | given by | | | | | | intravenous, CONTINUOUS, Starting | | 9 18:12 | | | | | 08/30/18 at 0000, Until Day | anesthes | PST | | | | | 09/02/18 at 7 | iology | | | | | + + + +---+---+---+ + + + + +---+ | Restarted | | 75 mL/hr | 75 mL/hr | | | | 9 18:51 | | | | | | PST | | | | + + + + +---+ | Restarted | | 75 mL/hr | 75 mL/hr | | | | 9 03:50 | | | | | | PST | | | | + + + + +---+ +---+---+ | | | +---+---+ + +-------+ +--------+---+---+ | levothyroxine tablet 25 mcg 25 | Given | | 25 mcg | | | | mcg, oral, BEFORE BREAKFAST, | | 9 06:02 | | | | | First dose on Thu09/01/18 at | | PST | | | | | 0630, Until Discontinued | | | | | | + +-------+ +--------+---+---+ +-------+ +--------+---+---+ | Given | | 25 mcg | | | | | 9 06:59 | | | | | | PST | | | | +-------+ +--------+---+---+ +---+---+ | | | +---+---+ + +-------+ +--------+---+---+ | losartan (COZAAR) tablet 100 mg | Given | | 100 mg | | | | 100 mg, oral, DAILY, First dose | | 9 09:15 | | | | | on Thu08/31/18 at 0900, Until | | PST | | | | | Discontinued | | | | | | + +-------+ +--------+---+---+ +-------+ +--------+---+---+ | Given | | 100 mg | | | | | 9 08:32 | | | | | | PST | | | | +-------+ +--------+---+---+ +---+---+ | | | +---+---+ + +-------+ +------+---+---+ | oxyCODONE (immediate release) | Given | | 5 mg | | | | (ROXICODONE) tablet 5-10 mg 5-10 | | 9 03:13 | | | | | mg, oral, EVERY 3 HOURS | | PST | | | | | NEEDED, Starting [facility] 08/31/18 at | | | | | | | 2130, Until [facility] 09/02/18 at 2026, | | | | | | | moderate pain refractory to | | | | | | | non-opiates | | | | | | + +-------+ +------+---+---+ +-------+ +-------+---+---+ | Given | | 10 mg | | | | | 9 06:59 | | | | | | PST | | | | +-------+ +-------+---+---+ | Given | | 10 mg | | | | | 9 10:50 | | | | | | PST | | | | +-------+ +-------+---+---+ +---+---+ | | | +---+---+ + +-------+ +------+---+---+ | polyethylene glycol (MIRALAX) | Given | | 34 g | | | | packet 34 g 34 g, oral, THREE | | 9 03:43 | | | | | TIMES DAILY NEEDED, Starting | | PST | | | | | 08/29/18 at 0008, Until Day | | | | | | | 09/02/18 at 2026, 1st line - for | | | | | | | no BM for 2 days | | | | | | + +-------+ +------+---+---+ +---+---+ | | | +---+---+ + +-------+ +-------+---+---+ | pravastatin (PRAVACHOL) tablet | Given | | 40 mg | | | | 40 mg 40 mg, oral, AT BEDTIME, | | 9 21:59 | | | | | First dose on 08/29/18 at | | PST | | | | | 2200, Until Discontinued | | | | | | + +-------+ +-------+---+---+ +-------+ +-------+---+---+ | Given | | 40 mg | | | | | 9 21:32 | | | | | | PST | | | | +-------+ +-------+---+---+ | Given | | 40 mg | | | | | 9 21:50 | | | | | | PST | | | | +-------+ +-------+---+---+ +---+---+ | | | +---+---+ + +-------+ + +---+---+ | senna-docusate (SENOKOT S) | Given | | 1 tablet | | | | 8.6-50 mg 1 tablet 1 tablet, | | 9 09:49 | | | | | oral, TWICE DAILY, First dose on | | PST | | | | | 08/29/18 at 0900, Until | | | | | | | Discontinued | | | | | | + +-------+ + +---+---+ +-------+ + +---+---+ | Given | | 1 tablet | | | | | 9 20:20 | | | | | | PST | | | | +-------+ + +---+---+ | Given | | 1 tablet | | | | | 9 08:32 | | | | | | PST | | | | +-------+ + +---+---+ +---+---+ | | | +---+---+ + +-------+ +--------+---+---+ | tamsulosin (FLOMAX) capsule 0.4 | Given | | 0.4 mg | | | | mg 0.4 mg, oral, DAILY, First | | 9 09:15 | | | | | dose on 08/29/18 at 1215, | | PST | | | | | Until Discontinued | | | | | | + +-------+ +--------+---+---+ +-------+ +--------+---+---+ | Given | | 0.4 mg | | | | | 9 09:49 | | | | | | PST | | | | +-------+ +--------+---+---+ | Given | | 0.4 mg | | | | | 9 08:32 | | | | | | PST | | | | +-------+ +--------+---+---+ +---+---+ | | | +---+---+ in this encounter
--- OUTSIDE RECORDS SUMMARY | ~2018-10-12 | XMS | Encounter Summary ---
Demographics + + + | Address | [address] | | | [place] [address] | + + + | Home Phone | | + + + | Preferred Language | Unknown | + + + | Marital Status | | + + + | Church Affiliation | LUT | + + + | Race | White | + + + | Ethnic Group | Not or | + + + Author + + + | Author | [facility] | + + + | Organization | [facility] | + + + | Address [...] Team Providers + +------+ + | Care Fur Pointer Name | Role | Phone | + +------+ + | Ilia Villegas MD | PCP | | + +------+ + Encounter Details +--------+ + + + + | Date | Type | Department | Care Team | Description | +--------+ + + + + | 08/30/ | Procedure | 6A Intra Op [facility] | | | | 2019 | Pass | [facility] | | | | | | Admitting Desk | | | | | | Located on the 9 | | | | | | floor [address] | | | | | | [facility] | | | | | | [place], [place] | | | | | | [address] | | | +--------+ + + + [...] [address] | | | | | | [place], [place] | | | | | | [address] | | | | | | [phone] | | | | | | | | +--------+---------+ + + + as of this encounter Visit Diagnoses Not on filein this encounter"
--- OUTSIDE RECORDS SUMMARY | ~2018-10-12 | XMS | Clinical Summary ---
Demographics + + + | Address | [address] | | | [place] [address] | + + + | Home Phone | | + + + | Preferred Language | Unknown | + + + | Marital Status | | + + + | Voodoo Affiliation | LUT | + + + [...] Team Providers + +------+ + | Care Aerospace Engineer Name | Role | Phone | + +------+ + | Ilia Villegas MD | PP | | + +------+ + Source Comments BRETT is fully live on both EpicCare Ambulatory and EpicCare InPatient.[facility] (formerly [facility])[3] Allergies + + + + + + [...] SpencerMRN: | | | | | | [id number] | | | : | | | [id number] | | | dmission | | | [...] | | | call:- | | | [phone] | | | 00 during | | | business | | | hours | | | (8:00am - | | | 4:30pm)- | | | [phone] | | | 11 if after | [...] | | someone to | | | 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..] | | | | | | | [id number]: Qty: 1 on | | | | [...] | | | | | | | [id number]: Qty: 1 on | | | | [...] | | | | | | | [id number]: Qty: 1 on | | | | [...] | | | | | | | [id number]: Qty: 1 on | | | | [...] | | | | | | | [id number]: Qty: 1 on | | | | [...] | | | | | | | [id number]: Qty: 3 | | | | | [...] | | | | | | | [id number]: Qty: 1 on | | | | [...] | | | | | | | [id number]: Qty: 1 on | | | | [...] Surgeon: Richard Gonzalez MD | | | Interlocking Installer(s): kwame barrientos MD Preoperative Diagnosis: 1. left [...] [facility] | [address] | [place] | | | [facility] | [address] | [address] | | | TESTS | | | | + + + + + PROCEDURE NOTE (08/30/2018 6:08 PM) + + + | Narrative | Performed At | + + + | Kwame Barrientos MD 08/30/2018 6:20 PM [facility] & | | | [facility] Department of Orthopaedics & Rehabilitation | | | BRIEF OPERATIVE NOTE Patient: /Age: MRN: CSN: | | | Date: Admission Date: Hospital Day: Orthopaedic | | | Attending: Emre Menendez 1940 77 y.o. [id number] [phone] | | | 08/30/2018 08/28/2018 2 Richard Gonzalez MD | | | Attending | | | Surgeon: Richard Gonzalez MD Interlocking Installer(s): MD Melchor MARTINEZ | | | MD [...] ORTHO TRAUMA & FRACTURE, | | | [phone] Please call the clinic to make a follow up appointment | | | in approximately 2 weeks with Thao Hodge 8. Anticipated | | | Discharge: 2-3 days KWAME BARRIENTOS MD | | | [facility] | | | [place] Department of Orthopaedics & Rehabilitation [address] [place] [address] | | | [facility] Mail Code: OP31 [facility] [address] | | | | | + + [...] | 3.50 - 10.80 K/cu mm | [facility] | | | | | SERVICES CORE | + + + + + | RED CELL COUNT | 4.09 (L) | 4.50 - 6.00 M/cu mm | [facility] | | | | | SERVICES, [...] (H) | 35.1 - 46.3 fL | [facility] | | | | | SERVICES, CORE | + + + + + | PLATELET COUNT | 137 (L)Comment: Few | 150 - 400 K/cu mm | [facility] | | | platelet clumps present. | | SERVICES, CORE | | | Macroplatelets present. | | | + + + + + | MPV | 11.5 | 9.7 - 12.3 fL | [facility] | | | | | SERVICES, CORE | + + + + + | NRBC% | 0.0 | 0.0 - 0.3 % | [facility] | | | | | SERVICES, CORE | + + + + + | NRBC# | 0.00 | 0.00 - 0.02 K/cu mm | [facility] | | | | | PHOEBE, [place] | + + + + + + + | Specimen | + + | Blood - Blood | + + + + + + + | Performing | Address | City/State/Zipcode | Phone Number | | Organization | | | | + + + + + | [facility] | [address] | [place] [address] | | | [place] | [address] [...] >60 mL/min | [facility] | | [address] | | | SERVICES, CORE | + +---------+ + + | EGFR NON | 55 (L) | >60 mL/min | [facility] | | -[address] [place] | | | SERVICES, CORE | + [...] | + + + + + | [facility] | [address] | [place] [address] | | | SERVICES, [place] | [address] | | | + + + + + MAGNESIUM, PLASMA (08/30/2018 5:00 AM) + +-------+ + + | Component | Value | Ref Range | Performed At | + +-------+ + + | MAGNESIUM,PLASMA | 2.5 | 1.6 - 2.6 mg/dL | [facility] | | | | | [address] | + +-------+ + + + + | Specimen | + + | Blood - Blood | + + + + + + + | Performing | Address | City/State/Zipcode | Phone Number | | Organization | | | | + + + + + | [facility] | [address] | [place] [address] | | | SERVICES, CORE | [place] [...] Performed At | + + + | [facility] | [facility] | | [facility] | CARDIOLOGY | | Laboratory [address] [place] [address] | | | [place] [address] Pt Name: | | | EMRE MENENDEZ Study Date/Time 08/29/2018 / 2:25:40 | | | PMMRN: [id number] Most recent | | | prior: -Acc #: [id number] No. previous | | | echos: 0DOB: 1940 77 years Heart Rate: | | | 70 bpmHeight: 70.0 in Blood | | | Pressure: 128/62 mm/HgWeight: 198.0 | | | lb Gender: | | | MBSA: 2.08 m | | | Order ID: [id number] | | | Study Location: 14CSonographer: Marta Haines [facility] AE, PESonographer | | | [...] valvular or | | | perivalvular regurgitation. Fitness Technician 3.0m/s, AT | | | < 100ms, [...] valvular or perivalvular | | | regurgitation. Fitness Technician 3.0m/s, AT < 100ms, PkGr 37, MnGr [...] Report | | | electronically signed by: [id number] Bruno Mars MD (08/30/2018, | | | 9:08:12 AM)Fellow(s) participating in diagnosis: Abbe Lizarraga; | | | Final | | + + + + + | Procedure Note | + + | Interface, Cardiology Results - 08/30/2018 9:08 AM [facility] | | [facility] Echocardiography Laboratory [address] [place] [address] | | [place], [place] [address] Pt Name: EMRE Agudelo | | SHON Study Date/Time 08/29/2018 / 2:25:40 PMMRN: [id number] Most | | recent prior: -Acc #: [id number] No. previous echos: 0DOB: 1940 77 | | years Heart Rate: 70 bpmHeight: 70.0 in Blood Pressure: | | 128/62 mm/HgWeight: 198.0 lb Gender: MBSA: 2.08 m | | Order ID: [id number] [facility] | | [facility] AE, PESonographer 2:Referring Provider: Yesenia Morley [...] no valvular or perivalvular | | regurgitation. Fitness Technician 3.0m/s, AT < 100ms, PkGr 37, MnGr [...] There is no valvular or perivalvular regurgitation. Fitness Technician 3.0m/s, AT < 100ms, PkGr | | [...] and indexed values Report electronically signed by: [id number] | | Bruno Mars MD (08/30/2018, 9:08:12 [...] | | | |Report electronically signed by: [id number] Bruno Mars MD (08/30/2018, 9:08:12 AM) | |Fellow(s) participating in diagnosis: Abbe Lizarraga; | | | | | | | | Final | + + + + + + + | Performing | Address | City/State/Zipcode | Phone Number | | Organization | | | | + + + + + | [facility] | [address] | [place], [place] | | | CARDIOLOGY | [address] | [address] | | + + + + + [...] Note | + + | Service Account, [employer] In Interface - 08/29/2018 12:36 PM [...] I | 0.27 | <0.80 ng/mL | [facility] | | | | | SERVICES, CORE | + +-------+ + + + + | Specimen | + + | Blood - Blood | + + + + + + + | Performing | Address | City/State/Zipcode | Phone Number | | Organization | | | | + + + + + | [facility] | [address] | [place] [address] | | | [place] | [address] [...] [facility] | [address] | [place], [place] | | | CARDIOLOGY | [address] | [address] | | + + + + + [...] [facility] | [address] | [place] [address] | | | SERVICES, [place] | [address] [...] | + + + + + | [facility] | [address] | [place] [address] | | | SERVICES, CORE | [place] [...] [facility] | [address] | [place] [address] | | | SERVICES, CORE | [address] [...] | + + + + + | [facility] | [address] | [place] [address] | | | SERVICES, CORE | [address] | | | + + + + + BLOOD BANK HOLD TUBE - DON T PROCESS (08/28/2018 8:25 PM) + + + + + | Component | Value | Ref Range | Performed At | + + + + + | SPECIMEN COLLECTED, | Sample received with | | [facility] | | HELD | adeq label/volume [...] [facility] | [address] | [place] [address] | | | SERVICES, | [address] | | | | TRANSFUSION MEDICINE | | | | + + + + + CONFIRMATORY ABO/RH (08/28/2018 8:25 PM) + + + + + | Component | Value | Ref Range | Performed At | + + + + + | [facility] | O | | [facility] | | | | | SERVICES, [...] [facility] | [address] | [place] [address] | | | SERVICES, | [address] | | | | TRANSFUSION MEDICINE | | | | + + + + + COAGULOPATHY PANEL (INR,APTT,FIBRINOGEN) (08/28/2018 8:25 PM) + +-------+ + + | Component | Value | Ref Range | Performed At | + +-------+ + + | INR | 1.00 | 0.90 - 1.20 INR | [facility] | | | | | SERVICES, CORE | + +-------+ + + | APTT | 28.9 | 26.0 - 36.0 seconds | [facility] | | | | | SERVICES, [...] [facility] | [address] | [place] [address] | | | SERVICES, CORE | [address] | | | + + + + + ANTIBODY SCREEN (08/28/2018 8:25 PM) + + + + + | Component | Value | Ref Range | Performed At | + + + + + | Antibody Screen | Negative | | [facility] | | | | | SERVICES, [...] | + + + + + | [facility] | [address] | [place] [address] | | | SERVICES, | [address] [...] [facility] | [address] | [place] [address] | | | SERVICES, | [address] [...] | re | [address] | [place] [address] | | | B | | | | | + +--------+ +--------+ + + | [employer] [place] | MUTUAL | [id number] | Indankush | [phone] | [employer] [place] | | MEDICARE SUPPL | OF | | ity | [address] | | | [place] | | | | [phone] | | | MEDICA | | | [...] | 1941 | [phone] | [place] [address] | | | elver | | | 1631 | | + +--------+ +--------+ + +
--- OUTSIDE RECORDS SUMMARY | ~2018-10-12 | XMS | Encounter Summary ---
Demographics + + + | Address | [address] | | | [place] [address] | + + + | Home Phone | | + + + | Preferred Language | Unknown | + + + | Marital Status | | + + + | Buddhism Affiliation | 1028 | + + + | Race | Unknown | + + + | Ethnic Group | Unknown | + + + Author + + + | Author | [facility] [employer] | + + + | Organization | [facility] [employer] | + + + | Address | Unknown | + + + | Phone | Unavailable | + + + Support + + + + + | Name | Relationship | Address | Phone | + + + + + | Demi Menendez I | ECON | [address] | | | | | [place] | | | | | [address] | | + + + + + | Héctor Francois | ECON | Unknown | | + + + + + Care Team Providers + +------+ + | Care Plant Puller Name | Role | Phone | + +------+ + | Ilia Villegas MD | PCP | | + +------+ + Reason for Visit + + + | Reason | Comments | + + + | Medication Refill | | + + + Encounter Details +--------+--------+ + + + | Date | Type | Department | Care Team | Description | +--------+--------+ + + + | 08/08/ | Refill | [facility] | Gloria Chavez, | Medication Refill | | 2018 | | Cardiology [place] | [address] | | | | | [address] | [address], | | | | | [facility] [address] | [place] [address] | | | | | [place] [address] | [phone] | | | | | [phone] | | | +--------+--------+ + + + Social History + + + [...] + + | 01/19/ | Office | Cardiology | Gloria Chavez, | | | 2018 | Visit | | MD Valentino Cortez | | | | | | Dr [address], | | | | | | [place] [address] | | | | | | [phone] | | | | | | | | +--------+---------+ + + + as of this encounter Visit Diagnoses Not on filein this encounter"
--- OUTSIDE RECORDS SUMMARY | ~2018-10-12 | XMS | Encounter Summary ---
Demographics + + + | Address | [address] | | | [place] [address] | + + + | Home Phone | | + + + | Preferred Language | Unknown | + + + | Marital Status | | + + + | Rastafari Affiliation | LUT | + + + | Race | White | + + + | Ethnic Group | Not or | + + + Author + + + | Author | [facility] | + + + | Organization | [facility] | + + + | Address [...] Team Providers + +------+ + | Care Agency Director Name | Role | Phone | + +------+ + | Ilia Villegas MD | PCP | | + +------+ + Reason for Visit AUTH/CERT +--------+--------+ + + + + | Status | Reason | Specialty | Diagnoses / | Referred By | Referred To | | | | | Procedures | Contact | Contact | +--------+--------+ + + + + | | | | | | | +--------+--------+ + + + + Encounter Details +--------+ + + + + | Date | Type | Department | Care Team | Description | +--------+ + + + + | 08/30/ | Anesthesia | 6A Intra Op [facility] | Nidhi High MD | | | 2019 | Event | [facility] | [address] [facility] | | | | | Admitting Desk | [facility] | | | | | Located on the 9 | [place], [place] | | | | | floor [address] [facility] | [address] | | | | | [facility] | [phone] | | | | | [place], [place] | | | | | | [address] | | | +--------+ + + + + Anesthesia Record + + + + + | Procedure Name | Responsible | Anesthesia Start | Anesthesia Stop Time | | | Anesthesiologist | Time | | + + + + + | PROXIMAL TIBIA | Casey Cason MD | 08/30/18 1554 | 08/30/18 1814 | | (PLATEAU) OPEN | | | | | REDUCTION INTERNAL | | | | | FIXATION (Left ) | | | | + + + + + +----+---+ + + | Da | T | Event | Comment | | te | i | | | | | m | | | | | e | | | +----+---+ + + | 02 | 1 | Pt. Check | Prior to anesthesia start, pt. Identified, examined, chart | | /2 | 5 | | reviewed, PARQ held, anesthetic plan made or approved by | | 5/ | 0 | | attending anesthesiologist. NPO status confirmed as appropriate | | 20 | 7 | | for procedure Preoperative evaluation: unchanged | | 19 | | | | +----+---+ + + | | 1 | Eq Check | Anesthesia machine checked Equipment verified | | | 5 | | | | | 4 | | | | | 7 | | | +----+---+ + + | | 1 | An Start | | | | 5 | | | | | 5 | | | | | 4 | | | +----+---+ + + | | 1 | An Start | | | | 5 | Data | | | | 5 | | | | | 7 | | | +----+---+ + + | | 1 | Vitals | Monitors applied Vital signs checked Patient ready for anesthesia | | | 6 | Checked | | | | 0 | | | | | 4 | | | +----+---+ + + | | 1 | ETT | | | | 6 | | | | | 1 | | | | | 0 | | | +----+---+ + + | | 1 | Ready | | | | 6 | | | | | 1 | | | | | 1 | | | +----+---+ + + | | 1 | Intraop and | - Patient/Allergies/Procedure - Relevant PMH - Relevant data | | | 6 | Med | (labs/imaging) - Anesthetic (airway, infusions, drug redoses) - | | | 2 | Handoff | Lines/Drains - I/O - Current Phase and significant events - | | | 1 | | Emergence/dispo plans, post-op concerns | +----+---+ + + | | 1 | Abx | | | | 6 | Administere | | | | 2 | d | | | | 7 | | | +----+---+ + + | | 1 | Quick Note | BP cuff cable under OR bed. Unable to read BP. Cable readjusted | | | 6 | | | | | 3 | | | | | 6 | | | +----+---+ + + | | 1 | Incision | | | | 6 | | | | | 4 | | | | | 5 | | | +----+---+ + + | | 1 | Surgery end | | | | 8 | | | | | 0 | | | | | 1 | | | +----+---+ + + | | 1 | An Extubate | Neuromuscular function Intact. Pharynx suctioned. Patient obeys | | | 8 | | commands. Adequate pulmonary mechanics. | | | 0 | | | | | 1 | | | +----+---+ + + | | 1 | an stop | | | | 8 | data | | | | 0 | | | | | 1 | | | +----+---+ + + | | 1 | PACU Rpt | | | | 8 | Given | | | | 1 | | | | | 4 | | | +----+---+ + + | | 1 | Anesthesia | | | | 8 | End | | | | 1 | | | | | 4 | | | +----+---+ + + +------+ | Meds | +------+ + + + | Name | Total | + + + | fentaNYL | 125 mcg | + + + | lidocaine 2% | 80 mg | + + + | propofol | 100 mg | + + + | succinylcholine | 80 mg | + + + | ePHEDrine | 10 mg | + + + | PHENYLEPHrine | 400 mcg | + + + | ceFAZolin | 2,000 mg | + + + | vasopressin | 3 Units | + + + | dexamethasone | 4 mg | + + + | ondansetron | 4 mg | + + + | HYDROmorphone | 1 mg | + + + | lactated ringers IV | 1,200 mL | + + + + + | Name | + + | O2 FR Avance (Total Liters) | + + | Insp Sevo | + + | Et Sevo | + + | Insp Iso | + + | Et Iso | + + + + | No blood administrations on file. | + + +--------+ + + + | Type | Details | Placement | Removal | +--------+ + + + | Periph | Left; Hand; 18 g; Positive | 08/30/18 1623 by | | | eral | | | | | IV | | | | +--------+ + + + | Periph | 08/28/18; Other hospital; Left; | 08/28/18 0000 by | | | eral | Antecubital; 20 g; Positive | Deann Greco RN | | | IV | | | | +--------+ + + + | Incisi | 08/30/18; 1650; DF; Left; knee | 08/30/18 1650 by | | | on | | Natalya Diallo RN | | +--------+ + + + | ETT | 08/30/18; 1610 (created via | 08/30/18 1610 by | 08/30/181800 by | | | procedure documentation); 7.5; | Mari Sinclair CRNA | Mari Sinclair CRNA | | | 08/30/18; 1800 | | | +--------+ + + + | Urethr | 08/30/18; 1630; ASHLEY; Cristiane; 16 | 08/30/18 163 by | 08/30/181816 by | | al | Fr.; 10 mL; 08/30/18; 1816 | Natalya Diallo RN | Natalya Diallo RN | | Cathet | | | | | er | | | | +--------+ + + + in this encounter Social History + +-------+ +--------+ + | [...] [address] | | | | | | [place], [place] | | | | | | [address] | | | | | | [phone] | | | | | | | | +--------+---------+ + + + as of this encounter Genesis ROBERSON (08/30/2018 4:24 PM) + + + | [...] | | leak: No Narrative Attending: CASEY CASON First | | | attempt with mac 4 Arytenoids only visualized. Attempt to pass | | | styletted ett thru cords, they were not open. Glidescope used, | | | grade 2 view. ett passed easily. Sats stable throughout intubation | | | Performed by MARI TURNER | | + + + in this encounter Visit Diagnoses Not on filein this encounter Administered Medications + +--------+ + +------+------+ | Medication Order | MAR | Action | Dose | Rate | Site | | | Action | Date | | | | + +--------+ + +------+------+ | ceFAZolin (ANCEF) injection | Given | | 2,000 mg | | | | INTRAPROCEDURE PRN, Starting Mon | | 9 16:27 | | | | | 08/30/18 at 1627, Until Mon | | PST | | | | | 08/30/18 at 1804 | | | | | | + +--------+ + +------+------+ +---+---+ | | | +---+---+ + +-------+ +------+---+---+ | dexamethasone (DECADRON) | Given | | 4 mg | | | | injection INTRAPROCEDURE PRN, | | 9 16:32 | | | | | Starting 08/30/18 at 1632, | | PST | | | | | Until Thu08/30/18 at 1804 | | | | | | + +-------+ +------+---+---+ +---+---+ | | | +---+---+ + +-------+ +------+---+---+ | ePHEDrine injection | Given | | 5 mg | | | | INTRAPROCEDURE PRN, Starting Mon | | 9 16:13 | | | | | 08/30/18 at 1613, Until Mon | | PST | | | | | 08/30/18 at 1804 | | | | | | + +-------+ +------+---+---+ +-------+ +------+---+---+ | Given | 201 | 5 mg | | | | | 9 16:16 | | | | | | PST | | | | +-------+ +------+---+---+ +---+---+ | | | +---+---+ + +-------+ +--------+---+---+ | fentaNYL (SUBLIMAZE) injection | Given | | 50 mcg | | | | INTRAPROCEDURE PRN, Starting Mon | | 9 16:00 | | | | | 08/30/18 at 1600, Until Mon | | PST | | | | | 08/30/18 at 1804 | | | | | | + +-------+ +--------+---+---+ +-------+ +--------+---+---+ | Given | | 50 mcg | | | | | 9 16:06 | | | | | | PST | | | | +-------+ +--------+---+---+ | Given | | 25 mcg | | | | | 9 18:13 | | | | | | PST | | | | +-------+ +--------+---+---+ +---+---+ | | | +---+---+ + +-------+ +--------+---+---+ | HYDROmorphone (DILAUDID) | Given | | 0.5 mg | | | | injection INTRAPROCEDURE PRN, | | 9 16:55 | | | | | Starting Thu08/30/18 at 1813, | | PST | | | | | Until Thu08/30/18 at 1812 | | | | | | + +-------+ +--------+---+---+ +-------+ +--------+---+---+ | Given | | 0.5 mg | | | | | 9 18:13 | | | | | | PST | | | | +-------+ +--------+---+---+ +---+---+ | | | +---+---+ + + + +---+---+---+ | lactated ringers IV 75 mL/hr, | given by | | | | | | intravenous, CONTINUOUS, Starting | | 9 18:12 | | | | | 08/30/18 at 0000, Until Day | anesthes | PST | | | | | 09/02/18 at 2027 | iology | | | | | [...] | | +---+---+ + +-------+ +-------+---+---+ | lidocaine (XYLOCAINE MPF) 2 % | Given | | 80 mg | | | | (20 mg/mL) injection | | 9 16:06 | | | | | INTRAPROCEDURE PRN, Starting Mon | | PST | | | | | 08/30/18 at 1606, Until Mon | | | | | | | 08/30/18 at 1804 | | | | | | + +-------+ +-------+---+---+ +---+---+ | | | +---+---+ + +-------+ +------+---+---+ | ondansetron (ZOFRAN) injection | Given | | 4 mg | | | | INTRAPROCEDURE PRN, Starting Mon | | 9 17:45 | | | | | 08/30/18 at 1745, Until Mon | | PST | | | | | 08/30/18 at 1804 | | | | | | + +-------+ +------+---+---+ +---+---+ | | | +---+---+ + +-------+ +---------+---+---+ | PHENYLEPHrine 100 mcg/mL IV | Given | | 200 mcg | | | | syringe INTRAPROCEDURE PRN, | | 9 16:11 | | | | | Starting 08/30/18 at 1611, | | PST | | | | | Until 08/30/18 at 1804 | | | | | | + +-------+ +---------+---+---+ +-------+ +---------+---+---+ | Given | | 100 mcg | | | | | 9 16:13 | | | | | | PST | | | | +-------+ +---------+---+---+ | Given | | 100 mcg | | | | | 9 16:14 | | | | | | PST | | | | +-------+ +---------+---+---+ +---+---+ | | | +---+---+ + +-------+ +-------+---+---+ | propofol (DIPRIVAN) injection | Given | | 80 mg | | | | INTRAPROCEDURE PRN, Starting Mon | | 9 16:06 | | | | | 08/30/18 at 1606, Until Mon | | PST | | | | | 08/30/18 at 1804 | | | | | | + +-------+ +-------+---+---+ +-------+ +-------+---+---+ | Given | | 20 mg | | | | | 9 16:09 | | | | | | PST | | | | +-------+ +-------+---+---+ +---+---+ | | | +---+---+ + +-------+ +-------+---+---+ | succinylcholine (ANECTINE) | Given | | 80 mg | | | | injection INTRAPROCEDURE PRN, | | 9 16:06 | | | | | Starting 08/30/18 at 1606, | | PST | | | | | Until 08/30/18 at 1804 | | | | | | + +-------+ +-------+---+---+ +---+---+ | | | +---+---+ + +-------+ +---------+---+---+ | vasopressin (PITRESSIN) | Given | | 1 Units | | | | injection INTRAPROCEDURE PRN, | | 9 16:16 | | | | | Starting 08/30/18 at 1616, | | PST | | | | | Until 08/30/18 at 1804 | | | | | | + +-------+ +---------+---+---+ +-------+ +---------+---+---+ | Given | | 1 Units | | | | | 9 16:32 | | | | | | PST | | | | +-------+ +---------+---+---+ | Given | | 1 Units | | | | | 9 17:15 | | | | | | PST | | | | +-------+ +---------+---+---+ +---+---+ | | | +---+---+ in this encounter"
--- OUTSIDE RECORDS SUMMARY | ~2018-10-12 | XMS | Encounter Summary ---
Demographics + + + | Address | [address] | | | [place] [address] | + + + | Home Phone | | + + + | Preferred Language | Unknown | + + + | Marital Status | | + + + | Sikhism Affiliation | LUT | + + + | Race | White | + + + | Ethnic Group | Not or | + + + Author + + + | Author | [facility] | + + + | Organization | [facility] | + + + | Address | Unknown | + + + | Phone | Unavailable | + + + Support + + + + + | Name | Relationship | Address | Phone | + + + + + | STANTON MENENDEZ | ECON | [place] | | + + + + + Care Team Providers + +------+ + | Care Family Practice Md Name | Role | Phone | + [...] Open Reduction | | 2019 | | [facility] | MD [address] | Internal | | | | Admitting Desk | [facility] | Fixationleft tibial | | | | Located on the | [place], [place] | plateau fracture | | | | floor [address] [facility] | [address] | | | | | [facility] | [phone] | | | | | [place], [place] | | | | | | [address] | | | +--------+---------+ + + + [...] note may be different from the original. [facility] DEPARTMENT OF ORTHOPAEDICS & REHABILITATION INPATIENT HOSPITAL DISCHARGE SUMMARY & INTERDISCIPLINARY INSTRUCTIONS Patient: Emre Menendez CSN: [id number] Admission Date: 08/28/2018 Discharge Date: 09/02/2018 Attending Physician: Leonard Zarate MD PCP: Ilia Villegas MD Service: [facility] Orthopaedics & Rehabilitation Diagnoses Principal Final Diagnosis: [...] they suspect your wound is infected. Call [facility] Orthopedics first at [phone]. Activity Nonweightbearing left leg Condition on Discharge Stable Follow-Up Appointments ORTHOPEDICS OUTPATIENT CLINIC: OK to have local provider (PCP) remove sutures in 3 weeks (~ 09/20). Follow up in 6 weeks (~10/11) with Dr Zarate. Call [phone] to confirm or schedule this appointment. PCP: [...] about these medications RX DURABLE MEDICAL EQUIPMENT FL 19" wheelchair with elevated leg lifts Duration:3mo Problem: Closed fracture of left tibia and fibula, initial encounter Associated ICD10 Code: S82.202A, S82.402A Ask about: Should I take this medication? [facility] Orthopaedic Service Pain Policy At the 6-week [...] administration instructions. - Call Orthopedic Clinic at [phone] if any persistent, localized swelling that does [...] and ask for the orthopaedic surgery resident assembler and tester electronics. Additional Post-Op Instructions / What to Expect [...] feel that you will need more, call [phone] during business hours in order to get [...] that I, or Nurse Practitioner or Physician Publications Editor working with me, had a face to face encounter with this patient on 09/01/2018 On behalf of Attending Physician: Leonard Zarate MD I am ordering and certify that the following services are medically necessary [facility] Physical Therapy Evaluate and Treat I am ordering and certify that the following services are medically necessary [facility] Home Health Occupational Therapy Evaluate and Treat I am ordering and certify that the following services are medically necessary [facility] Home Health Care/Bath Aid I certify that [...] it has been our pleasure. MAGDALENA Barrios [facility] Department of Orthopaedics & Rehabilitation [address] [place] [address] Mail Code: OP31 [facility] [phone] in this encounter Medications at Time of [...] Orthopaedic Attending: Emre Menendez 1940 77 y.o. [id number] 09/02/2018 08/28/2018 5 Leonard Zarate MD Diagnosis(es): [...] well perfused Reflexes: not performed Natalya Millard, [facility] Orthopaedic Trauma Surgery Pager [phone] Jacqueline Flowers MD, JUANITA - 09/01/2018 9:04 AM PSTFormatting of this note may be different fro m the original. Orthopaedic Surgery Progress Note Patient: /Age: MRN: CSN: Date: Admission Date: Hospital Day: Orthopaedic Attending: Emre Menendez 1940 77 y.o. [id number] 09/01/2018 08/28/2018 4 Leonard Zarate MD Diagnosis(es): [...] to make a follow up appointment in [facility] 2 weeks with ORTHO TRAUMA & FRACTURE, [...] Reflexes: not performed Jacqueline Flowers MD, JUANITA [facility] Department of Orthopaedics & Rehabilitation [address] [place] [address] Mail Code: OP31 [facility] [address] Addendum: Emre Menendez is a 77 year [...] daily living required for both in and vox-ax-bnl-house activities. Patient has the physical and cognitive capacity to use a manual wheelchair. Jacqueline Flowers MD, JUANITA Orthopaedic Surgery resident, PGY1 [id number] Melchor Turner MD - 08/31/2018 10:19 AM PSTFormatting of this note may be different from the original. Orthopaedic Surgery Progress Note Patient: /Age: MRN: CSN: Date: Admission Date: Hospital Day: Orthopaedic Attending: Emre Menendez 1940 77 y.o. [id number] 08/31/2018 08/28/2018 3 Leonard Zarate MD Diagnosis(es): [...] to make a follow up appointment in [facility] 2 weeks with ORTHO TRAUMA & FRACTURE, AYLEEN Lara Subjective: -- pain well controlled -- discussed skiing. Pt looks forward to getting back out on the slope, acknowledges he's l ikely to miss this season, looks forward to possibly catching the tail end of summer on [place] Objective: BP 123/50 (BP Location: [...] Reflexes: not performed Jacqueline Flowers MD, JUANITA [facility] Department of Orthopaedics & Rehabilitation [address] [facility] Mail Code: OP31 [facility] [address] Addendum: Emre Menendez is a 77 [...] daily living required for both in and poc-xx-dpp-house activities. Patient has the physical and cognitive capacity to use a manual wheelchair. Melchor Turnre MD Orthopaedic Surgery, R2 08/31/2018 2:20 PM [...] acceleration time suggestive of patient prosthesis [facility], follow-up as an outpatient) - plan [...] - Convey TTE results to patient's local 911 emergency dispatcher -- (short acceleration time suggestive of patient [...] sign off at this time, please page [phone] with further questions. MD Clhoé Mcnamara MD Pager - [phone] Clinical and Medical Teaching Hospitalist Services [facility] I spent more than 25 minutes in [...] asked appropriate questions regarding surgical plan. Surgical inclusion internship and patient also engaged in a brief [...] Intake/Output Summary (Last 24 hours) at 08/30/18 0866 Last data filed at 08/30/18 0400 Gross [...] capillary refill < 2 seconds Natalya Millard, [facility] Orthopaedic Trauma Surgery Pager [phone] Associated attestation - Leonard Zarate MD - [...] call me for questions. LEONARD ZARATE MD [facility] [address]A [address] [id number] [place] [address] Marta Haines - 08/29/2018 3:24 PM PSTTransthoracic [...] Shirley Blevins MD Orthopaedic Surgery PGY-5 Pager: [phone] Dakotah Muñoz MD - 08/28/2018 11:27 PM PSTAdmit orders placed by orthopedics. Please compl ete TTE prior to coming to floor if possible. Dakotah Muñoz, PGY-2 Orthopedic Surgery [id number] Dakotah Muñoz MD - 08/28/2018 11:27 PM PSTFormatting of this note may be different from crys marrero. [facility] DEPARTMENT OF ORTHOPAEDICS & REHABILITATION COMPARTMENT CHECK [...] | | 2018 | Visit | | [address] [facility] | | | | | | Hussain Lassiter | | | | | | [place], [place] | | | | | | [address] | | | | | | [phone] | | | | | | | [...] Surgeon: Leonard Zarate MD | | | Publications Editor(s): kwame barrientos MD Preoperative Diagnosis: 1. left [...] 2-3 weeks locally in | | | [place] with his PCP for suture removal. He [...] Note | + + | Service Account, [facility] Res In Interface - 08/31/2018 8:06 AM [...] + + | BRETT R[facility]A | [address] [facility] [facility] [address] | [place], [place] | | | [facility] | [facility] | [address] | | | TESTS | | | | + + + + + PROCEDURE NOTE (08/30/2018 6:08 PM) + + + | Narrative | Performed At | + + + | Kwame Barrientos MD 08/30/2018 6:20 PM [facility] | | | [facility] Department of Orthopaedics & Rehabilitation | | | BRIEF OPERATIVE NOTE Patient: /Age: MRN: CSN: | | | Date: Admission Date: Hospital Day: Orthopaedic | | | Attending: Emre Menendez 1940 77 y.o. [id number] | | | 08/30/2018 08/28/2018 2 Leonard Zarate MD | | | Attending | | | Surgeon: Leonard Zarate MD Publications Editor(s): MD Melchor MARTINEZ | | | MD [...] ORTHO TRAUMA & FRACTURE, | | | [phone] Please call the clinic to make a follow up appointment | | | in approximately 2 weeks with Thao Hodge 8. Anticipated | | | Discharge: 2-3 days KWAME BARRIENTOS MD | | | [facility] | | | [place] Department of Orthopaedics & Rehabilitation [address] [place] [address] | | | [facility] Mail Code: OP31 [facility] [address] | | | | | + + [...] + + + | BRETT RIVERA | [address] | [place], [place] | | | [facility] | [address] | [address] | | | TESTS | | | [...] 32.5 | 32.0 - 36.0 g/dL | [facility] | | | | | SERVICES, CORE | + + + + + | RDW SD | 50.7 (H) | 35.1 - 46.3 fL | [facility] | | | | | SERVICES, CORE | + + + + + | PLATELET COUNT | 137 (L)Comment: Few | 150 - 400 K/cu mm | [facility] | | | platelet clumps present. | | SERVICES, CORE | | | Macroplatelets present. | | | + + + + + | MPV | 11.5 | 9.7 - 12.3 fL | [facility] | | | | | SERVICES, CORE | + + + + + | NRBC% | 0.0 | 0.0 - 0.3 % | [facility] | | | | | SERVICES, CORE | + + + + + | NRBC# | 0.00 | 0.00 - 0.02 K/cu mm | [facility] | | | | | SERVICES, CORE | + + + + + + + | Specimen | + + | Blood - Blood | + + + + + + + | Performing | Address | City/State/Zipcode | Phone Number | | Organization | | | | + + + + + | [facility] | [address] | [place] [address] | | | SERVICES, CORE | [address] | | | + + + + + MAGNESIUM, PLASMA (08/30/2018 5:00 AM) + +-------+ + + | Component | Value | Ref Range | Performed At | + +-------+ + + | MAGNESIUM,PLASMA | 2.5 | 1.6 - 2.6 mg/dL | [facility] | | | | | SERVICES, CORE | + +-------+ + + + + | Specimen | + + | Blood - Blood | + + + + + + + | Performing | Address | City/State/Zipcode | Phone Number | | Organization | | | | + + + + + | [facility] | [address] | [place] [address] | | | SERVICES, CORE | [address] [...] >60 mL/min | [facility] | | [place]ORE[place] | | | PHOEBE, CORE | + +---------+ + + | EGFR NON | 55 (L) | >60 mL/min | [facility] | | -[place]ORE[place] | | | PHOEBE, CORE | + [...] 6 | 4 - 11 mmol/L | [facility] | | | | | SERVICES, CORE | + +---------+ + + | POTASSIUM CMNT | No Hemo | | [facility] | | | | | SERVICES, CORE | + +---------+ + + + + | Specimen | + + | Blood - Blood | + + + + + | Narrative | Performed At | + + + | GFR is estimated using the MDRD equation recommended by the | [facility] | | National Kidney Disease Education Program. [...] | + + + + + | [facility] [employer] | [address] | [place] [address] | | | EDGAR SANDHU | [address] [...] EJECTION FRACTION | 57.5 | % | [facility] DEPT OF | | RANGE MEAN VALUE | | | CARDIOLOGY | + + + + + + + + | Narrative | Performed At | + + + | [facility] | [facility] DEPT OF | | [facility] Adult Echocardiography | CARDIOLOGY | | [address] | | | [place] [address] Pt Name: | | | EMRE MENENDEZ Study Date/Time 08/29/2018 / 2:25:40 | | | PMMRN: [id number] Most recent | | | prior: -Acc #: [id number] No. previous | | | echos: 0DOB: 1940 77 years Heart Rate: | | | 70 bpmHeight: 70.0 in Blood | | | Pressure: 128/62 mm/HgWeight: 198.0 | | | lb Gender: | | | MBSA: 2.08 m | | | Order ID: [id number] | | | Study Location: 14CSonographer: Marta Haines [facility] AE, PESonographer | | | 2:Referring [...] valvular or | | | perivalvular regurgitation. Construction Trades Teacher 3.0m/s, AT | | | < [...] valvular or perivalvular | | | regurgitation. Construction Trades Teacher 3.0m/s, AT < 100ms, PkGr 37, [...] Report | | | electronically signed by: [id number] Bruno Mars MD (08/30/2018, | | | 9:08:12 AM)Fellow(s) participating in diagnosis: Abbe Lizarraga; | | | Final | | + + + + + | Procedure Note | + + | Interface, Cardiology Results - 08/30/2018 9:08 AM [facility] [employer] | | [facility] Echocardiography Laboratory [facility] | | [place], [place] [address] Pt Name: EMRE Agudelo | | SUSAN Study Date/Time 08/29/2018 / 2:25:40 PMMRN: [id number] Most | | recent prior: -[facility] #: [id number] No. previous echos: 0DOB: 1940 77 | | years Heart Rate: 70 bpmHeight: 70.0 in Blood Pressure: | | 128/62 mm/HgWeight: 198.0 lb Gender: MBSA: 2.08 m | | Order ID: [id number] [facility] | | [employer] AE, PESonographer 2:Referring Provider: Yesenia Morley Performed: [...] no valvular or perivalvular | | regurgitation. Construction Trades Teacher 3.0m/s, AT < 100ms, PkGr 37, [...] There is no valvular or perivalvular regurgitation. Construction Trades Teacher 3.0m/s, AT < 100ms, PkGr | [...] and indexed values Report electronically signed by: [id number] | | Bruno Mars MD (08/30/2018, 9:08:12 [...] | | | |Report electronically signed by: [id number] Bruno Mars MD (08/30/2018, 9:08:12 AM) | |Fellow(s) participating in diagnosis: Abbe Lizarraga; | | | | | | | | Final | + + + + + + + | Performing | Address | City/State/Zipcode | Phone Number | | Organization | | | | + + + + + | [facility] | [address] | [place], [place] | | | CARDIOLOGY | [address] | [address] | | + + + + + [...] [facility] | [address] | [place], [place] | | | KAREN POINT OF CARE | [address] | [address] | | | TESTS | | | [...] | + + + + + | [facility] | [address] | [place] [address] | | | SERVICES, CORE | [address] [...] >60 mL/min | [facility] | | [place] | | | PHOEBE, CORE | + +---------+ + + | EGFR NON | 57 (L) | >60 mL/min | [facility] | | -[place]ORE[place] | | | SERVICES, CORE | + [...] | + + + + + | [facility] | [address] | [place] [address] | | | EDGAR SANDHU | SHELLEY [...] [facility] | [address] | [place], [place] | | | CARDIOLOGY | [address] | [address] | | + + + + + [...] + + + + + | [facility] | [address] | [place] [address] | | | EDGAR SANDHU | [address] [...] | + + + + + | [facility] | [address] | [place] [address] | | | SERVICES, CORE | [address] [...] | + + + + + | [facility] | [address] | [place] [address] | | | EDGAR SANDHU | [address] [...] | + + + + + | [facility] | [address] | [place] [address] | | | EDGAR SANDHU | [address] | | | + + + + + BLOOD BANK HOLD TUBE - DON T PROCESS (08/28/2018 8:25 PM) + + + + + | Component | Value | Ref Range | Performed At | + + + + + | SPECIMEN COLLECTED, | Sample received with | | [facility] | | HELD | marvin label/volume [...] | + + + + + | [facility] | [address] | [place] [address] | | | SERVICES, | [address] [...] | + + + + + | [facility] | [address] | [place] [address] | | | SERVICES, CORE | [address] | | | + + + + + CONFIRMATORY ABO/RH (08/28/2018 8:25 PM) + + + + + | Component | Value | Ref Range | Performed At | + + + + + | [facility] | O | | [facility] | | | | | SERVICES, [...] [facility] | [address] | [place] [address] | | | SERVICES, | [address] | | | | TRANSFUSION MEDICINE | | | | + + + + + ANTIBODY SCREEN (08/28/2018 8:25 PM) + + + + + | Component | Value | Ref Range | Performed At | + + + + + | Antibody Screen | Negative | | [facility] | | | | | SERVICES, [...] | + + + + + | [facility] | [address] [place] [address] | [place] [id number] | | | PHOEBE | [address] [...] 99.1 | 80.0 - 100.0 fL | [facility] | | | | | SERVICES, CORE | + + + + + | MCHC | 32.1 | 32.0 - 36.0 g/dL | [facility] | | | | | SERVICES, CORE | + + + + + | RDW SD | 51.2 (H) | 35.1 - 46.3 fL | [facility] | | | | | SERVICES, CORE | + + + + + | PLATELET COUNT | 188 | 150 - 400 K/cu mm | [facility] | | | | | SERVICES, CORE | + + + + + | MPV | 12.0 | 9.7 - 12.3 fL | [facility] | | | | | SERVICES, CORE | + + + + + | NRBC% | 0.0 | 0.0 - 0.3 % | [facility] | | | | | SERVICES, [...] [facility] | [address] | [place] [address] | | | SERVICES, CORE | [address] [...] | + + + + + | [facility] | [address] | [place] [address] | | | SERVICES, | [address] | | | | TRANSFUSION MEDICINE | | | | + + + + + COAGULOPATHY PANEL (INR,APTT,FIBRINOGEN) (08/28/2018 8:25 PM) + +-------+ + + | Component | Value | Ref Range | Performed At | + +-------+ + + | INR | 1.00 | 0.90 - 1.20 INR | [facility] | | | | | SERVICES, [...] [facility] | [address] | [place] [address] | | | PHOEBE, EDGAR | [address] [...] | | | | | NEEDED, Starting [facility] 08/31/18 at | | | | | | | 2130, Until [facility] 09/02/18 at 2026, | | | | [...]
--- OUTSIDE RECORDS SUMMARY | ~2018-10-12 | XMS | Encounter Summary ---
Demographics + + + | Address | [address] | | | [place] [address] | + + + | Home Phone | | + + + | Preferred Language | Unknown | + + + | Marital Status | | + + + | Religion Affiliation | 1028 | + + + | Race | Unknown | + + + | Ethnic Group | Unknown | + + + Author + + + | Author | [facility] [employer] | + + + | Organization | [facility] [employer] | + + + | Address | Unknown | + + + | Phone | Unavailable | + + + Support + + + + + | Name | Relationship | Address | Phone | + + + + + | Demi Menendez I | ECON | [address] | | | | | [place] | | | | | [address] | | + + + + + | Héctor Francois | ECON | Unknown | | + + + + + Care Team Providers + +------+ + | Care Saw Feeder Name | Role | Phone | + [...] + + | 08/11/ | Refill | MAYELIN Acton | Nyla Forman | Medication Refill | | 2019 | | [facility] [place] | J, EMAIL PRODUCTION SPECIALIST | | | | | [address] | | | | | | [address] | | | | | | [place] [address] | | | | | | [phone] | | | +--------+--------+ + + + [...] [place], | | | | | | [place] [address] | | | | | | [phone] | | | | | | | | +--------+---------+ + + + as of this encounter Visit Diagnoses Not on filein this encounter"
--- OUTSIDE RECORDS SUMMARY | ~2018-10-12 | XMS | Encounter Summary ---
Demographics + + + | Address | [address] | | | [place] [address] | + + + | Home Phone | | + + + | Preferred Language | Unknown | + + + | Marital Status | | + + + | Amish Affiliation | LUT | + + + | Race | White | + + + | Ethnic Group | Not or | + + + Author + + + | Author | [facility] | + + + | Organization | [facility] | + + + | Address [...] Team Providers + +------+ + | Care Surface Room Shop Optician Name | Role | Phone | + [...] + + | 08/28/ | Hospital | [facility] [address] | [place], | | | 2019 - | Encounter | [address] | Jeffrey Hull MD [address] | | | | | [address] | [address] | | | 09/02/ | | [place] [address] | Rd [place], [place] | | | 2019 | | [phone] | [address] | | | | | | [phone] | | | | | | | | | | | | Yesenia Hong MD | | | | | | [address] | | | | | | [place], | | | | | | [place] [address] | | | | | | [phone] | | | | | | | | | | | | Leonard Zarate MD | | | | | | [address] | | | | | | [place], | | | | | | [place] [address] | | | | | | [phone] | | | | | | | | +--------+ + [...] note may be different from the original. [facility] DEPARTMENT OF ORTHOPAEDICS & REHABILITATION INPATIENT HOSPITAL DISCHARGE SUMMARY & INTERDISCIPLINARY INSTRUCTIONS Patient: Emre Menendez CSN: [id number] Admission Date: 08/28/2018 Discharge Date: 09/02/2018 Attending Physician: Leonard Zarate MD PCP: Ilia Villegas MD Service: [facility] Orthopaedics & Rehabilitation Diagnoses Principal Final [...] intact without signs concerning for infection. The lulue nt was felt appropriate for discharge to [...] they suspect your wound is infected. Call [facility] Orthopedics first at [phone]. Activity Nonweightbearing left leg Condition on Discharge Stable Follow-Up Appointments ORTHOPEDICS OUTPATIENT CLINIC: OK to have local provider (PCP) remove sutures in 3 weeks (~ 09/20). Follow up in 6 weeks (~10/11) with Dr Zarate. Call [phone] to confirm or schedule this appointment. PCP: [...] about these medications RX DURABLE MEDICAL EQUIPMENT PR 19" wheelchair with elevated leg lifts Duration:3mo Problem: Closed fracture of left tibia and fibula, initial encounter Associated ICD10 Code: S82.202A, S82.402A Ask about: Should I take this medication? [facility] Orthopaedic Service Pain Policy At the [...] administration instructions. - Call Orthopedic Clinic at [phone] if any persistent, localized swelling that does [...] and ask for the orthopaedic surgery resident production statistical clerk. Additional Post-Op Instructions / What to Expect [...] feel that you will need more, call during business hours in order to get [...] that I, or Nurse Practitioner or Physician Nurse Epidemiologist working with me, had a face to face encounter with this patient on 09/01/2018 On behalf of Attending Physician: Leonard Zarate MD I am ordering and certify that the following services are medically necessary home health s ervic Home Health Physical Therapy Evaluate and Treat I am ordering and certify that the following services are medically necessary home health s ervic Home Health Occupational Therapy Evaluate and Treat I am ordering and certify that the following services are medically necessary home health s ervices Home Health Care/Bath Aid I certify that [...] it has been our pleasure. MAGDALENA Barrios [facility] Department of Orthopaedics & Rehabilitation [address] [place] [address] Mail Code: OP31 [facility] [address] in this encounter Medications at Time of [...] | | | | | | release (/EC) | | | | | | + [...] Orthopaedic Attending: Emre Menendez 1940 77 y.o. [id number] 09/02/2018 08/28/2018 5 Leonard Zarate MD Diagnosis(es): [...] well perfused Reflexes: not performed Natalya Millard, [facility] Orthopaedic Trauma Surgery Pager [phone] Jacqueline Flowers MD, JUANITA - 09/01/2018 9:04 AM PSTFormatting of this note may be different fro m the original. Orthopaedic Surgery Progress Note Patient: /Age: MRN: CSN: Date: Admission Date: Hospital Day: Orthopaedic Attending: Emre Menendez 1940 77 y.o. [id number] 09/01/2018 08/28/2018 4 Leonard Zarate MD Diagnosis(es): [...] to make a follow up appointment [facility] 2 weeks with ORTHO TRAUMA & [...] Reflexes: not performed Jacqueline Flowers MD, JUANITA [facility] Department of Orthopaedics & Rehabilitation [address] [place] [address] Mail Code: OP31 [facility] [id number] Addendum: Emre Menendez is a 77 year [...] daily living required for both in and qzh-ll-kok-house activities. Patient has the physical and cognitive capacity to use a manual wheelchair. Jacqueline Flowers MD, JUANITA Orthopaedic Surgery resident, PGY1 [id number] Melchor Turner MD - 08/31/2018 10:19 AM PSTFormatting of this note may be different from the original. Orthopaedic Surgery Progress Note Patient: /Age: MRN: CSN: Date: Admission Date: Hospital Day: Orthopaedic Attending: Emre Lackeyncer 1940 77 y.o. [id number] 08/31/2018 08/28/2018 3 Leonard Zarate MD Diagnosis(es): [...] to make a follow up appointment [facility] 2 weeks with ORTHO TRAUMA & FRACTURE, Thao Hodge, AYLEEN Subjective: -- pain well controlled -- discussed skiing. Pt looks forward to getting back out on the slope, acknowledges he's l ikkumar to miss this season, looks forward to possibly catching the tail end of summer on [place] Objective: BP 123/50 (BP Location: Right upper [...] Reflexes: not performed Jacqueline Flowers MD, JUANITA [facility] Department of Orthopaedics & Rehabilitation [address] [facility] Mail Code: OP31 [facility] [address] Addendum: Emre Menendez is a 77 year [...] daily living required for both in and wjr-xo-yxg-house activities. Patient has the physical and cognitive [...] acceleration time suggestive of patient prosthesis [facility], follow-up as an outpatient) - plan [...] - Convey TTE results to patient's local locker room clerk -- (short acceleration time suggestive of patient [...] sign off at this time, please page [phone] with further questions. MD Chloé Mcnamara MD Pager - [phone] Clinical and Medical Teaching Hospitalist Services [facility] I spent more than 25 minutes in the care of the patient of which greater than 50% was spent counseling the patient regarding perioperative management, TTE results; coordination of car e with orthopedics. NikhilannitaNatalya joyner AGACNP - 08/30/2018 8:52 AM PSTFormatting of [...] asked appropriate questions regarding surgical plan. Surgical web development intern and patient also engaged in a [...] Intake/Output Summary (Last 24 hours) at 08/30/18 0853 Last data filed at 08/30/18 0400 Gross [...] capillary refill < 2 seconds Natalya Millard, [facility] Orthopaedic Trauma Surgery Pager [phone] Associated attestation - Leonard Zarate MD - [...] call me for questions. LEONARD ZARATE MD [facility] [address] [id number] [place] [id number] Marta Haines - 08/29/2018 3:24 PM PSTTransthoracic [...] Shirley Blevins MD Orthopaedic Surgery PGY-5 Pager: [phone] Dakotah Muñoz MD - 08/28/2018 11:27 PM PSTAdmit orders placed by orthopedics. Please compl ete TTE prior to coming to floor if possible. Dakotah Muñoz, PGY-2 Orthopedic Surgery 18582 Dakotah Muñoz MD - 08/28/2018 11:27 PM PSTFormatting of this note may be different from th e original. [facility] DEPARTMENT OF ORTHOPAEDICS & REHABILITATION COMPARTMENT CHECK [...] | | 2018 | Visit | | [address] [facility] | | | | | | [facility] | | | | | | [place], [place] | | | | | | [address] | | | | | | [phone] | | | | | | | [...] Surgeon: Leonard Zarate MD | | | Nurse Epidemiologist(s): shireen barrientos MD Preoperative Diagnosis: 1. left | [...] Note | + + | Service Account, Madhavant Res In Interface - 08/31/2018 8:06 AM [...] [facility] | | | | | [facility] | | | | | CARE TESTS | + +---------+ + + + + + + + | Performing | Address | City/State/Zipcode | Phone Number | | Organization | | | | + + + + + | [facility] | [address] | [place], [place] | | | [facility] | [address] | [address] | | | TESTS | | | | + + + + + PROCEDURE NOTE (08/30/2018 6:08 PM) + + + | Narrative | Performed At | + + + | Shireen Barrientos MD 08/30/2018 6:20 PM [facility] | | [facility] Department of Orthopaedics & Rehabilitation | | | BRIEF OPERATIVE NOTE Patient: /Age: MRN: CSN: | | | Date: Admission Date: Hospital Day: Orthopaedic | | | Attending: Emre Menendez 1940 77 y.o. [id number] | | | 08/30/2018 08/28/2018 2 Leonard Zarate MD | | | Attending | | | Surgeon: Leonard Zarate MD Nurse Epidemiologist(s): SHIREEN BARRIENTOS MD [place] | | | MD Johnny Preoperative Diagnosis(es): [...] ORTHO TRAUMA & FRACTURE, | | | [phone] Please call the clinic to make a follow up appointment | | | in approximately 2 weeks with Thao Westfall. Anticipated | | | Discharge: 2-3 days SHIREEN BARRIENTOS MD | | | [facility] | | | [place] Department of Orthopaedics & Rehabilitation [address] [place] [address] | | | [facility] Mail Code: OP31 [facility] [address] | | | | | + + [...] 97 | 60 - 99 mg/dL | [facility] | | | | | [place] | | | | | CARE TESTS | + +-------+ + + + + + + + | Performing | Address | City/State/Zipcode | Phone Number | | Organization | | | | + + + + + | [facility] | [address] | [place], [place] | | | [facility] CARE | [address] | [address] | | | TESTS | | | | + + + + + CBC (HEMOGRAM) ONLY (08/30/2018 5:00 AM) + + + + + | Component | Value | Ref Range | Performed At | + + + + + | WHITE CELL COUNT | 9.42 | 3.50 - 10.80 K/cu mm | [facility] | | | | | SERVICES, CORE | + + + + + | RED CELL COUNT | 4.09 (L) | 4.50 - 6.00 M/cu mm | [facility] | | | | | SERVICES, [...] 98.5 | 80.0 - 100.0 fL | [facility] | | | | | SERVICES, CORE | + + + + + | MCHC | 32.5 | 32.0 - 36.0 g/dL | [facility] | | | | | SERVICES, CORE | + + + + + | RDW SD | 50.7 (H) | 35.1 - 46.3 fL | [facility] | | | | | SERVICES, CORE | + + + + + | PLATELET COUNT | 137 (L)Comment: Few | 150 - 400 K/cu mm | [facility] | | | platelet clumps present. | | SERVICES, CORE | | | Macroplatelets present. | | | + + + + + | MPV | 11.5 | 9.7 - 12.3 fL | [facility] | | | | | SERVICES, CORE | + + + + + | NRBC% | 0.0 | 0.0 - 0.3 % | [facility] | | | | | SERVICES, CORE | + + + + + | NRBC# | 0.00 | 0.00 - 0.02 K/cu mm | [facility] | | | | | SERVICES, CORE | + + + + + + + | Specimen | + + | Blood - Blood | + + + + + + + | Performing | Address | City/State/Zipcode | Phone Number | | Organization | | | | + + + + + | [facility] | [address] | [place] [address] | | | [place], [place] | [address] | | | + + + + + MAGNESIUM, PLASMA (08/30/2018 5:00 AM) + +-------+ + + | Component | Value | Ref Range | Performed At | + +-------+ + + | MAGNESIUM,PLASMA | 2.5 | 1.6 - 2.6 mg/dL | [facility] | | | | | PHOEBE, CORE | + +-------+ + + + + | Specimen | + + | Blood - Blood | + + + + + + + | Performing | Address | City/State/Zipcode | Phone Number | | Organization | | | | + + + + + | [facility] | [address] [facility] [address] [address] | [place] [address] | | | SERVICES, CORE | [address] | | | + + + [...] >60 mL/min | [facility] | | [place] | | | SERVICES, CORE | + +---------+ + + | EGFR NON | 55 (L) | >60 mL/min | [facility] | | -[place] | | | PHOEBE, CORE | + [...] | + + + + + | [facility] | [address] | [place] [address] | | | [place] | [address] | | | + + + [...] Performed At | + + + | [facility] | [facility] | | [facility] Adult Echocardiography | CARDIOLOGY | | Laboratory [facility], | | | [place] [address] Pt Name: | | | EMRE MENENDEZ Study Date/Time 08/29/2018 / 2:25:40 | | | PMMRN: [id number] Most recent | | | prior: -[facility] #: [id number] No. previous | | | echos: 0DOB: 1940 77 years Heart Rate: | | | 70 bpmHeight: 70.0 in Blood | | | Pressure: 128/62 mm/HgWeight: 198.0 | | | lb Gender: | | | MBSA: 2.08 m | | | Order ID: [id number] | | | Study Location: 14CSonographer: Marta Haines [facility] AE, PESonographer | | | 2:Referring [...] valvular or | | | perivalvular regurgitation. Spout Positioner 3.0m/s, AT | | | < 100ms, [...] valvular or perivalvular | | | regurgitation. Spout Positioner 3.0m/s, AT < 100ms, PkGr 37, MnGr [...] Report | | | electronically signed by: [id number] Bruno Mars MD (08/30/2018, | | | 9:08:12 AM)Fellow(s) participating in diagnosis: Abbe Lizarraga; | | | Final | | + + + + + | Procedure Note | + + | Interface, Cardiology Results - 08/30/2018 9:08 AM [facility] | | [facility] Echocardiography Laboratory [address] [place] [address] | | [place], [place] [address] Pt Name: EMRE Agudelo | | SUSAN Study Date/Time 08/29/2018 / 2:25:40 PMMRN: [id number] Most | | recent prior: -Acc #: [id number] No. previous echos: 0DOB: 1940 77 | | years Heart Rate: 70 bpmHeight: 70.0 in Blood Pressure: | | 128/62 mm/HgWeight: 198.0 lb Gender: MBSA: 2.08 m | | Order ID: [id number] [facility] | | [facility] AE, PESonographer 2:Referring Provider: Yesenia Ryanalities Performed: | | 2D, Color flow, Spectral [...] no valvular or perivalvular | | regurgitation. Spout Positioner 3.0m/s, AT < 100ms, PkGr 37, MnGr [...] There is no valvular or perivalvular regurgitation. Spout Positioner 3.0m/s, AT < 100ms, PkGr | | [...] and indexed values Report electronically signed by: [id number] | | Bruno Mars MD (08/30/2018, 9:08:12 [...] | | | |Report electronically signed by: [id number] Bruno Mars MD (08/30/2018, 9:08:12 AM) | |Fellow(s) participating in diagnosis: Abbe Lizarraga; | | | | | | | | Final | + + + + + + + | Performing | Address | City/State/Zipcode | Phone Number | | Organization | | | | + + + + + | [facility] | [address] | [place], [place] | | | CARDIOLOGY | [address] | [address] | | + + + + + CAPILLARY BLOOD GLUCOSE (NO CHG), POC (08/29/2018 9:44 AM) + +---------+ + + | Component | Value | Ref Range | Performed At | + +---------+ + + | BLOOD GLUCOSE, POC | 129 (H) | 60 - 99 mg/dL | [facility] | | | | | [facility] | | | | | CARE TESTS | + +---------+ + + + + + + + | Performing | Address | City/State/Zipcode | Phone Number | | Organization | | | | + + + + + | [facility] | [address] [facility] [address] | [place], [place] | | | [facility] | [address] | [address] | | | TESTS | | | [...] Preliminary: Sharad Saxena MD Dictation initiated: Sharad Parra | Aida Saxena MD 08/29/2018 12:34 PM | | [...] I | 0.27 | <0.80 ng/mL | [facility] | | | | | [place] [address] | + +-------+ + + + + | Specimen | + + | Blood - Blood | + + + + + + + | Performing | Address | City/State/Zipcode | Phone Number | | Organization | | | | + + + + + | [facility] | [address] | [place] [address] | | | SERVICES, [place] | [address] | | | + [...] [facility] | | | | | PHOEBE CORE | + +---------+ + + | CREATININE PLASMA | 1.23 | 0.70 - 1.30 mg/dL | [facility] | | (LAB) | | | SERVICES, CORE | + +---------+ + + | EGFR - | >60 | >60 mL/min | [facility] | | [place] | | | PHOEBE, CORE | + +---------+ + + | EGFR NON | 57 (L) | >60 mL/min | [facility] | | -[place] | | | SERVICES, CORE | + [...] the MDRD equation recommended by the | [facility] | | National Kidney Disease Education Program. [...] | + + + + + | [facility] | [address] | [place] [address] | | | SERVICES, CORE | [address] | | | + + + [...] + + + + + | [facility] | [address] | [place], [place] | | | CARDIOLOGY | [address] | [address] | | + + + + + [...] Sagrario Hardwick MD 08/29/2018 10:34 AM Preliminary: Aida Barrera | | Dictation initiated: Lillian Hardwick MD [...] | + + + + + | [facility] | [address] | [place] [address] | | | SERVICES, [place] | [address] | | | + + + + + RAINBOW HOLD TUBE - PURPLE TOP (08/28/2018 8:25 PM) + + | Specimen | + + | Blood | + + + + + + + | Performing | Address | City/State/Zipcode | Phone Number | | Organization | | | | + + + + + | [facility] | [address] | [place] [address] | | | [place] | [address] | | | + + + + + RAINBOW HOLD TUBE - GREEN TOP (08/28/2018 8:25 PM) + + | Specimen | + + | Blood | + + + + + + + | Performing | Address | City/State/Zipcode | Phone Number | | Organization | | | | + + + + + | [facility] | [address] | [place] [address] | | | SERVICES, CORE | [address] | | | + + + + + RAINBOW HOLD TUBE - BLUE TOP (08/28/2018 8:25 PM) + + | Specimen | + + | Blood | + + + + + + + | Performing | Address | City/State/Zipcode | Phone Number | | Organization | | | | + + + + + | [facility] | [address] | [place] [address] | | | SERVICES, CORE | [address] | | | + + + + + BLOOD BANK HOLD TUBE - DON T PROCESS (08/28/2018 8:25 PM) + + + + + | Component | Value | Ref Range | Performed At | + + + + + | SPECIMEN COLLECTED, | Sample received with | | [facility] | | HELD | adeq label/volume [...] | + + + + + | [facility] | [address] | [place] [address] | | | SERVICES, | [address] | | | | TRANSFUSION MEDICINE | | | | + + + + + TROPONIN I, PLASMA (08/28/2018 8:25 PM) + +-------+ + + | Component | Value | Ref Range | Performed At | + +-------+ + + | TROPONIN I | 0.30 | <0.80 ng/mL | [facility] | | | | | [address] [address] | + +-------+ + + + + | Specimen | + + | Blood - Blood | + + + + + + + | Performing | Address | City/State/Zipcode | Phone Number | | Organization | | | | + + + + + | [facility] | [address] | [place] [address] | | | [place] | [address] | | | + + + [...] | + + + + + | [facility] | [address] | [place] [address] | | | SERVICES, | [address] | | | | TRANSFUSION MEDICINE | | | | + + + + + ANTIBODY SCREEN (08/28/2018 8:25 PM) + + + + + | Component | Value | Ref Range | Performed At | + + + + + | Antibody Screen | Negative | | [facility] | | | [...] | + + + + + | [facility] | [address] | [place] [address] | | | SERVICES, | [address] | | | | TRANSFUSION MEDICINE | | | | + + + + + CBC (HEMOGRAM) ONLY (08/28/2018 8:25 PM) + + + + + | Component | Value | Ref Range | Performed At | + + + + + | WHITE CELL COUNT | 10.72 | 3.50 - 10.80 K/cu mm | [facility] | | | | | [place]OE[place], CORE | + + + + + | RED CELL COUNT | 4.46 (L) | 4.50 - 6.00 M/cu mm | [facility] | | | | | SERVICES, CORE | + + + + + | HEMOGLOBIN | 14.2 | 13.5 - 17.5 g/dL | [facility] | | | | | SERVICES, CORE | + + + + + | HEMATOCRIT | 44.2 | 41.0 - 53.0 % | [facility] | | | | | SERVICES, CORE | + + + + + | MCV | 99.1 | 80.0 - 100.0 fL | [facility] | | | | | SERVICES, CORE | + + + + + | MCHC | 32.1 | 32.0 - 36.0 g/dL | [facility] | | | | | SERVICES, CORE | + + + + + | RDW SD | 51.2 (H) | 35.1 - 46.3 fL | [facility] | | | | | SERVICES, CORE | + + + + + | PLATELET COUNT | 188 | 150 - 400 K/cu mm | [facility] | | | | | SERVICES, CORE | + + + + + | MPV | 12.0 | 9.7 - 12.3 fL | [facility] | | | | | SERVICES, CORE | + + + + + | NRBC% | 0.0 | 0.0 - 0.3 % | [facility] | | | [...] | + + + + + | [facility] | [address] | [place] [address] | | | SERVICES, CORE | [address] | | | + + + [...] [facility] | [address] | [place] [address] | | | SERVICES, | [address] | | | | TRANSFUSION MEDICINE | | | | + + + + + COAGULOPATHY PANEL (INR,APTT,FIBRINOGEN) (08/28/2018 8:25 PM) + +-------+ + + | Component | Value | Ref Range | Performed At | + +-------+ + + | INR | 1.00 | 0.90 - 1.20 INR | [facility] | | | | | SERVICES, [...] | + + + + + | [facility] | [address] | [place] [address] | | | SERVICES, CORE | [address] | | | + + + + + in this encounter Visit Diagnoses + + | Diagnosis | + + | Closed fracture of left tibia and fibula, initial encounter - Primary | + + | Acquired hypothyroidism | + + | Unspecified hypothyroidism | + + Admitting Diagnoses + + | Diagnosis | [...] 40 mg, subcutaneous, EVERY | | 9 15:35 | | | | | 24 HOURS, First dose on Sun | | PST | | | | | 08/29/18 at 1515, Until | | | | | | | Discontinued | | | | | | + +-------+ +-------+---+---------+ +---+---+ | | | +---+---+ + +-------+ [...] +-------+---+---------+ +---+---+ | | | +---+---+ + +-------+ +--------+---+---+ | HYDROmorphone (DILAUDID) | Given | | 0.2 mg | | | | injection 0.2 mg 0.2 mg, | | 9 09:20 | | | | | intravenous, EVERY 3 HOURS | | PST | | | | | NEEDED, Starting 08/29/18 at | | | | | | | 0008, Until 09/01/18 at 0904, | | | | | | | severe pain | | | | | | + +-------+ +--------+---+---+ +-------+ +--------+---+---+ | Given | | 0.2 mg | | | | | 9 12:37 | | | | | | PST | | | | +-------+ +--------+---+---+ | Given | | 0.2 mg | | | | | 9 22:00 | | | | | | PST [...] +--------+---+---+ +---+---+ | | | +---+---+ + +---------+ +------+---+---+ | morphine injection 4 mg 4 mg, | IV Push | | 4 mg | | | | intravenous, EVERY 10 MINUTES | | 9 21:24 | | | | | NEEDED, 5 doses, Starting Sat | | PST | | | | | 08/28/18 at 2043, Until Sun | | | | | | | 08/29/18 at 8, moderate pain | | | | | | + +---------+ +------+---+---+ +-------+ +------+---+---+ | Given | | 4 mg | | | | | 9 22:27 | | | | | | PST | | | | +-------+ +------+---+---+ | Given | | 4 mg | | | | | 9 23:55 | | | | | | PST | | | | +-------+ +------+---+---+ +---+---+ | | | +---+---+ + +-------+ +--------+---+---+ | oxyCODONE (immediate release) | Given | | 7.5 mg | | | | (ROXICODONE) tablet 2.5-7.5 mg | | 9 08:04 | | | | | 2.5-7.5 mg, oral, EVERY 4 HOURS | | PST | | | | | NEEDED, Starting 08/29/18 | | | | | | | at 1441, Until 08/30/18 at | | | | | | | 2305, moderate pain, unresponsive | | | | | | | to non-opioid medication | | | | | | + +-------+ +--------+---+---+ +-------+ +--------+---+---+ | Given | | 7.5 mg | | | | | 9 14:07 | | | | | | PST | | | | +-------+ +--------+---+---+ | Given | | 5 mg | | | | | 9 20:34 | | | | | | PST | | | | +-------+ +--------+---+---+ +---+---+ | | | +---+---+ + +-------+ +------+---+---+ | oxyCODONE (immediate release) | Given | | 5 mg | | | | (ROXICODONE) tablet 5 mg 5 mg, | | 9 00:35 | | | | | oral, EVERY 4 HOURS NEEDED, | | PST | | | | | Starting 08/29/18 at 0008, | | | | | | | Until 08/29/18 at 1441, | | | | | | | moderate pain, unresponsive to | | | | | | | non-opioid medication | | | | | | + +-------+ +------+---+---+ +-------+ +------+---+---+ | Given | | 5 mg | | | | | 9 11:42 | | | | | | PST | | | | +-------+ +------+---+---+ +---+---+ | | | +---+---+ + +-------+ +-------+---+---+ | oxyCODONE (immediate release) | Given | | 10 mg | | | | (ROXICODONE) tablet 5-10 mg 5-10 | | 9 09:14 | | | | | mg, oral, EVERY 4 HOURS | | PST | | | | | NEEDED, Starting 08/30/18 at | | | | | | | 2305, Until Thu08/31/18 at 2040, | | | | | | | moderate pain, unresponsive to | | | | | | | non-opioid medication | | | | | | + +-------+ +-------+---+---+ +-------+ +-------+---+---+ | Given | | 10 mg | | | | | 9 13:09 | | | | | | PST | | | | +-------+ +-------+---+---+ | Given | | 10 mg | | | | | 9 17:42 | | | | | | PST [...] | | | | | NEEDED, Starting 08/31/19 at | | | | | | | 2130, Until [place] [facility] 09/02/18 at 2026, | | | [...] +-------+---+---+ +---+---+ | | | +---+---+ + +---------+ +--------+---+---+ | perflutren lipid microspheres | IV Push | | 1.5 mL | | | | (DEFINITY) injection 1.5 mL 1.5 | | 9 15:04 | | | | | mL, intravenous, PROCEDURE ONCE, | | PST | | | | | 1 dose, 08/29/18 at 1530 | | | | | | + +---------+ +--------+---+---+ +---+---+ | | | +---+---+ + [...] | | +---+---+ + +-------+ +---------+---+---+ | promethazine (PHENERGAN) | Given | | 6.25 mg | | | | injection 6.25-12.5 mg 6.25-12.5 | | 9 18:27 | | | | | mg, intravenous, POSTPROCEDURE | | PST | | | | | PRN, 1 dose, Starting Thu08/30/18 | | | | | | | at 1814, Until 08/30/18 at | | | | | | | 1827, nausea/vomiting, 1st line | | | | | | + +-------+ +---------+---+---+ +---+---+ | | | +---+---+ [...]
--- OUTSIDE RECORDS SUMMARY | ~2018-10-12 | XMS | Encounter Summary ---
Demographics + + + | Address | [address] | | | [place] [address] | + + + | Home Phone | | + + + | Preferred Language | Unknown | + + + | Marital Status | | + + + | Judaism Affiliation | LUT | + + + | Race | White | + + + | Ethnic Group | Not or | + + + Author + + + | Author | [facility] | + + + | Organization | [facility] | + + + | Address | Unknown | + + + | Phone | Unavailable | + + + Support + + + + + | Name | Relationship | Address | Phone | + + + + + | STANTON MENENDEZ | ECON | [place] | | + + + + + Care Team Providers + +------+ + | Care Educational Psychology Teacher Name | Role | Phone | + [...] [address] | Jeffrey Hull MD [address] | | | | | [address] | [address] | | | 09/02/ | | [place] [address] | Rd [place], [place] | | | 2019 | | [phone] | [address] | | | | | | [phone] | | | | | | | | | | | | Yesenia Hong MD | | | | | | [address] | | | | | | [place] [place], | | | | | | [place] [address] | | | | | | [phone] | | | | | | | | | | | | Leonard Zarate MD | | | | | | [address] | | | | | | [address] [place], | | | | | | [place] [address] | | | | | | [phone] | | | | | | | [...] note may be different from the original. [facility] DEPARTMENT OF ORTHOPAEDICS & REHABILITATION INPATIENT HOSPITAL DISCHARGE SUMMARY & INTERDISCIPLINARY INSTRUCTIONS Patient: Emre Menendez CSN: [id number] Admission Date: 08/28/2018 Discharge Date: 09/02/2018 Attending Physician: Leonard Zarate MD PCP: Ilia Villegas MD Service: [facility] Orthopaedics & Rehabilitation Diagnoses Principal Final [...] suspect your wound is infected. Call [facility] Orthopedics first at [phone]. Activity Nonweightbearing left leg Condition on Discharge Stable Follow-Up Appointments ORTHOPEDICS OUTPATIENT CLINIC: OK to have local provider (PCP) remove sutures in 3 weeks (~ 09/20). Follow up in 6 weeks (~10/11) with Dr Zarate. Call [phone] to confirm or schedule this appointment. PCP: [...] about these medications RX DURABLE MEDICAL EQUIPMENT IN 19" wheelchair with elevated leg lifts Duration:3mo Problem: Closed fracture of left tibia and fibula, initial encounter Associated ICD10 Code: S82.202A, S82.402A Ask about: Should I take this medication? [facility] Orthopaedic Service Pain Policy At the [...] administration instructions. - Call Orthopedic Clinic at [phone] if any persistent, localized swelling that does [...] and ask for the orthopaedic surgery resident principal automation engineer. Additional Post-Op Instructions / What to Expect [...] feel that you will need more, call [phone] during business hours in order to get [...] that I, or Nurse Practitioner or Physician Pre Billing Specialist working with me, had a face to [...] it has been our pleasure. MAGDALENA Barrios [facility] Department of Orthopaedics & Rehabilitation [address] [place] [address] Mail Code: OP31 [facility] [address] in this encounter Medications at Time of [...] Orthopaedic Attending: Emre Menendez 1940 77 y.o. [id number] 09/02/2018 08/28/2018 5 Leonard Zarate MD Diagnosis(es): [...] well perfused Reflexes: not performed Natalya Millard, [facility] Orthopaedic Trauma Surgery Pager [phone] Jacqueline Flowers MD, JUANITA - 09/01/2018 9:04 AM PSTFormatting of this note may be different fro m the original. Orthopaedic Surgery Progress Note Patient: /Age: MRN: CSN: Date: Admission Date: Hospital Day: Orthopaedic Attending: Emre Menendez 1940 77 y.o. [id number] 09/01/2018 08/28/2018 4 Leonard Zarate MD Diagnosis(es): [...] to make a follow up appointment in [facility] 2 weeks with ORTHO TRAUMA & [...] Reflexes: not performed Jacqueline Flowers MD, JUANITA [facility] Department of Orthopaedics & Rehabilitation [address] [place] [address] Mail Code: OP31 [facility] [id number] Addendum: Emre Menendez is a 77 year [...] daily living required for both in and phc-yx-wjl-house activities. Patient has the physical and cognitive capacity to use a manual wheelchair. Jacqueline Flowers MD, JUANITA Orthopaedic Surgery resident, PGY1 [id number] Melchor Turner MD - 08/31/2018 10:19 AM PSTFormatting of this note may be different from the original. Orthopaedic Surgery Progress Note Patient: /Age: MRN: CSN: Date: Admission Date: Hospital Day: Orthopaedic Attending: Emre Lackeyncer 1940 77 y.o. [id number] 08/31/2018 08/28/2018 3 Leonard Zarate MD Diagnosis(es): [...] to make a follow up appointment in [facility] 2 weeks with ORTHO TRAUMA & FRACTURE, Thao Hodge, AYLEEN Subjective: -- pain well controlled -- discussed skiing. Pt looks forward to getting back out on the slope, acknowledges he's l ikkumar to miss this season, looks forward to possibly catching the tail end of summer on [place] Objective: BP 123/50 (BP Location: Right upper [...] Reflexes: not performed Jacqueline Flowers MD, JUANITA [facility] Department of Orthopaedics & Rehabilitation [address] [facility] Mail Code: OP31 [facility] [address] Addendum: Emre Menendez is a 77 year [...] daily living required for both in and rit-pw-kou-house activities. Patient has the physical and cognitive [...] - Convey TTE results to patient's local silverer -- (short acceleration time suggestive of patient [...] sign off at this time, please page [phone] with further questions. MD Chloé Mcnamara MD Pager - [phone] Clinical and Medical Teaching Hospitalist Services [facility] I spent more than 25 minutes in [...] asked appropriate questions regarding surgical plan. Surgical manager of international and patient also engaged in a brief [...] capillary refill < 2 seconds Natalya Millard, [facility] Orthopaedic Trauma Surgery Pager [phone] Associated attestation - Leonard Zarate MD - [...] call me for questions. LEONARD ZARATE MD [facility] [address] [address]/[id number] [place] [id number] Marta Haines - 08/29/2018 3:24 PM PSTTransthoracic [...] Shirley Blevins MD Orthopaedic Surgery PGY-5 Pager: [phone] Dakotah Muñoz MD - 08/28/2018 11:27 PM PSTAdmit orders placed by orthopedics. Please compl ete TTE prior to coming to floor if possible. Dakotah Muñoz, PGY-2 Orthopedic Surgery [address] Dakotah Muñoz MD - 08/28/2018 11:27 PM PSTFormatting of this note may be different from th e original. [facility] DEPARTMENT OF ORTHOPAEDICS & REHABILITATION COMPARTMENT CHECK [...] | | 2018 | Visit | | [address] [facility] | | | | | | [facility] | | | | | | [place], [place] | | | | | | [address] | | | | | | [phone] | | | | | | | [...] Surgeon: Leonard Zarate MD | | | Pre Billing Specialist(s): shireen barrientos MD Preoperative Diagnosis: 1. left [...] | [address] | [place], [place] | | | [facility] | [address] | [address] | | | TESTS | | | | + + + + + PROCEDURE NOTE (08/30/2018 6:08 PM) + + + | Narrative | Performed At | + + + | Shireen Barrientos MD 08/30/2018 6:20 PM [facility] | | | [facility] Department of Orthopaedics & Rehabilitation | | | BRIEF OPERATIVE NOTE Patient: /Age: MRN: CSN: | | | Date: Admission Date: Hospital Day: Orthopaedic | | | Attending: Emre Menendez 1940 77 y.o. [id number] | | | 08/30/2018 08/28/2018 2 Leonard Zarate MD | | | Attending | | | Surgeon: Leonard Zarate MD Pre Billing Specialist(s): SHIREEN BARRIENTOS MD [place] | | | MD Johnny Preoperative Diagnosis(es): [...] ORTHO TRAUMA & FRACTURE, | | | [phone] Please call the clinic to make a follow up appointment | | | in approximately 2 weeks with Thao Westfall. Anticipated | | | Discharge: 2-3 days SHIREEN BARRIENTOS MD | | | [facility] | | | [place] Department of Orthopaedics & Rehabilitation [address] [place] [address] | | | [facility] Mail Code: OP31 [facility] [address] | | | | | + + [...] | [address] | [place] | | | [facility] | [address] | [address] | | | TESTS | | | | + + + + + CBC (HEMOGRAM) ONLY (08/30/2018 5:00 AM) + + + + + | Component | Value | Ref Range | Performed At | + + + + + | WHITE CELL COUNT | 9.42 | 3.50 - 10.80 K/cu mm | [facility] | | | | | SERVICES, CORE | + + + + + | RED CELL COUNT | 4.09 (L) | 4.50 - 6.00 M/cu mm | [facility] | | | | [...] 98.5 | 80.0 - 100.0 fL | [facility] | | | | | SERVICES, CORE | + + + + + | MCHC | 32.5 | 32.0 - 36.0 g/dL | [facility] | | | | | SERVICES, CORE | + + + + + | RDW SD | 50.7 (H) | 35.1 - 46.3 fL | [facility] | | | [...] 11.5 | 9.7 - 12.3 fL | [facility] | | | | | SERVICES, CORE | + + + + + | NRBC% | 0.0 | 0.0 - 0.3 % | [facility] | | | | | SERVICES, CORE | + + + + + | NRBC# | 0.00 | 0.00 - 0.02 K/cu mm | [facility] | | | | | SERVICES, CORE | + + + + + + + | Specimen | + + | Blood - Blood | + + + + + + + | Performing | Address | City/State/Zipcode | Phone Number | | Organization | | | | + + + + + | [facility] | [address] | [place] [address] | | | [place]OE[place], [place] | SRAVANI [...] + + | [facility] | [address] [facility] | [place] [address] | | | SERVICES, CORE | SRAVANI [...] >60 mL/min | [facility] | | ERITREAN | | | SERVICES, CORE | + +---------+ + + | EGFR NON | 55 (L) | >60 mL/min | [facility] | | -ERITREAN | | | PHOEBE, CORE | + [...] + + | [facility] | [address] | [place] [address] | | | EDGAR SANDHU | SRAVANI [...] Performed At | + + + | [facility] | [facility] | | [facility] Adult Echocardiography | CARDIOLOGY | | [facility] | | | [place] [address] Pt Name: | | | EMRE MENENDEZ Study Date/Time 08/29/2018 / 2:25:40 | | | PMMRN: [id number] Most recent | | | prior: -[facility] #: [id number] No. previous | | | echos: 0DOB: 1940 77 years Heart Rate: | | | 70 bpmHeight: 70.0 in Blood | | | Pressure: 128/62 mm/HgWeight: 198.0 | | | lb Gender: | | | MBSA: 2.08 m | | | Order ID: [id number] | | | Study Location: 14CSonographer: Marta Haines [facility] AE, PESonographer | | | [...] valvular or | | | perivalvular regurgitation. Experience Design Director 3.0m/s, AT | | | < 100ms, [...] valvular or perivalvular | | | regurgitation. Experience Design Director 3.0m/s, AT < 100ms, PkGr 37, MnGr [...] Report | | | electronically signed by: [id number] Bruno Mars MD (08/30/2018, | | | 9:08:12 AM)Fellow(s) participating in diagnosis: Abbe Lizarraga; | | | Final | | + + + + + | Procedure Note | + + | Interface, Cardiology Results - 08/30/2018 9:08 AM [facility] | | [facility] Echocardiography Laboratory [address] [place] [address] | | [place], [place] [address] Pt Name: EMRE Agudelo | | SUSAN Study Date/Time 08/29/2018 / 2:25:40 PMMRN: [id number] Most | | recent prior: -Acc #: [id number] No. previous echos: 0DOB: 1940 77 | | years Heart Rate: 70 bpmHeight: 70.0 in Blood Pressure: | | 128/62 mm/HgWeight: 198.0 lb Gender: MBSA: 2.08 m | | Order ID: [id number] [facility] | | [facility] AE, PESonographer 2:Referring Provider: Yesenia Ryanalities Performed: [...] no valvular or perivalvular | | regurgitation. Experience Design Director 3.0m/s, AT < 100ms, PkGr 37, MnGr [...] There is no valvular or perivalvular regurgitation. Experience Design Director 3.0m/s, AT < 100ms, PkGr | | [...] and indexed values Report electronically signed by: [id number] | | Bruno Mars MD (08/30/2018, 9:08:12 [...] | | | |Report electronically signed by: [id number] Bruno Mars MD (08/30/2018, 9:08:12 AM) | |Fellow(s) participating in diagnosis: Abbe Lizarraga; | | | | | | | | Final | + + + + + + + | Performing | Address | City/State/Zipcode | Phone Number | | Organization | | | | + + + + + | [facility] | [address] | [place], [place] | | | CARDIOLOGY | [address] | [address] | | + + + + + [...] | + + + + + | [facility] | [address] [facility] [address] | [place], [place] | | | [facility]EN [facility] | [address] | [address] | | | TESTS | | | [...] I | 0.27 | <0.80 ng/mL | [facility] | | | | | ED[place]AR SANDHU | + +-------+ + + + + | Specimen | + + | Blood - Blood | + + + + + + + | Performing | Address | City/State/Zipcode | Phone Number | | Organization | | | | + + + + + | [facility] | [address] | [place] [address] | | | SERVICES, EDGAR | [address] [...] >60 mL/min | [facility] | | ERITREAN | | | PHOEBE, CORE | + +---------+ + + | EGFR NON | 57 (L) | >60 mL/min | [facility] | | -ERITREAN | | | SERVICES, CORE | + [...] the MDRD equation recommended by the | [facility] | | National Kidney Disease Education Program. [...] | + + + + + | [facility] | [address] | [place] [address] | | | SERVICES, CORE | SRAVANI [...] SANDERS OF | [address] | [place], [place] | | | CARDIOLOGY | [address] | [address] | | + + + + + [...] | + + + + + | [facility] | [address] | [place] [address] | | | SERVICES, EDGAR | SRAVANI [...] LABORATORY | [address] | [place] [address] | | | EDGAR SANDHU | SRAVANI [...] + + | [facility] | [address] | [place] [address] | | | SERVICES, CORE | SRAVANI [...] | + + + + + | [facility] | [address] | [place] [address] | | | SERVICES, CORE | [address] | | | + + + + + BLOOD BANK HOLD TUBE - DON T PROCESS (08/28/2018 8:25 PM) + + + + + | Component | Value | Ref Range | Performed At | + + + + + | SPECIMEN COLLECTED, | Sample received with | | [facility] | | HELD | adeq label/volume [...] + + | [facility] | [address] [facility] | [place] [address] | | | SERVICES, | [address] | | | | TRANSFUSION MEDICINE | | | | + + + + + TROPONIN I, PLASMA (08/28/2018 8:25 PM) + +-------+ + + | Component | Value | Ref Range | Performed At | + +-------+ + + | TROPONIN I | 0.30 | <0.80 ng/mL | [facility] | | | | | EDG[place] SANDHU | + +-------+ + + + + | Specimen | + + | Blood - Blood | + + + + + + + | Performing | Address | City/State/Zipcode | Phone Number | | Organization | | | | + + + + + | [facility] | [address] | [place] [address] | | | ED[place] SANDHU | SRAVANI [...] | + + + + + | [facility] | [address] | [place] [address] | | | SERVICES, | [address] [...] | + + + + + | [facility] | [address] | [place] [address] | | | SERVICES, | [address] | | | | TRANSFUSION MEDICINE | | | | + + + + + CBC (HEMOGRAM) ONLY (08/28/2018 8:25 PM) + + + + + | Component | Value | Ref Range | Performed At | + + + + + | WHITE CELL COUNT | 10.72 | 3.50 - 10.80 K/cu mm | [facility] | | | | | PHOEBE, CORE | + + + + + | RED CELL COUNT | 4.46 (L) | 4.50 - 6.00 M/cu mm | [facility] | | | | | SERVICES, CORE | + + + + + | HEMOGLOBIN | 14.2 | 13.5 - 17.5 g/dL | [facility] | | | | | SERVICES, CORE | + + + + + | HEMATOCRIT | 44.2 | 41.0 - 53.0 % | [facility] | | | | | SERVICES, CORE | + + + + + | MCV | 99.1 | 80.0 - 100.0 fL | [facility] | | | [...] [facility] | [address] | [place] [address] | | | SERVICES, CORE | SRAVANI [...] [facility] | [address] | [place] [address] | | | SERVICES, | [address] | | | | TRANSFUSION MEDICINE | | | | + + + + + COAGULOPATHY PANEL (INR,APTT,FIBRINOGEN) (08/28/2018 8:25 PM) + +-------+ + + | Component | Value | Ref Range | Performed At | + +-------+ + + | INR | 1.00 | 0.90 - 1.20 INR | [facility] | | | | [...] [facility] | [address] | [place] [address] | | | SERVICES, CORE | SRAVANI [...] | | | | | 2130, Until [facility] 09/02/18 at 2026, | | | [...]
--- OUTSIDE RECORDS SUMMARY | ~2018-10-12 | XMS | Encounter Summary ---
Demographics + + + | Address | [address] | | | [place] [address] | + + + | Home Phone | | + + + | Preferred Language | Unknown | + + + | Marital Status | | + + + | Restorationism Affiliation | 1028 | + + + | Race | Unknown | + + + | Ethnic Group | Unknown | + + + Author + + + | Author | [facility] [employer] | + + + | Organization | [facility] [employer] | + + + | Address | Unknown | + + + | Phone | Unavailable | + + + Support + + + + + | Name | Relationship | Address | Phone | + + + + + | Demi Menendez I | ECON | [address] | | | | | [place] | | | | | [address] | | + + + + + | Héctor Francois | ECON | Unknown | | + + + + + Care Team Providers + +------+ + | Care Superintendent Greens Name | Role | Phone | + +------+ + | Ilai Villegas MD | PCP | | + +------+ + Reason for Visit + + + | Reason | Comments | + + + | Medication Refill | | + + + Encounter Details +--------+--------+ + + + | Date | Type | Department | Care Team | Description | +--------+--------+ + + + | 08/11/ | Refill | [facility] [place] | Nyla Forman | Medication Refill | | 2019 | | Cardiology [place] | J, HYDROGRAPHICAL TECHNICAL OFFICER | | | | | [address] | | | | | | [address] | | | | | | [place] [address] | | | | | | [phone] | | | +--------+--------+ + + + [...] [place], | | | | | | [place] [address] | | | | | | [phone] | | | | | | | | +--------+---------+ + + + as of this encounter Visit Diagnoses Not on filein this encounter"
--- OUTSIDE RECORDS SUMMARY | ~2018-10-12 | XMS | Encounter Summary ---
Demographics + + + | Address | [address] | | | [place] [address] | + + + | Home Phone | | + + + | Preferred Language | Unknown | + + + | Marital Status | | + + + | Muslim Affiliation | LUT | + + + | Race | White | + + + | Ethnic Group | Not or | + + + Author + + + | Author | [facility] | + + + | Organization | [facility] | + + + | Address [...] Team Providers + +------+ + | Care Security Installer Name | Role | Phone | + [...] | | | | | [place], | | | | | | [place] [address] | | | +--------+--------+ + + + [...] [address] | | | | | | [place], [place] | | | | | | [address] | | | | | | [phone] | | | | | | | | +--------+---------+ + + + as of this encounter Visit Diagnoses Not on filein this encounter"
--- OUTSIDE RECORDS SUMMARY | ~2018-10-12 | XMS | Encounter Summary ---
Demographics + + + | Address | [address] | | | [place] [address] | + + + | Home Phone | | + + + | Preferred Language | Unknown | + + + | Marital Status | | + + + | Mosque Affiliation | LUT | + + + [...] Team Providers + +------+ + | Care Cash Surrender Calculator Name | Role | Phone | + +------+ + | Ilia Villegas MD | PCP | | + +------+ + Encounter Details +--------+ + + + + | Date | Type | Department | Care Team | Description | +--------+ + + + + | 09/02/ | Pharmacy | Outpatient Retail | | | | 2019 | Visit | [facility] | | | | | | [address] | | | | | | [facility] | | | | | | [place], [place] | | | | | | [address] | | | +--------+ + + + [...] + + + as of this encounter Functional Status + + + [...] | | 2018 | Visit | | [address] | | | | | | [address] | | | | | | [place], [place] | | | | | | [address] | | | | | | [phone] | | | | | | | | +--------+---------+ + + + as of this encounter Visit Diagnoses Not on filein this encounter"
--- OUTSIDE RECORDS SUMMARY | ~2018-10-12 | XMS | Encounter Summary ---
Demographics + + + | Address | [address] | | | [place] [address] | + + + | Home Phone | | + + + | Preferred Language | Unknown | + + + | Marital Status | | + + + | Judaism Affiliation | 1028 | + + + | Race | Unknown | + + + | Ethnic Group | Unknown | + + + Author + + + | Author | [facility] [employer] | + + + | Organization | [facility] [employer] | + + + | Address | Unknown | + + + | Phone | Unavailable | + + + Support + + + + + | Name | Relationship | Address | Phone | + + + + + | Demi Menendez I | ECON | [address] | | | | | [place] | | | | | [address] | | + + + + + | Héctor Francois | ECON | Unknown | | + + + + + Care Team Providers + +------+ + | Care Bologna Maker Name | Role | Phone | + [...] + | 08/08/ | Refill | [facility] [place] | Gloria Chavez, | Medication Refill | | 2018 | | Cardiology [place] | [address] | | | | | [address] | [address] [place], | | | | | Mauricio [facility] [address] | [place] [address] | | | | | [place] [address] | [phone] | | | | | [phone] | | | +--------+--------+ + + + [...] | | | | | | [place] [address] | | | | | | [phone] | | | | | | | | +--------+---------+ + + + as of this encounter Visit Diagnoses Not on filein this encounter"
--- OUTSIDE RECORDS SUMMARY | ~2018-10-12 | XMS | Clinical Summary ---
Demographics + + + | Address | [address] | | | [place] [address] | + + + | Home Phone | | + + + | Preferred Language | Unknown | + + + | Marital Status | | + + + | Methodist Affiliation | 1028 | + + + | Race | Unknown | + + + | Ethnic Group | Unknown | + + + Author + + + | Author | [facility] [employer] | + + + | Organization | [facility] [employer] | + + + | Address | Unknown | + + + | Phone | Unavailable | + + + Support + + + + + | Name | Relationship | Address | Phone | + + + + + | Demi Davis I | ECON | [address] | | | | [place] | | | | | [address] | | + + + + + | Héctor Francois | ECON | Unknown | | + + + + + Care Team Providers + +------+ + | Care Magnetic Resonance Technologist Name | Role | Phone | + [...] prophylaxis | | reenforced.Last Echo, 12/10/2015 ([facility]): bio-AVR, stable, | | no AI, peak/mean [...] Refill | | 2018 | | | [place] | | +--------+--------+ + + + [...] | | | | | | [place] [address] | | | | | | [phone] | | | | | | | [...] | 07/12/ | [id number] | | - [id number]: Qty: 1 | | Heart | LIFESCIENCE | | 2020 | [id number] | | on 09/04/2015 by Rhona | | | Renae POWELL - | | | /[id number] | | MD Daniel | | | EDLS | | | 86 / | + +------+-------+ +--------+--------+--------+ | Plate Strnl Acute [id number] - | | N/A: | ACUTE | | 10/04/ | [id number] | | SnaImplanted: Qty: 1 on | [...] +------+-------+ + | MEDICARE | MEDICA | [id number] | | | [address] | | | RE | | | | [place] [address] | | | IP-OP | | | | | + +--------+ +------+-------+ + | [employer] | MUTUAL | [id number] | | | | | | OF | | | | | | | [place] | | | | | + +--------+ [...] | [place] | | | [address] | [address] | + +--------+ +--------+ + +
--- OUTSIDE RECORDS SUMMARY | ~2018-10-12 | XMS | Encounter Summary ---
Demographics + + + | Address | [address] | | | [place] [address] | + + + | Home Phone | | + + + | Preferred Language | Unknown | + + + | Marital Status | | + + + | Worship Affiliation | LUT | + + + | Race | White | + + + | Ethnic Group | Not or | + + + Author + + + | Author | [facility] | + + + | Organization | [facility] | + + + | [...] Team Providers + +------+ + | Care Paper Cup Machine Tender Name | Role | Phone | + [...] [place] | | | | | | [facility] | | | | | | [place], [place] | | | | | | [address] | | | +--------+ + + + [...] | | 2018 | Visit | | [address] | | | | | | [address] | | | | | | [place], [place] | | | | | | [address] | | | | | | [phone] | | | | | | | | +--------+---------+ + + + as of this encounter Visit Diagnoses Not on filein this encounter"
--- OUTSIDE RECORDS SUMMARY | ~2018-10-12 | XMS | Encounter Summary ---
Demographics + + + | Address | [address] | | | [place] [address] | + + + | Home Phone | | + + + | Preferred Language | Unknown | + + + | Marital Status | | + + + | Buddhism Affiliation | LUT | + + + | Race | White | + + + | Ethnic Group | Not or | + + + Author + + + | Author | [facility] | + + + | Organization | [facility] | + + + | Address | Unknown | + + + | Phone | Unavailable | + + + Support + + + + + | Name | Relationship | Address | Phone | + + + + + | STANTON DAVIS | ECON | [place] | | + + + + + Care Team Providers + +------+ + | Care Financial Officer Name | Role | Phone | + [...] | | | 2019 | Event | [facility] | [address] [facility] | | | | | Admitting Desk | [facility] | | | | | Located on the 9 | [place], [place] | | | | | floor [address] [facility] | [address] | | | | | [facility] | [phone] | | | | | [place], [place] | | | | | | [address] | | | +--------+ + + + [...] [address] | | | | | | [place], [place] | | | | | | [address] | | | | | | [phone] | | | | | | | [...]
--- NOTE | 2018-10-12 14:01 | EKG ---
[facility] [address] [facility] [place] [address] Signed Sinus rhythm with occasional premature ventricular complexes Left axis deviation Nonspecific intraventricular block Abnormal QRS-T angle, consider primary T wave abnormality Abnormal ECG When compared with ECG of 28-AUG-2018 13:43, premature ventricular complexes are now present Confirmed by BURT CANNON MD ([id number]) on 10/12/2018 2:01:33 PM Electronically Signed By: BURT CANNON MD 10/12/18 1401 PATIENT NAME: EMRE DAVIS Electrocardiogram DATE OF : 38 PHYSICIAN: BURT CANNON MD REPORT #: [id number] REPORT IS CONFIDENTIAL AND NOT TO BE RELEASED WITHOUT AUTHORIZATION
== END ==
LOC: ED 12:59
DX: I63.9 Cerebral infarction, unspecified (principal); I10 Essential (primary) hypertension; Z88.5 Allergy status to narcotic agent; Z88.8 Allergy status to other drugs, medicaments and biological substances; Z79.899 Other long term (current) drug therapy; Z79.82 Long term (current) use of aspirin
CPT/HCPCS: 70450; 70496; 70498; 80053; 84484; 85025; 85610; 85730; 93005; 93010; 99285-25; Q9967

== ENCOUNTER 2021-03-25 07:38 | Day surgery (SDC) | payer MEDICARE, OTHER ==
[~2021-03-25] VITALS: Ht 175.3 cm; Wt 86.3 kg
--- NOTE | ~2021-03-25 | OR ---
[facility] [address] [place], [place] [address] Draft DATE OF OPERATION: 03/25/2021 SURGEON: Emre Mendoza MD PREOPERATIVE DIAGNOSIS: Cervical dysphagia without clinical evidence of gastroesophageal reflux. POSTOPERATIVE DIAGNOSIS: Mild distal esophagitis and mild antral gastritis. PROCEDURE: Esophagogastroduodenoscopy with biopsies. ANESTHESIA: Intravenous sedation, fentanyl 100 mcg and Versed 2 mg. INDICATION: This 80-year-old white man is a patient of Dr. Ilia Villegas well known to me from the past. He underwent carotid endarterectomy by me in 2005 on the right side and has done well since then. He has also had colonoscopy and hernia repair, but no prior upper endoscopy. The patient has had aortic stenting in 2014. He also has hypertension, BPH symptoms and hypothyroidism. He does not have clinical reflux symptoms generally speaking. He does have recently identified problem with progressive swallowing problems. He has atypical dysphagia mostly of the cervical esophagus. He was supposed to have had a speech therapist evaluation with upper GI in March 15, but failed to show for that visit. A prior upper GI has been performed, which was considered normal (his interpretation). He is admitted at this time to undergo upper endoscopy to better characterize his problem. He understands the risks of bleeding, infection, perforation, and so forth related to upper endoscopy and wished to proceed. FINDINGS: The vocal cords had chronic atrophic changes, but no sign of neoplasm proper. Esophagus itself had mild distal esophagitis, but no stricture. No typical evidence of eosinophilic esophagitis. The stomach had mild antral gastritis. CLOtest was equivocal post procedure. The duodenum was normal. The flap valve appeared relatively intact. DESCRIPTION OF PROCEDURE: PATIENT NAME: EMRE DAVIS OPERATIVE REPORT DATE OF : 38 REPORT #: [id number] PHYSICIAN: EMRE MENDOZA MD PCP: ILIA VILLEGAS MD REPORT IS CONFIDENTIAL AND NOT TO BE RELEASED WITHOUT AUTHORIZATION [facility] [address] [place], [place] [address] Draft The patient was brought to endoscopy suite and placed in lateral decubitus position and given topical lidocaine hypopharyngeal spray anesthesia. He was given intravenous sedation to the point of slurred speech and nystagmus with full cardiopulmonary monitoring. A bite block was placed. The Olympus video upper endoscope was passed in the hypopharynx. The vocal cords were well visualized and appeared to be somewhat atrophic. There was no sign of neoplasm. The scope was easily advanced in the esophagus. There was no evidence of bulky abnormality there. The scope was advanced down the esophagus into the stomach. Rugal folds appeared normal. The antrum had mild inflammation, but not much. The pylorus was normal. Scope was passed through into the duodenum, which was also normal. Biopsies were taken of the duodenum to assess for celiac disease. The scope was withdrawn to the pyloric channel, which was normal and biopsies then taken of the antrum for both YOLANDA and pathologic testing. The retroflexed view showed normal rugal folds. The flap valve was reasonably intact. There was no sign of large hiatal hernia. Scope was withdrawn to the distal esophagus and the distal most portion was totally normal. Proximal to this a few cm with some erosive type changes, somewhat atypical in appearance, narrow band imaging did confirm these. This did not appear to be a Santos's type issue. Those areas were biopsied additionally. The scope was further withdrawn. The midesophagus was biopsied; there was no evidence of eosinophilic esophagitis from an endoscopic perspective. Careful withdrawal of scope particular in the upper portion showed no sign of other abnormality other than mild chronic inflammatory changes. The scope was removed and the patient was taken to the recovery room in good condition. CONCLUDING DIAGNOSIS: Uncertain cause of his dysphagia. Possibility of eosinophilic esophagitis must be considered. Primary dysmotility problems are also a strong consideration. empirically treat with Prilosec 20 mg p.o. daily. We will encourage him to reschedule for his speech pathologist evaluation concurrent to video esophagram. We will see patient back in the office in a month or so. I would not intend for him to be on long-term Prilosec long-term PPI therapy, but it may be beneficial empirically to see if he has an improvement with a relatively short course of medication. MD PRUDENCE Niño/REBECCAL /[id number] PATIENT NAME: EMRE DAVIS OPERATIVE REPORT DATE OF : 38 REPORT #: [id number] PHYSICIAN: EMRE MENDOZA MD PCP: ILIA VILLEGAS MD REPORT IS CONFIDENTIAL AND NOT TO BE RELEASED WITHOUT AUTHORIZATION [address] [address] Draft cc: Ilia Villegas MD Copies: ILIA VILLEGAS MD ~ PATIENT NAME: EMRE DAVIS OPERATIVE REPORT DATE OF : 38 REPORT #: [id number] PHYSICIAN: EMRE MENDOZA MD PCP: ILIA VILLEGAS MD REPORT IS CONFIDENTIAL AND NOT TO BE RELEASED WITHOUT AUTHORIZATION
[~2021-03-25 07:38] MED LIST changes: +PLAVIX75 MG PO
--- NOTE | 2021-03-25 09:17 | NUR ---
03/25/21 0917 Melina Vazquez 0903 PT ARRIVED TO PACU ON 3L NC. PT WAKES EASILY AND IS REORIENTED TO PACU. VSS. 0904 O2 TURNED OFF. 0911 MD AT BEDSIDE TALKING TO PT.
--- NOTE | 2021-03-26 16:28 | PATH ---
[facility] [address] [place], [place] [address] Signed SPECIMEN(S): A DUODENAL BIOPSY SPECIMEN(S): B ANTRUM/PYLORUS BIOPSY SPECIMEN(S): C LOWER ESOPHAGUS BIOPSY SPECIMEN(S): D MID ESOPHAGUS BIOPSY SPECIMEN SOURCE: A. DUODENAL BIOPSY B. ANTRUM/PYLORUS BIOPSY C. LOWER ESOPHAGUS BIOPSY D. MID ESOPHAGUS BIOPSY CLINICAL HISTORY: Esophagogastroduodenoscopy; c/o esophageal dysphagia. MICROSCOPIC DESCRIPTION: Histologic sections of all submitted blocks are examined by light microscopy. These findings, together with the gross examination, support the pathologic diagnosis. FINAL PATHOLOGIC DIAGNOSIS: A. Duodenum, biopsy: - Benign duodenal mucosa, negative for significantly increased intraepithelial lymphocytosis and villous blunting. B. Antrum/pylorus, biopsy: - Mild chemical/reactive gastropathy. - Negative for intestinal metaplasia. - Negative for Helicobacter pylori organisms on routine stain. C. Lower esophagus, biopsy: - Benign squamous epithelium with some reflux changes. - Negative for intestinal metaplasia and dysplasia. D. Middle esophagus, biopsy: - Benign squamous epithelium. - Negative for acute inflammation and increased eosinophils. DDF:vlg:C2NR GROSS DESCRIPTION: Four specimens are received in four containers labeled with "JS." A. The specimen, labeled "JS, 1," and designated on the requisition "duodenal biopsy," is received in formalin and consists of two fragments of pink-santoyo tissue (0.2-0.3 cm in greatest dimension). The specimen is submitted entirely in cassette (A1). B. The specimen, labeled "JS, 2," and designated on the requisition PATIENT NAME: EMRE DAVIS PATHOLOGY DATE OF : 38 REPORT #: [id number] PHYSICIAN: CONTRERAS PATHOLOGY PCP: DEE DODSON MD REPORT IS CONFIDENTIAL AND NOT TO BE RELEASED WITHOUT AUTHORIZATION [facility] [address] [place], [place] [address] Signed "antrum/pylorus biopsy," is received in formalin and consists of two fragments of pink-santoyo tissue (0.2 and 0.3 cm in greatest dimension). The specimen is submitted entirely in cassette (B1). C. The specimen, labeled "JS, 3," and designated on the requisition "lower esophagus biopsy," is received in formalin and consists of four fragments of white-santoyo tissue (0.2-0.4 cm in greatest dimension). The specimen is submitted entirely in cassette (C1). D. The specimen, labeled "JS, 4," and designated on the requisition "middle esophagus biopsy," is received in formalin and consists of two fragments of white-santoyo tissue (0.2 and 0.4 cm in greatest dimension). The specimen is submitted entirely in cassette (D1). AC (under the direct supervision of a pathologist) The Gross Description was prepared using a voice recognition system. The report was reviewed for accuracy; however, sound-alike word errors, addition and/or deletions may occur. If there is any question about this report, please contact Client Services. PERFORMING LABORATORY: The technical component was performed by [facility], [address] [place] [id number] (Field Sales Specialist: Lisette Hernandez MD; CLIA# [id number]). [facility] [place], [address] [place] [address] (CLIA#: [id number]) Diagnostician: Zheng Sherwood DO Pathologist Electronically Signed 03/26/2021 Copies: ~ PATIENT NAME: EMRE DAVIS PATHOLOGY DATE OF : 38 REPORT #: [id number] PHYSICIAN: CONTRERAS AYALA PCP: DEE DODSON MD REPORT IS CONFIDENTIAL AND NOT TO BE RELEASED WITHOUT AUTHORIZATION
== END 2021-03-25 09:48 | disposition home or self-care (01) ==
LOC: OPS 07:38 → DS 07:38 → OPS 08:30
PROVIDERS: ATTEND Surgery
PROC: 0DB78ZX Excision of Stomach, Pylorus, Via Natural or Artificial Opening Endoscopic, Diagnostic (ICD-10-PCS; 2021-03-25)
PROC: 0DB28ZX Excision of Middle Esophagus, Via Natural or Artificial Opening Endoscopic, Diagnostic (ICD-10-PCS; 2021-03-25)
PROC: 0DB38ZX Excision of Lower Esophagus, Via Natural or Artificial Opening Endoscopic, Diagnostic (ICD-10-PCS; 2021-03-25)
PROC: 0DB98ZX Excision of Duodenum, Via Natural or Artificial Opening Endoscopic, Diagnostic (ICD-10-PCS; principal; 2021-03-25 08:30)
DX: K20.90 Esophagitis, unspecified without bleeding (principal); K29.70 Gastritis, unspecified, without bleeding; K31.9 Disease of stomach and duodenum, unspecified; I10 Essential (primary) hypertension; E03.9 Hypothyroidism, unspecified; R13.19 Other dysphagia; Z88.8 Allergy status to other drugs, medicaments and biological substances; Z86.79 Personal history of other diseases of the circulatory system; Z98.890 Other specified postprocedural states
CPT/HCPCS: 88305; 99153; G0500; J2250; J3010

== ENCOUNTER 2025-03-06 11:18 | Emergency (ER) | payer MEDICARE, OTHER ==
[~2025-03-06] VITALS: Ht 175.3 cm; Wt 84.8 kg
[2025-03-06 14:45] VITALS: BP 148/65
== END 2025-03-06 14:45 | disposition home or self-care (01) ==
LOC: ED 11:18
DX: S51.812A Laceration without foreign body of left forearm, initial encounter (principal); W22.8XXA Striking against or struck by other objects, initial encounter; I10 Essential (primary) hypertension; Z88.5 Allergy status to narcotic agent; Z88.8 Allergy status to other drugs, medicaments and biological substances; Z88.6 Allergy status to analgesic agent; Z79.899 Other long term (current) drug therapy; Z79.890 Hormone replacement therapy
CPT/HCPCS: 99282